=== PATIENT | female | born 1930 | race Caucasian/White ===

== ENCOUNTER 2017-01-15 16:55 | Inpatient (IN) | payer OTHER ==
[~2017-01-15] VITALS: Ht 165.1 cm; Wt 85.0 kg
[2017-01-15] MEDS ORDERED: ALBUT/IPRATROP 3MG/0.5MG NEB 3 ML VIAL INH STA (17:04)
--- NOTE | 2017-01-15 17:11 | EMERGENCY ROOM VISIT NOTE ---
History Report prepared by Amparo: Noah Jean Under the Supervision of: Dr. Vasiliy Quinones M.D. First contact with patient: 17:00 Stated Complaint: DIFFICULTY BREATHING/ [place] History of Present Illness The patient is an 86 year old female who presents to the Emergency Room with complaints of constant shortness of breath beginning four days ago. The patient states that she also has a productive cough. She reports that she has been on antibiotics for a couple days, but she is not getting better. She denies abdominal pain. She notes that she has been on Levaquin for the past three days.The patient states that she was not in the hospital recently. Nursing staff notes she has a history of pneumonia and a blood pressure above 120. EMS reports that patient was tachycardic and was having trouble breathing en route. They note the patient was given 500mL of fluid and a DuoNeb treatment. Source of History: patient, EMS, nursing staff Onset: four days ago Position: chest Quality: other (SOB) Timing: constant Associated Symptoms: + cough, No abdominal pain Review of Systems See HPI for pertinent positives & negatives. A total of 10 systems reviewed and were otherwise negative. Past Medical & Surgical Medical Problems: (1) Cough (2) Dyspnea on exertion (3) No Known Active Medical Problems Family History Patient reports no known family medical history. Social History Occupation Status: retired Current/Historical Medications Scheduled Allopurinol (Zyloprim), 100 MG PO DAILY Amlodipine (Norvasc), 5 MG PO DAILY Aspirin (Aspirin Ec), 81 MG PO DAILY Ciprofloxacin Ophth Soln (Ciprofloxacin Ophth Soln), 1 DROP OPR DIRECTED Insulin Aspart (Novolog), 8 UNITS SQ QAM Insulin Aspart (Novolog), 12 UNITS SQ NOON Insulin Aspart (Novolog), 4 UNITS SQ QPM Insulin Glargine (Lantus), 44 UNITS SC BID Ipratropium-Albuterol (Duoneb), 1 TREATMENT INH Q4H Levofloxacin (Levaquin), 500 MG PO DAILY Levothyroxine Sodium (Synthroid), 75 MCG PO DAILY Memantine Hcl (Namenda Xr), 14 MG PO DAILY Memantine Hcl (Namenda Xr), 7 MG PO DAILY Mirtazapine (Mirtazapine), 30 MG PO HS Multivitamin (Multivitamin), 1 TAB PO DAILY Nystatin (Topical) (Nystatin), 1 APPLN TOP BID Pantoprazole (Protonix), 40 MG PO DAILY Polyethylene Glycol 3350 (Miralax), 17 GM PO 2XWK Potassium Chloride (Micro-K Ext Rel), 10 MEQ PO Q2D Prednisone (Prednisone), 2 TAB PO DAILY Pregabalin (Lyrica), 75 MG PO BID Sennosides-Docusate Sodium (Senexon-S), 2 TAB PO HS Allergies Coded Allergies: Amoxicillin (Unverified Allergy, Unknown, UNKNOWN, 01/15/17) Cefazolin (Unverified Allergy, Unknown, UNKNOWN, 01/15/17) Cephalosporins (Unverified Allergy, Unknown, UNKNOWN, 01/15/17) Clavulanic Acid (Unverified Allergy, Unknown, UNKNOWN, 01/15/17) Fentanyl (Unverified Allergy, Unknown, UNKNOWN, 01/15/17) Sulfa Antibiotics (Unverified Allergy, Unknown, UNKNOWN, 01/15/17) Physical Exam Vital Signs Date Time Temp Pulse Resp B/P (MAP) Pulse Ox O2 Delivery O2 Flow Rate FiO2 01/15/17 19:32 186/79 01/15/17 19:16 85 15 01/15/17 19:11 88 22 01/15/17 19:01 196/80 01/15/17 18:41 91 16 01/15/17 18:36 92 23 01/15/17 18:32 180/81 01/15/17 18:06 87 15 01/15/17 18:01 170/84 01/15/17 18:00 187/81 01/15/17 17:55 83 16 97 01/15/17 17:25 86 17 93 01/15/17 17:15 37.3 79 18 179/81 94 Room Air 01/15/17 17:15 94 Room Air 01/15/17 17:11 82 01/15/17 17:07 179/81 Physical Exam GENERAL: Patient is chronic and unwell appearing. HEENT: No acute trauma, normocephalic atraumatic, mucous membranes moist, no nasal congestion, no scleral icterus. NECK: No stridor, no adenopathy, no meningismus, trachea is midline. LUNGS: Mildly dyspneic and tachypneic, productive cough, junky lung sounds throughout. HEART: Regular rate and rhythm. No murmurs, rubs, gallops appreciated. ABDOMEN: Soft, nontender, bowel sounds positive, no masses appreciated, no peritonitis. BACK: No midline tenderness, no CVA tenderness EXTREMITIES: Normal motion all extremities, no cyanosis, no edema. NEUROLOGIC: Alert and oriented, no acute motor or sensory deficits, no focal weakness, cranial nerves grossly intact. SKIN: No jaundice, no diaphoresis. Ulcers present. Medical Decision & Procedures ER Provider Diagnostic Interpretation: X ray results are stated below per my interpretation and the radiologist's interpretation. CHEST ONE VIEW PORTABLE CLINICAL HISTORY: ALVAREZ dyspnea COMPARISON STUDY: No previous studies for comparison. FINDINGS: Bipolar cardiac pacemaker in good position. Mild atelectasis left base and right suprahilar region. Lungs otherwise appear clear. IMPRESSION: Scattered atelectasis . Otherwise negative study The above report was generated using voice recognition software. It may contain grammatical, syntax or spelling errors. Electronically signed by: Kun Berrios M.D. 01/15/2017 5:53 PM Dictated Date/Time: 01/15/2017 5:53 PM Laboratory Results 01/15/17 16:30 Red Blood Count 4.98, Mean Corpuscular Volume 83.7, Mean Corpuscular Hemoglobin 27.7, Mean Corpuscular Hemoglobin Concent 33.1, Mean Platelet Volume 10.3, Neutrophils (%) (Auto) 53.2, Lymphocytes (%) (Auto) 35.8, Monocytes (%) (Auto) 7.6, Eosinophils (%) (Auto) 1.7, Basophils (%) (Auto) 0.1, Neutrophils # (Auto) 7.55, Lymphocytes # (Auto) 5.09, Monocytes # (Auto) 1.08, Eosinophils # (Auto) 0.24, Basophils # (Auto) 0.02 01/15/17 16:30 Test 01/15/17 16:30 01/15/17 18:11 White Blood Count 14.21 K/uL (4.8-10.8) Red Blood Count 4.98 M/uL (4.2-5.4) Hemoglobin 13.8 g/dL (12.0-16.0) Hematocrit 41.7 % (37-47) Mean Corpuscular Volume 83.7 fL (80-100) Mean Corpuscular Hemoglobin 27.7 pg (25-34) Mean Corpuscular Hemoglobin Concent 33.1 g/dl (32-36) Platelet Count 338 K/uL (130-400) Mean Platelet Volume 10.3 fL (7.4-10.4) Neutrophils (%) (Auto) 53.2 % Lymphocytes (%) (Auto) 35.8 % Monocytes (%) (Auto) 7.6 % Eosinophils (%) (Auto) 1.7 % Basophils (%) (Auto) 0.1 % Neutrophils # (Auto) 7.55 K/uL (1.4-6.5) Lymphocytes # (Auto) 5.09 K/uL (1.2-3.4) Monocytes # (Auto) 1.08 K/uL (0.11-0.59) Eosinophils # (Auto) 0.24 K/uL (0-0.5) Basophils # (Auto) 0.02 K/uL (0-0.2) RDW Standard Deviation 49.2 fL (36.4-46.3) RDW Coefficient of Variation 16.2 % (11.5-14.5) Immature Granulocyte % (Auto) 1.6 % Immature Granulocyte # (Auto) 0.23 K/uL (0.00-0.02) Red Blood Cell Morphology Unremarkable Anion Gap 6.0 mmol/L (3-11) Est Creatinine Clear Calc Drug Dose 20.3 ml/min Estimated GFR () 23.9 Estimated GFR (Non- 20.6 BUN/Creatinine Ratio 15.3 (10-20) Calcium Level 8.8 mg/dl (8.5-10.1) Total Bilirubin 0.3 mg/dl (0.2-1) Direct Bilirubin < 0.1 mg/dl (0-0.2) Aspartate Amino Transf (AST/SGOT) 82 U/L (15-37) Alanine Aminotransferase (ALT/SGPT) 80 U/L (12-78) Alkaline Phosphatase 73 U/L (45-117) Pro-B-Type Natriuretic Peptide 502 pg/ml (0-1800) Total Protein 7.5 gm/dl (6.4-8.2) Albumin 2.9 gm/dl (3.4-5.0) Bedside Lactic Acid Venous 1.11 mmol/L (0.90-1.70) Laboratory results as reviewed by me. Medications Administered Medications (Trade) Dose Ordered Sig/Bryon Route Start Time Stop Time Status Last Admin Dose Admin Albuterol/ Ipratropium (Duoneb) 3 ml NOW STAT INH 01/15/17 17:04 01/15/17 17:08 DC 01/15/17 17:28 3 ML Methylprednisolone Sodium Succinate (Solu-Medrol IV) 125 mg NOW STAT IV 01/15/17 18:31 01/15/17 18:32 DC 01/15/17 18:47 125 MG Doxycycline Hyclate 100 mg/ Dextrose 110 ml @ 50 mls/hr NOW IV 01/15/17 18:45 01/15/17 19:58 DC 01/15/17 19:18 50 MLS/HR Dextrose (Dextrose 50% 50ML Syringe) 50 ml NOW STAT IV 01/15/17 18:53 01/15/17 18:54 DC 01/15/17 19:15 50 ML ECG Indication: SOB/dyspnea Rate (beats per minute): 89 Rhythm: other (Atrial sensed ventricular pace) Findings: no acute ischemic change, no ectopy, other (Prolonged QT/c of 518) ED Course 1701: The patient was evaluated in room A10. A complete history and physical exam was performed. 1704: Ordered Duoneb 3ml INH 1822: I reevaluated the patient. Her breathing has improved, but there are still crackles in her lungs. 1831: Ordered Solu-Medrol IV 125mg IV 1845: Ordered Doxycycline Hyclate 100 mg/Dextrose 110ml @ 50mls/hr IV 1853: Ordered Dextrose 50ml IV 1902: I discussed the patient's case with Dr. Gay, [facility] Hospitalist. The patient will be evaluated for further treatment. 1906: Upon reevaluation, the patient is felling better. Discussed results and treatment plan with the patient. She verbalized understanding and agreement with the treatment plan. The patient will be evaluated for further management. She denies a history of renal failure. Medical Decision Differential: Infectious, Reactive Airway Disease, Pneumonia, Pneumothorax, COPD , CHF, ACS, Pulmonary Embolism, MSK, GI, Dissection, amongst other etiologies entertained. 86 yr old female with unclear PMH arrives with productive cough despite 3 days levaquin/steroids usage. Improved with nebs but continued wheezing. She is ill appearing initially though much better with nebs. CXR unremarkable. CR elevated and she states this is new. With continued poor lung exam I feel bringing in to better figure out what's going on is necessary. Seems unlikely PE and with Cr can not due CT PE study. Glucose 40 though really she seems quite with it. Given IV dextrose and eating food. Medication Reconcilliation Current Medication List: was personally reviewed by me Blood Pressure Screening Patient's blood pressure: Elevated blood pressure Monitored by hospitalist Consults Time Called: 1657 Consulting Physician: Yair Ivan Hospitalist Returned Call: [phone] I discussed the patient's case with Yair Ivan Hospitalist. The patient will be evaluated for further treatment. Impression Primary Impression: COPD exacerbation Additional Impressions: Renal failure Hypoglycemia Scribe Attestation The scribe's documentation has been prepared under my direction and personally reviewed by me in its entirety. I confirm that the note above accurately reflects all work, treatment, procedures, and medical decision making performed by me. Departure Information Dispostion Being Evaluated By Hospitalist Problem Qualifiers
[2017-01-15] MEDS ORDERED: PRED20TA PO (17:24)
[2017-01-15] MEDS ORDERED: POLY335019 PO (17:24)
[2017-01-15] MEDS ORDERED: SENN-83 PO (17:24)
[2017-01-15] MEDS ORDERED: PANT40TA PO (17:24)
[2017-01-15] MEDS ORDERED: IPRASOL4 INH (17:24)
[2017-01-15] MEDS ORDERED: PREG1CAP28 PO (17:24)
[2017-01-15] MEDS ORDERED: NYST80OI TOP (17:24)
[2017-01-15] MEDS ORDERED: ALLO100T PO (17:24)
[2017-01-15] MEDS ORDERED: ASPI81TA28 PO (17:24)
[2017-01-15] MEDS ORDERED: MULT-506 PO (17:24)
[2017-01-15] MEDS ORDERED: POTA10CA28 PO (17:24)
[2017-01-15] MEDS ORDERED: NVLG SQ ×3 (17:24)
[2017-01-15] MEDS ORDERED: RMR15 PO (17:24)
[2017-01-15] MEDS ORDERED: SYN75 PO (17:24)
[2017-01-15] MEDS ORDERED: CIPR0.3S4 OPR (17:24)
[2017-01-15] MEDS ORDERED: MEMA1CAP2 PO (17:24)
[2017-01-15] MEDS ORDERED: MEMA1CAP3 PO (17:24)
[2017-01-15] MEDS ORDERED: AMLO-110 PO (17:24)
[2017-01-15] MEDS ORDERED: INSDGI SC (17:24)
[2017-01-15] MEDS ORDERED: LEVO-366 PO (17:24)
[2017-01-15 17:32] LABS: HEMATOCRIT 41.7 % (37-47); MEAN CELL VOLUME 83.7 fL (80-100); MEAN CORPUSCULAR HEMOGLOBIN 27.7 pg (25-34); MEAN CORPUSCULAR HGB CONC 33.1 g/dl (32-36); MEAN PLATELET VOLUME 10.3 fL (7.4-10.4); PLATELET COUNT 338 K/uL (130-400); RED BLOOD COUNT 4.98 M/uL (4.2-5.4); WHITE BLOOD COUNT 14.21 K/uL (4.8-10.8)
--- NOTE | 2017-01-15 17:55 | DIAGNOSTIC IMAGING REPORT ---
CHEST ONE VIEW PORTABLE CLINICAL HISTORY: ALVAREZ dyspnea COMPARISON STUDY: No previous studies for comparison. FINDINGS: Bipolar cardiac pacemaker in good position. Mild atelectasis left base and right suprahilar region. Lungs otherwise appear clear. IMPRESSION: Scattered atelectasis . Otherwise negative study The above report was generated using voice recognition software. It may contain grammatical, syntax or spelling errors. Electronically signed by: Kun Berrios M.D. 01/15/2017 5:53 PM Dictated Date/Time: 01/15/2017 5:53 PM
[2017-01-15 18:26] LABS: BASO % 0.1 %; BASO ABS # 0.02 K/uL (0-0.2); COMPLETE YES; EOS % 1.7 %; IG% 1.6 %; LYMPH % 35.8 %; LYMPH ABS # 5.09 K/uL (1.2-3.4); MONO % 7.6 %; NEUT % 53.2 %
[2017-01-15] MEDS ORDERED: METHYLPREDNISOLONE 125 MG VIAL IV STA (18:31)
[2017-01-15] MEDS ORDERED: DOXYCYCLINE IV 100 MG in DEXTROSE 5% 100ML 100 ML IV SCH (18:45)
[2017-01-15] MEDS ORDERED: DEXTROSE 50% 50 ML SYR IV STA (18:53)
[2017-01-15 18:54] LABS: ALKALINE PHOSPHATASE 73 U/L (45-117); ALT/SGPT 80 U/L (12-78); AST/SGOT 82 U/L (15-37); BLOOD UREA NITROGEN 32 mg/dl (7-18); BUN/CREATININE RATIO 15.3 (10-20); CALCIUM 8.8 mg/dl (8.5-10.1); CARBON DIOXIDE 28 mmol/L (21-32); CHLORIDE 106 mmol/L (98-107); GLUCOSE 40 mg/dl (70-99); POTASSIUM 3.8 mmol/L (3.5-5.1); SODIUM 140 mmol/L (136-145)
[2017-01-15] MEDS ORDERED: GLUCOSE 10 TABS/TUBE PO PRN (19:45)
[2017-01-15] MEDS ORDERED: GLUCOSE 40% GEL 15 GM TUBE PO PRN (19:45)
[2017-01-15] MEDS ORDERED: GLUCAGON FOR INJ 1 MG VIAL SQ PRN (19:45)
[2017-01-15] MEDS ORDERED: ONDANSETRON INJ 2 MG/ML 2 ML VIAL IV PRN (19:45)
[2017-01-15] MEDS ORDERED: DEXTROSE 50% 50 ML SYR IV PRN (19:45)
[2017-01-15] MEDS ORDERED: PHARMACY GLYCEMIC MGMT CONSULT PRN (19:52)
[2017-01-15] MEDS ORDERED: LEVOFLOXACIN CONSULT ACTIVE PRN (20:00)
[2017-01-15 20:03] VITALS: O2SAT 97; Ht 165.1 cm; Wt 85.0 kg
[2017-01-15 20:35] VITALS: BP 146/76; PULSE 82; TEMP 37; O2SAT 96
--- NOTE | 2017-01-15 20:56 | History and Physical ---
History & Physical Date & Time of Service: Jan 15, 2017 at 19:58 Chief Complaint: Difficulty Breathing/ [place] Primary Care Physician: Lisy Toure M.D. History of Present Illness Source: [facility] Patient is an 86yo female with a PMH of DM II (on insulin), HTN, chronic diastolic HF, hypothyroidism and severe dementia who presents with a cough and dyspnea over the past few days. Patient is a resident at [facility], where she was diagnosed with bacterial PNA on 01/10/17 and started on Levaquin, steroids and neb treatments. CXR also showed pulmonary vascular congestion, so patient was on Lasix 40mg x 2 days and Lasix 20mg x 3 days. Per note from [facility], patient was re-examined today after daughter noticed increased fatigue, cough and dyspnea. Was sent by EMS to the ED for further evaluation. Due to severe dementia, patient is not a reliable historian. Did not know she had been previously diagnosed with PNA. Patient is still dyspneic after breathing treatments but says that wheezing has stopped. Endorses itchy eyes and cough with productive yellow sputum. Denies fever, chills, rhinorrhea, nasal congestion, CP, abd pain or LE swelling. In the ER, patient was found to be hypoglycemic to 40. Course included D50 as well as neb treatments, IV steroids and doxycycline. Family History Patient reports no known family medical history. Social History Smoking Status: Former Smoker Occupational Status: retired Allergies Coded Allergies: Amoxicillin (Unverified Allergy, Unknown, UNKNOWN, 01/15/17) Cefazolin (Unverified Allergy, Unknown, UNKNOWN, 01/15/17) Cephalosporins (Unverified Allergy, Unknown, UNKNOWN, 01/15/17) Clavulanic Acid (Unverified Allergy, Unknown, UNKNOWN, 01/15/17) Fentanyl (Unverified Allergy, Unknown, UNKNOWN, 01/15/17) Sulfa Antibiotics (Unverified Allergy, Unknown, UNKNOWN, 01/15/17) Home Medications Scheduled Allopurinol (Zyloprim), 100 MG PO DAILY Amlodipine (Norvasc), 5 MG PO DAILY Aspirin (Aspirin Ec), 81 MG PO DAILY Ciprofloxacin Ophth Soln (Ciprofloxacin Ophth Soln), 1 DROP OPR DIRECTED Insulin Aspart (Novolog), 8 UNITS SQ QAM Insulin Aspart (Novolog), 12 UNITS SQ NOON Insulin Aspart (Novolog), 4 UNITS SQ QPM Insulin Glargine (Lantus), 44 UNITS SC BID Ipratropium-Albuterol (Duoneb), 1 TREATMENT INH Q4H Levofloxacin (Levaquin), 500 MG PO DAILY Levothyroxine Sodium (Synthroid), 75 MCG PO DAILY Memantine Hcl (Namenda Xr), 14 MG PO DAILY Memantine Hcl (Namenda Xr), 7 MG PO DAILY Mirtazapine (Mirtazapine), 30 MG PO HS Multivitamin (Multivitamin), 1 TAB PO DAILY Nystatin (Topical) (Nystatin), 1 APPLN TOP BID Pantoprazole (Protonix), 40 MG PO DAILY Polyethylene Glycol 3350 (Miralax), 17 GM PO 2XWK Potassium Chloride (Micro-K Ext Rel), 10 MEQ PO Q2D Prednisone (Prednisone), 2 TAB PO DAILY Pregabalin (Lyrica), 75 MG PO BID Sennosides-Docusate Sodium (Senexon-S), 2 TAB PO HS Review of Systems Ten systems reviewed and negative except as noted in the HPI. Physical Exam Vital Signs Date Time Temp Pulse Resp B/P (MAP) Pulse Ox O2 Delivery O2 Flow Rate FiO2 01/15/17 19:32 186/79 01/15/17 19:16 85 15 01/15/17 19:11 88 22 01/15/17 19:01 196/80 01/15/17 18:41 91 16 01/15/17 18:36 92 23 01/15/17 18:32 180/81 01/15/17 18:06 87 15 01/15/17 18:01 170/84 01/15/17 18:00 187/81 01/15/17 17:55 83 16 97 01/15/17 17:25 86 17 93 01/15/17 17:15 37.3 79 18 179/81 94 Room Air 01/15/17 17:15 94 Room Air 01/15/17 17:11 82 01/15/17 17:07 179/81 General Appearance: WD/WN, + mild distress (Patient ill appearing and confused but cooperative on exam. ) Head: normocephalic, atraumatic Eyes: + pertinent finding (Esotropia of L eye. Eyelids with erythema bilaterally.) ENT: hearing grossly normal Neck: supple, no adenopathy, trachea midline Respiratory/Chest: chest non-tender, no respiratory distress, no accessory muscle use, + rhonchi, + wheezing Cardiovascular: regular rate, rhythm Abdomen/GI: normal bowel sounds, non tender, soft, no organomegaly Extremities/Musculoskelatal: normal inspection, no calf tenderness, normal capillary refill, no pedal edema Neurologic/Psych: alert (Oriented to self. Confused about place, time, situation 2/2 dementia) Skin: normal color, warm/dry, no rash (Some scabbed lesions present on chest. No surrounding erythema, drainage. ) Diagnostics Laboratory Results Results Past 24 Hours Test 01/15/17 16:30 01/15/17 18:11 Range/Units White Blood Count 14.21 4.8-10.8 K/uL Red Blood Count 4.98 4.2-5.4 M/uL Hemoglobin 13.8 12.0-16.0 g/dL Hematocrit 41.7 37-47 % Mean Corpuscular Volume 83.7 80-100 fL Mean Corpuscular Hemoglobin 27.7 25-34 pg Mean Corpuscular Hemoglobin Concent 33.1 32-36 g/dl Platelet Count 338 130-400 K/uL Mean Platelet Volume 10.3 7.4-10.4 fL Neutrophils (%) (Auto) 53.2 % Lymphocytes (%) (Auto) 35.8 % Monocytes (%) (Auto) 7.6 % Eosinophils (%) (Auto) 1.7 % Basophils (%) (Auto) 0.1 % Neutrophils # (Auto) 7.55 1.4-6.5 K/uL Lymphocytes # (Auto) 5.09 1.2-3.4 K/uL Monocytes # (Auto) 1.08 0.11-0.59 K/uL Eosinophils # (Auto) 0.24 0-0.5 K/uL Basophils # (Auto) 0.02 0-0.2 K/uL RDW Standard Deviation 49.2 36.4-46.3 fL RDW Coefficient of Variation 16.2 11.5-14.5 % Immature Granulocyte % (Auto) 1.6 % Immature Granulocyte # (Auto) 0.23 0.00-0.02 K/uL Red Blood Cell Morphology Unremarkable Sodium Level 140 136-145 mmol/L Potassium Level 3.8 3.5-5.1 mmol/L Chloride Level 106 98-107 mmol/L Carbon Dioxide Level 28 21-32 mmol/L Anion Gap 6.0 3-11 mmol/L Blood Urea Nitrogen 32 7-18 mg/dl Creatinine 2.10 0.60-1.20 mg/dl Est Creatinine Clear Calc Drug Dose 20.3 ml/min Estimated GFR () 23.9 Estimated GFR (Non- 20.6 BUN/Creatinine Ratio 15.3 10-20 Random Glucose 40 70-99 mg/dl Calcium Level 8.8 8.5-10.1 mg/dl Total Bilirubin 0.3 0.2-1 mg/dl Direct Bilirubin < 0.1 0-0.2 mg/dl Aspartate Amino Transf (AST/SGOT) 82 15-37 U/L Alanine Aminotransferase (ALT/SGPT) 80 12-78 U/L Alkaline Phosphatase 73 45-117 U/L Troponin I < 0.015 0-0.045 ng/ml Pro-B-Type Natriuretic Peptide 502 0-1800 pg/ml Total Protein 7.5 6.4-8.2 gm/dl Albumin 2.9 3.4-5.0 gm/dl Bedside Lactic Acid Venous 1.11 0.90-1.70 mmol/L Microbiology Results 01/15/17 Blood Culture, Received Pending 01/15/17 Blood Culture, Received Pending Diagnostic Radiology CXR: IMPRESSION: Scattered atelectasis . Otherwise negative study EKG Atrial-sensed ventricular-paced rhythm Impression Assessment and Plan Patient is an 86yo female with a PMH of DM II (on insulin), HTN, chronic diastolic HF, hypothyroidism and severe dementia who presents with a cough and dyspnea over the past few days. Bronchitis: -Diagnosed with bacterial PNA on 01/10 -Has been on Levaquin, duonebs, prednisone -Leukocytosis of 14, afebrile, lactate of 1.1 -Repeat CXR today shows resolution of L basilar opacities -Still having residual URI symptoms: productive cough, dyspnea -Continue Levaquin (renally dosed), duonebs -Added IV solu-medrol, Robitussin Compensated diastolic HF: -CXR on 01/10 showed pulm vascular congestion -Completed Lasix 40mg PO x 2 days, 20mg PO x 3 days -Repeat CXR without pulm edema, no crackles on exam, no LE swelling -Echo ordered -No indication for continuing Lasix due to VICTORINO, euvolemic state DM II (on insulin): -Hypoglycemic to 40 on initial BMP -Given D50 in ED -Not symptomatic on exam -Pharm consulted for glycemic mgmt -BG checks Q4H VICTORINO on CKD III: -Cr of 2.1 on initial lab work -Baseline GFR >30, currently 20 -Likely 2/2 Lasix treatment over the past 5 days, daily Levaquin -Renally dose abx, avoid nephrotoxic agents -Repeat lab work in AM Transaminitis: -AST, ALT slightly elevated at 82 and 80 respectively -No history of liver disease, per chart review -Repeat CMP ordered for AM HTN: -BP slightly elevated -Likely 2/2 steroid use, anxiety -Continue home meds -Monitor vitals Severe dementia: -Stable -Patient oriented to self but not to location, time, situation -Continue home meds Anxiety: -Stable -Continue home meds -Reassured/reoriented regarding treatment plan Hypothyroidism: -Stable -Check TSH in AM -Continue home meds Blepharitis: -Continue home eye drops -On IV abx for URI DVT Ppx: heparin Code status: DNR, per paperwork sent by [facility] PCP: Tejal Dispo: Plan to return to [facility] once medically stable for discharge. SW consult placed. Attending addendum: Agree with the above H&P; please refer to above for more details. Patient is an 86 yo female who presented to the ER for complaints that she was hypoglycemic and SOB/hypoxic. The patient was also found to have hypoglycemia per EMS. The patient had a CXR at [facility] on 01/10 which showed congestion and was treated with lasix and also treated with levaquin + prednisone however the patient worsened today and was thus sent to the ER. Cardiac: RR, S1 and S2 auscultated Resp: decreased breath sound B/L; + rhonchi, mild end expiratory wheeze GI: soft, NT, ND, +BS, no hepatosplenomegaly HYPOXIA/SOB: most likely related to bronchitis -no prior hx of COPD or asthma -symptoms seem to worsen when the patient was weaning from steroids at [facility], will start IV solu medrol followed by slow taper -continue levaquin -appears euvolemic, CXR negative, will hold off on diuretics -continue nebs scheduled and PRN -oxygen therapy HYPOGLYCEMIA: -hold insulin for now -consult Glycemic Pharmacy Level of Care Med/Surg Resuscitation Status DO NOT RESUSCITATE VTE Prophylaxis VTE Risk Assessment Done? Y/N: Yes Risk Level: Moderate Given or contraindicated: Unfractionated heparin SQ Social Service Consult Lives in [facility]
--- NOTE | 2017-01-15 21:11 | Pharmacy Progress Note ---
Glycemic Control Intl Consult Date of Service Jan 15, 2017. Scope Glycemic Pharmacist consulted by HAM Danielle on 01/15/17 for glycemic control and to write orders per [facility] inpatient glycemic control protocol Objective Weight (Kilograms): 85.000 Accuchecks BSG (last 24hrs): Test 01/15/17 16:30 01/15/17 20:53 Random Glucose 40 mg/dl (70-99) Bedside Glucose 187 mg/dl (70-90) Laboratory Data (last 24hrs) Test 01/15/17 16:30 Anion Gap 6.0 mmol/L BUN/Creatinine Ratio 15.3 Blood Urea Nitrogen 32 mg/dl Creatinine 2.10 mg/dl Potassium Level 3.8 mmol/L Sodium Level 140 mmol/L White Blood Count 14.21 K/uL Red Blood Count 4.98 M/uL Hemoglobin 13.8 g/dL Hematocrit 41.7 % Mean Corpuscular Volume 83.7 fL Mean Corpuscular Hemoglobin 27.7 pg Mean Corpuscular Hemoglobin Concent 33.1 g/dl Platelet Count 338 K/uL Mean Platelet Volume 10.3 fL Neutrophils (%) (Auto) 53.2 % Lymphocytes (%) (Auto) 35.8 % Monocytes (%) (Auto) 7.6 % Eosinophils (%) (Auto) 1.7 % Basophils (%) (Auto) 0.1 % Neutrophils # (Auto) 7.55 K/uL Lymphocytes # (Auto) 5.09 K/uL Monocytes # (Auto) 1.08 K/uL Eosinophils # (Auto) 0.24 K/uL Basophils # (Auto) 0.02 K/uL Recent Pertinent Medications Outpatient Anti-diabetic Regimen: * Lantus 44 units BID * Novolog 12/22/4 units with B/L/D * A1c unknown Risk Factors for Insulin Resistance: * Steroids * Infection * Diet Assessment & Plan ASSESSMENT: * 86 yo diabetic F admitted to ED with SOB/pneumonia from [facility] * BSG on admission 40 mg/dL * I can't confirm if patient was symptomatic or not (patient with severe dementia per MD) * D50 bolus X 1 given in addition to Solumedrol 125 mg IV X 1 * Patient was also given dinner tray (unknown amount of carbs) PLUS 2 cups of orange juice * No recheck done and patient transferred to medical floor * Spoke with MD, unsure best course to manage patient * At this point, recheck patient KATHY on admission to floor * BSG 187 which further complicates the situation * I would have assumed her to be far above goal range given D50/dinner/OJ/ steroids * Since she is within goal range and I can confirm Lantus given at [facility] I want to hold all insulin and monitor patient frequently * Spoke with PA regarding plan through the night- insulin drip is not out of the question and may be the safest route as we do not want to overestimate needs * ADA & AACE recommend a goal blood sugar range 140-180 mg/dl for the majority of critically ill & non-critically ill patients. However, more stringent targets may be selected in individual cases. PLAN FOR INPATIENT GLYCEMIC CONTROL: * Continue checking BSG frequently Q2-4 hr checks * Start insulin drip for BSG >250 mg/dL * Goal range 120-200 mg/dL * Please note that the plan above was derived based on current level of insulin resistance and hospital stress. These recommendations are appropriate for inpatient admission only. Plan of care upon discharge will need to be reassessed to avoid potential outpatient hypo/hyperglycemia. Thank you.
[2017-01-15] MEDS: DOCUSATE SODIUM/SENNA 50/8.6MG TAB PO SCH (22:00)
[2017-01-15] MEDS: NYSTATIN OINT 15 GM TUBE EXT SCH (22:01)
[2017-01-15] MEDS: CIPROFLOXACIN HCL 0.3% OP SOLN 2.5 ML BTL OPB SCH (22:01)
[2017-01-15] MEDS: MIRTAZAPINE TAB 15 MG TAB PO SCH (22:01)
[2017-01-15] MEDS: PREGABALIN 75 MG CAP PO SCH (22:03)
[2017-01-15] MEDS: HEPARIN SOD 5000 UNIT/0.5 ML CARP SQ SCH (22:04)
[2017-01-15] MEDS ORDERED: INSULIN IV INFUSION PROTOCOL SCH (22:45)
[2017-01-15 22:46] LABS: PROTHROMBIN TIME (PATIENT) 10.9 SECONDS (9.0-12.0)
[2017-01-15] MEDS ORDERED: INSULIN REGULAR 250 UNITS in SODIUM CHLORIDE 0.9% 250ML 250 ML IV ONE (23:45)
[2017-01-15] MEDS ORDERED: INSULIN HUMAN REGULAR IV BOLUS 2 UNIT in SYRINGE 0 ML IV SCH (23:45)
[2017-01-16] VITALS (13 sets, daily range): BP systolic 129–159; BP diastolic 54–75; PULSE 75–90; TEMP 36.4–36.8; O2SAT 93–96
[2017-01-16] MEDS: ALBUT/IPRATROP 3MG/0.5MG NEB 3 ML VIAL INH SCH ×7 (00:20→23:04)
[2017-01-16] MEDS: INSULIN REGULAR 250 UNITS in SODIUM CHLORIDE 0.9% 250ML 250 ML IV SCH ×14 (01:14→17:11)
[2017-01-16] MEDS: METHYLPREDNISOLONE IV 60 MG in SYRINGE 0 ML IV SCH ×2 (01:58→09:47)
[2017-01-16 04:14] LABS: HEMATOCRIT 39.5 % (37-47); MEAN CELL VOLUME 84.6 fL (80-100); MEAN CORPUSCULAR HEMOGLOBIN 26.8 pg (25-34); MEAN CORPUSCULAR HGB CONC 31.6 g/dl (32-36); MEAN PLATELET VOLUME 9.6 fL (7.4-10.4); PLATELET COUNT 300 K/uL (130-400); RED BLOOD COUNT 4.67 M/uL (4.2-5.4); WHITE BLOOD COUNT 8.47 K/uL (4.8-10.8)
[2017-01-16] MEDS: LEVOTHYROXINE 75 MCG TAB PO SCH (06:02)
[2017-01-16 06:05] LABS: ESTIMATED AVERAGE GLUCOSE 183 mg/dl; HA1C FLAG Normal (Normal)
[2017-01-16] MEDS: ASPIRIN 81 MG ECTAB PO SCH (08:05)
[2017-01-16] MEDS: AMLODIPINE BESYLATE 5 MG TAB PO SCH (08:05)
[2017-01-16] MEDS: PANTOprazole SOD 40 MG TAB PO SCH (08:05)
[2017-01-16] MEDS: ALLOPURINOL 100 MG TAB PO SCH (08:05)
[2017-01-16] MEDS: MULTIVITAMIN TAB PO SCH (08:05)
[2017-01-16] MEDS: CIPROFLOXACIN HCL 0.3% OP SOLN 2.5 ML BTL OPB SCH ×2 (08:06→20:15)
[2017-01-16] MEDS: NYSTATIN OINT 15 GM TUBE EXT SCH ×2 (08:06→20:15)
[2017-01-16] MEDS: PREGABALIN 75 MG CAP PO SCH ×2 (08:07→20:16)
[2017-01-16] MEDS: INSULIN ASPART 100 UNITS/ML 3 ML PEN SC SCH ×4 (08:30→20:30)
[2017-01-16] MEDS: HEPARIN SOD 5000 UNIT/0.5 ML CARP SQ SCH ×2 (08:30→20:30)
[2017-01-16] MEDS ORDERED: MEMANTINE HCL 7 MG PO SCH (09:00)
[2017-01-16] MEDS ORDERED: NURSING DECISION MEDICATION ORDER SCH (09:45)
[2017-01-16] MEDS ORDERED: MICONAZOLE NITRATE POWDER 43 GM EXT PRN (10:00)
[2017-01-16 10:32] LABS: BETA-HYDROXYBUTYRATE 1.6 mg/dL (0.2-2.81)
[2017-01-16] MEDS ORDERED: INSULIN GLARGINE SOLOSTAR 100 UNITS/ML 3 ML PEN SC ONE (11:30)
[2017-01-16 14:15] LABS: URINE APPEARANCE CLEAR (CLEAR); URINE BILIRUBIN NEG (NEG); URINE COLOR YELLOW; URINE EPITHELIAL CELL AUTO 0-5 /lpf (0-5); URINE NITRITE POS (NEG); URINE PH 5.5 (4.5-7.5); URINE SPECIFIC GRAVITY 1.022 (1.000-1.030); UROBILINOGEN NEG (NEG)
[2017-01-16 14:16] LABS: MANUAL MICROSCOPIC REQUIRED? NO; REVIEW REQ? NO
--- NOTE | 2017-01-16 14:18 | Pharmacy Progress Note ---
Glycemic Control Progress Note Date of Service Jan 16, 2017. Scope Glycemic Pharmacist consulted for glycemic control to write orders per [facility] inpatient glycemic control protocol. Objective Accuchecks BSG (last 24hrs): Test 01/15/17 16:30 01/15/17 20:53 01/15/17 22:30 01/16/17 00:50 Random Glucose 40 mg/dl (70-99) Bedside Glucose 187 mg/dl (70-90) 230 mg/dl (70-90) 267 mg/dl (70-90) Test 01/16/17 01:52 01/16/17 02:55 01/16/17 03:55 01/16/17 04:57 Bedside Glucose 246 mg/dl (70-90) 230 mg/dl (70-90) 239 mg/dl (70-90) 232 mg/dl (70-90) Test 01/16/17 05:58 01/16/17 06:44 01/16/17 07:35 01/16/17 08:06 Bedside Glucose 234 mg/dl (70-90) 200 mg/dl (70-90) 202 mg/dl (70-90) 191 mg/dl (70-90) Test 01/16/17 09:08 01/16/17 09:46 01/16/17 10:06 01/16/17 11:11 Bedside Glucose 315 mg/dl (70-90) 296 mg/dl (70-90) 233 mg/dl (70-90) Random Glucose 328 mg/dl (70-99) Test 01/16/17 12:02 01/16/17 13:03 Bedside Glucose 229 mg/dl (70-90) 192 mg/dl (70-90) HbA1c: Test 01/16/17 03:55 Hemoglobin A1c 8.0 % (4.5-5.6) H Recent Pertinent Medications The patient is currently receiving: * Insulin infusion with average rate ~2.9 units/hr Outpatient Anti-Diabetic Meds Lantus 44 units SQ BID Novolog 8 units with breakfast, 12 units with lunch, and 4 units with dinner Assessment & Plan ASSESSMENT: * See progress note from 01/16/17 for more background info, in short: * Pt receiving SQ basal bolus insulin regimen for hyperglycemia secondary to baseline DM (outpatient regimen on hold),infection (PNA), and steroids ( currently receiving Solu-Medrol 60 mg IV [id number]) * Patient is currently receiving an average of ? units of insulin per day (on insulin infusion requiring around 70 units per day if projected) * ? units of basal insulin * ? units of prandial/correctional insulin * BSGs ranging 187 - 328 mg/dl over the past 24hrs * Changes needed to insulin regimen: * AM Fasting BSG = 202 mg/dl. Insulin infusion running at 2.9 units/hr. Received MAR from [facility] which indicates that patient has had some lower blood sugars recently. Therefore, a dose of 88 units of basal is too much. estimate that with low blood sugars it is reasonable to give at least 70 units of basal insulin daily (drip estimates 24 hour dose to be 70 units) HOWEVER, patient received Lantus 44 units yesterday so reasonable to give slightly small dose to ease patient off of insulin infusion. Will also schedule small dose of Lantus this evening if patient's blood sugar elevated. * Post-prandial BSGs are not able to be determined at this time. Evaluated TDD of 112 units (home dose which may cover steroid usage) - will start these parameters. Slightly tighter than weight based dosing but reasonable with high steroid use. * Total daily dose = unknown amount units. PLAN FOR INPATIENT GLYCEMIC CONTROL: * Lantus 60 units SQ x 1 then Lantus scale this evening (hold if blood sugar less than 140 mg/dL; Lantus 15 units if blood sugar 140-180 mg/dL; Lantus 20 units if blood sugar greater than 180 mg/dL) * Start correction factor of 15 mg/dl/unit at bedtime * Start carb ratio of 1 unit per 5 grams CHO consumed (include fixed carbohydrate ratio while patient is on infusion) * Start goal range of Low 110 mg/dL - High 140 mg/dL once infusion is discontinued * Please note that the plan above was derived based on current level of insulin resistance and hospital stress. These recommendations are appropriate for inpatient admission only. Plan of care upon discharge will need to be reassessed to avoid potential outpatient hypo/hyperglycemia. Thank you.
[2017-01-16 17:33] LABS: BUN/CREATININE RATIO 23.3 (10-20); CALCIUM 9.1 mg/dl (8.5-10.1); CREATININE 1.5 mg/dl (0.60-1.20); POTASSIUM 4.5 mmol/L (3.5-5.1)
--- NOTE | 2017-01-16 18:08 | Progress Note ---
Internal Med Progress Note Date of Service: Jan 16, 2017. Provider Documentation: SUBJECTIVE: patient reports history of cough with sputum from custodial. denies chest pain. denies abdominal pain. she has been reporting generalized pain to nurses but nonfocal exam OBJECTIVE: Exam: General- awake and alert, able to speak in full sentences Eyes- some erythema of eyelids, no discharges from eyes, ENT- no nasal or oral discharges Neck- nontender Lungs- patient coughing when asked to take deep breaths on lung auscultation Heart- regular heart rate, chest nontender Abdomen- soft, nontender, + bowel sounds Extremities- no acute findings Neuro-no focal neurological deficits Lab data as noted below. ASSESSMENT & PLAN: Patient is an 86yo female with a PMH of DM II (on insulin), HTN, chronic diastolic HF, hypothyroidism and severe dementia, with pre-admission history of bacterial PNA on 01/10 on Levaquin who presents to the ED from custodial for cough and dyspnea and was found to be hypoglycemic. Patient subsequently received D50 and IV solumedrol. Patient then had glucose levels above 200s and then over 300s and was then started on insulin drip for careful glycemic control. Patient from admission 01/15/17 was started on IV Levaquin renally dosed for pneumonia vs bronchitis. However, blood culture from admission resulting in gram positive cocci in clusters. Respiratory: -CXR on 01/15/17: Bipolar cardiac pacemaker in good position. Mild atelectasis left base and right suprahilar region. Lungs otherwise appear clear. -continue Levaquin renally dosed IV and add Vancomycin for coverage of gram positive cocci in clusters in case this is MRSA -discontinue IV solumedrol and will switch to PO prednisone due to hyperglycemia Compensated diastolic HF: DM II (on insulin): -pharmacy recommending the following: Lantus 60 units SQ x 1 then Lantus scale this evening (hold if blood sugar less than 140 mg/dL; Lantus 15 units if blood sugar 140-180 mg/dL; Lantus 20 units if blood sugar greater than 180 mg/dL ) Start correction factor of 15 mg/dl/unit at bedtime Start carb ratio of 1 unit per 5 grams CHO consumed (include fixed carbohydrate ratio while patient is on infusion) Start goal range of Low 110 mg/dL - High 140 mg/dL once infusion is discontinued VICTORINO on CKD III: -Cr of 2.1 on initial lab work -Baseline GFR >30, currently 20 -renally dose medications Transaminitis: -AST, ALT slightly elevated at 82 and 80 on admission, will trend LFTs HTN: -continue home dose amlodipine 5 mg Severe dementia and anxiety history -reorient patient as needed Hypothyroidism: -continue home dose Levothyroxine 75 mcg daily, check TFTs Blepharitis: -Continue home Ciprofloxacin eye drops DVT Ppx: heparin Code status: DNR, per paperwork sent by [facility] PCP: Tejal Dispo: Plan to return to [facility] once medically stable for discharge Vital Signs: Date Time Temp Pulse Resp B/P (MAP) Pulse Ox O2 Delivery O2 Flow Rate FiO2 01/16/17 16:49 36.8 82 18 129/66 (87) 94 Room Air 01/16/17 15:21 75 16 96 Room Air 01/16/17 09:31 Room Air 01/16/17 08:07 36.4 90 18 159/75 (103) 94 Room Air 01/16/17 08:00 94 Room Air 01/16/17 07:06 75 16 93 Room Air 01/16/17 03:25 75 16 93 Room Air 01/16/17 01:38 Room Air 01/16/17 00:20 83 14 93 Room Air 01/16/17 00:00 36.5 83 20 132/54 (80) 93 Room Air 01/15/17 20:35 37.0 82 20 146/76 (99) 96 Room Air 01/15/17 20:10 37.3 85 15 186/79 97 01/15/17 20:03 97 Room Air 01/15/17 19:32 186/79 01/15/17 19:16 85 15 01/15/17 19:11 88 22 01/15/17 19:01 196/80 01/15/17 18:41 91 16 01/15/17 18:36 92 23 01/15/17 18:32 180/81 01/15/17 18:06 87 15 01/15/17 18:01 170/84 01/15/17 18:00 187/81 01/15/17 17:55 83 16 97 Lab Results: Results Past 24 Hours Test 01/15/17 18:11 01/15/17 20:53 01/15/17 21:51 01/15/17 22:30 Range/Units Bedside Lactic Acid Venous 1.11 0.90-1.70 mmol/L Bedside Glucose 187 230 70-90 mg/dl Prothrombin Time 10.9 9.0-12.0 SECONDS Prothromb Time International Ratio 1.0 0.9-1.1 Troponin I 0.017 0-0.045 ng/ml Test 01/16/17 00:50 01/16/17 01:52 01/16/17 02:55 01/16/17 03:55 Range/Units Bedside Glucose 267 246 230 239 70-90 mg/dl White Blood Count 8.47 4.8-10.8 K/uL Red Blood Count 4.67 4.2-5.4 M/uL Hemoglobin 12.5 12.0-16.0 g/dL Hematocrit 39.5 37-47 % Mean Corpuscular Volume 84.6 80-100 fL Mean Corpuscular Hemoglobin 26.8 25-34 pg Mean Corpuscular Hemoglobin Concent 31.6 32-36 g/dl RDW Standard Deviation 49.7 36.4-46.3 fL RDW Coefficient of Variation 16.2 11.5-14.5 % Platelet Count 300 130-400 K/uL Mean Platelet Volume 9.6 7.4-10.4 fL Estimated Average Glucose 183 mg/dl Hemoglobin A1c 8.0 4.5-5.6 % Troponin I 0.022 0-0.045 ng/ml Test 01/16/17 04:57 01/16/17 05:58 01/16/17 06:44 01/16/17 07:35 Range/Units Bedside Glucose 232 234 200 202 70-90 mg/dl Test 01/16/17 08:06 01/16/17 09:08 01/16/17 09:46 01/16/17 10:06 Range/Units Bedside Glucose 191 315 296 70-90 mg/dl Random Glucose 328 70-99 mg/dl Beta-Hydroxybutyric Acid 1.60 0.2-2.81 mg/dL Test 01/16/17 11:11 01/16/17 12:02 01/16/17 13:03 01/16/17 13:40 Range/Units Bedside Glucose 233 229 192 70-90 mg/dl Urine Color YELLOW Urine Appearance CLEAR CLEAR Urine pH 5.5 4.5-7.5 Urine Specific [place] 1.022 1.000-1.030 Urine Protein 1+ NEG Urine Glucose (UA) TRACE NEG Urine Ketones NEG NEG Urine Occult Blood NEG NEG Urine Nitrite POS NEG Urine Bilirubin NEG NEG Urine Urobilinogen NEG NEG Urine Leukocyte Esterase SMALL NEG Urine WBC (Auto) 10-30 0-5 /hpf Urine RBC (Auto) 0-4 0-4 /hpf Urine Hyaline Casts (Auto) 1-5 0-5 /lpf Urine Epithelial Cells (Auto) 0-5 0-5 /lpf Urine Bacteria (Auto) 4+ NEG Test 01/16/17 14:05 01/16/17 15:00 01/16/17 16:06 01/16/17 17:02 Range/Units Bedside Glucose 170 141 153 70-90 mg/dl Sodium Level 141 136-145 mmol/L Potassium Level 4.5 3.5-5.1 mmol/L Chloride Level 109 98-107 mmol/L Carbon Dioxide Level 26 21-32 mmol/L Anion Gap 6.0 3-11 mmol/L Blood Urea Nitrogen 35 7-18 mg/dl Creatinine 1.50 0.60-1.20 mg/dl Est Creatinine Clear Calc Drug Dose 27.9 ml/min Estimated GFR () 35.7 Estimated GFR (Non- 30.8 BUN/Creatinine Ratio 23.3 10-20 Random Glucose 126 70-99 mg/dl Calcium Level 9.1 8.5-10.1 mg/dl Test 01/16/17 17:07 Range/Units Bedside Glucose 121 70-90 mg/dl Microbiology Results 01/15/17 Blood Culture - Preliminary, Resulted Gram Positive Cocci 01/15/17 Blood Culture - Preliminary, Resulted Gram Positive Cocci
[2017-01-16] MEDS: GUAIFENESIN SUGAR FREE 100 MG/5 ML UDC PO PRN (18:13)
[2017-01-16] MEDS ORDERED: VANCOMYCIN CONSULT ACTIVE PRN (18:45)
[2017-01-16] MEDS ORDERED: VANCOMYCIN INJ 1,750 MG in SODIUM CHLORIDE 0.9% 500ML 500 ML IV ONE (19:00)
[2017-01-16] MEDS: DOCUSATE SODIUM/SENNA 50/8.6MG TAB PO SCH (20:16)
[2017-01-16] MEDS: MIRTAZAPINE TAB 15 MG TAB PO SCH (20:16)
[2017-01-16] MEDS: ACETAMINOPHEN 325 MG TAB PO PRN (20:21)
[2017-01-16] MEDS ORDERED: INSULIN GLARGINE SOLOSTAR 100 UNITS/ML 3 ML PEN SC SCH (21:00)
--- NOTE | 2017-01-16 21:04 | Pharmacy Progress Note ---
Pharmacy Abx Initial Consult Date of Service Jan 16, 2017. Pharmacy Dosing Scope Date of Consult: 01/16/17 Consultation requested by: Dr. Padron Pharmacy is consulted to initiate Vancomycin IV/PO dosing therapy, order appropriate labs and adjust drug dose/frequency. Subjective The patient is a 87 year old female admitted on Jan 15, 2017 at 19:46. Objective Height (Feet): 5 Height (Inches): 5.00 Weight (Kilograms): 85.000 Vital Signs (Past 12Hrs) Vital Signs Past 12 Hours Date Time Temp Pulse Resp B/P (MAP) Pulse Ox O2 Delivery O2 Flow Rate FiO2 01/16/17 19:19 80 16 94 Room Air 01/16/17 16:49 36.8 82 18 129/66 (87) 94 Room Air 01/16/17 16:00 96 Room Air 01/16/17 15:21 75 16 96 Room Air 01/16/17 09:31 Room Air Lab Results (24Hrs) Laboratory Tests (24 Hours) Test 01/16/17 03:55 White Blood Count 8.47 K/uL (4.8-10.8) Micro Results Date/Time Source Procedure Growth Status 01/15/17 18:05 Blood Blood Culture - Preliminary Gram Positive Cocci Resulted 01/15/17 18:00 Blood Blood Culture - Preliminary Gram Positive Cocci Resulted Assessment & Plan Assessment 87 year old female being treated with Levaquin for pneumonia. Pharmacy consulted to initiate Vancomycin IV on 96 pm due to 2/2 BC growing GPC. Plan Vancomycin IV for treatment of gram positive bacteremia. Vancomycin IV * Loading dose: 1750 mg (20 mg/kg) * Maintenance dose: 1250 mg IV (14.7 mg/kg) every 24 hours * dosing interval will require adjustment if renal function continues to improve * Goal trough level for bacteremia : 15 to 20 mcg/mL * Will hold off on ordering trough level until Scr available on 9/7 am. Scr improving (2.1 -> 1.5 mg/dL). Baseline unknown - no previous admissions to [facility]. Levaquin - continue 500 mg IV every 48 hours for CrCl 20-49 ml/min Pharmacy will continue to follow and will adjust dose/frequency as necessary. Thank you.
[2017-01-17] VITALS (9 sets, daily range): BP systolic 130–168; BP diastolic 66–70; PULSE 64–82; TEMP 36.4–37; O2SAT 91–97
[2017-01-17] MEDS: ALBUT/IPRATROP 3MG/0.5MG NEB 3 ML VIAL INH SCH ×3 (03:17→11:08)
[2017-01-17] MEDS: INSULIN ASPART 100 UNITS/ML 3 ML PEN SC SCH ×6 (03:59→20:22)
[2017-01-17] MEDS: LEVOTHYROXINE 75 MCG TAB PO SCH (06:19)
[2017-01-17 06:38] LABS: BASO % 0.1 %; BASO ABS # 0.01 K/uL (0-0.2); COMPLETE YES; EOS % 0.2 %; HEMATOCRIT 39.2 % (37-47); LYMPH % 17.8 %; LYMPH ABS # 2.65 K/uL (1.2-3.4); MEAN CELL VOLUME 84.5 fL (80-100); MEAN CORPUSCULAR HEMOGLOBIN 27.2 pg (25-34); MEAN CORPUSCULAR HGB CONC 32.1 g/dl (32-36); MEAN PLATELET VOLUME 9.8 fL (7.4-10.4); MONO % 4.4 %; NEUT % 76.5 %; PLATELET COUNT 325 K/uL (130-400); RED BLOOD COUNT 4.64 M/uL (4.2-5.4); WHITE BLOOD COUNT 14.92 K/uL (4.8-10.8)
[2017-01-17 07:10] LABS: BUN/CREATININE RATIO 25.1 (10-20); CALCIUM 9.2 mg/dl (8.5-10.1); CREATININE 1.5 mg/dl (0.60-1.20); POTASSIUM 4.4 mmol/L (3.5-5.1)
[2017-01-17 07:20] LABS: ALB/GLOB RATIO 0.7 (0.9-2); THYROID STIMULATING HORMONE 0.157 uIu/ml (0.300-4.500)
[2017-01-17] MEDS: PANTOprazole SOD 40 MG TAB PO SCH (08:21)
[2017-01-17] MEDS: ALLOPURINOL 100 MG TAB PO SCH (08:21)
[2017-01-17] MEDS: ASPIRIN 81 MG ECTAB PO SCH (08:21)
[2017-01-17] MEDS: POTASSIUM CHLORIDE 10 MEQ TABCR PO SCH (08:21)
[2017-01-17] MEDS: AMLODIPINE BESYLATE 5 MG TAB PO SCH (08:21)
[2017-01-17] MEDS: NYSTATIN OINT 15 GM TUBE EXT SCH ×2 (08:22→20:27)
[2017-01-17] MEDS: CIPROFLOXACIN HCL 0.3% OP SOLN 2.5 ML BTL OPB SCH ×2 (08:22→20:28)
[2017-01-17] MEDS: MULTIVITAMIN TAB PO SCH (08:22)
[2017-01-17] MEDS: PREGABALIN 75 MG CAP PO SCH ×2 (08:24→20:52)
[2017-01-17] MEDS: INSULIN GLARGINE SOLOSTAR 100 UNITS/ML 3 ML PEN SC SCH ×2 (08:26→20:37)
[2017-01-17] MEDS: HEPARIN SOD 5000 UNIT/0.5 ML CARP SQ SCH ×2 (08:27→20:38)
[2017-01-17] MEDS: LEVOFLOXACIN 500MG / D5W IV SCH (09:33)
--- NOTE | 2017-01-17 10:36 | ECHOCARDIOGRAM REPORT ---
*NOTICE TO RECEIVING LIBERTARIAN AGENCY This information is strictly Confidential and protected under [place] law. [place] law prohibits you from making any further disclosure of this information unless further disclosure is expressly permitted by the written consent of the person to whom it pertains or is authorized by law. A general authorization for the release of medical or other information is not sufficient for this purpose. Hospital accepts no responsibility if the information is made available to any other person, INCLUDING THE PATIENT. Interpretation Summary * Name: JEANETTE RAMOS Study Date: 01/16/2017 03:03 PM BP: 159/75 mmHg * Patient Location: .[id number]\1 HR: 75 * : 1930 (M/d/yyyy) Gender: Female Height: 66 in * Age: 87 yrs Ethnicity: [place] Weight: 187 lb * Ordering Physician: Nicole Danielle * Referring Physician: Lisy Toure * Performed By: Ani Rai RCS * * Reason For Study: CHF * BSA: 1.9 m2 * -- Conclusions -- * Normal LV chamber size with mild concentric LVH. * Normal LV systolic function, EF 60-65%. * No segmental left ventricular wall motion abnormalities are noted. * Grade II diastolic dysfunction. * There is severe mitral annular calcification. There is no mitral regurgitation noted. There is no mitral valve stenosis. * Mild left atrial enlargement. Procedure Details * A complete two-dimensional transthoracic echocardiogram was performed (2D, M-mode, Doppler and color flow Doppler). Left Ventricle * The left ventricle is normal in size. * There is mild concentric left ventricular hypertrophy. * Ejection Fraction = 60-65%. * Left ventricular systolic function is normal. * No segmental left ventricular wall motion abnormalities are noted. * The left ventricular wall motion is normal. Right Ventricle * The right ventricular cavity size is normal (basal dimension <4.2 cm in right ventricular apical 4-chamber view). * The right ventricular systolic function is normal as assessed by tricuspid annular plane systolic excursion (TAPSE) (normal >1.5 cm). Atria * The left atrium is mildly dilated. * Right atrial size is normal. * No ASD detected; PFO is not assessed. Mitral Valve * There is severe mitral annular calcification. * There is no mitral valve stenosis. * There is no mitral regurgitation noted. Tricuspid Valve * The tricuspid valve is normal in structure and function. Aortic Valve * The aortic valve is not well visualized. * No hemodynamically significant valvular aortic stenosis. * Mild aortic regurgitation. Pulmonic Valve * The pulmonary valve is not well seen, but the Doppler examination is normal without significant regurgitation or stenosis. Great Vessels * The aortic root and proximal ascending aorta are normal sized. Pericardium/Pleural * There is no pericardial effusion. Left Ventricular Diastolic Function * Diastolic dysfunction, Grade II (pseudonormalization pattern). MMode 2D Measurements and Calculations IVSd 1.2 cm IVSs 1.5 cm LVIDd 2.5 cm LVIDs 1.8 cm LVPWd 1.1 cm LVPWs 1.5 cm IVS/LVPW 1.1 FS 26.6 % EDV(Teich) 22.0 ml ESV(Teich) 10.1 ml EF(Teich) 54.3 % EDV(cubed) 15.4 ml ESV(cubed) 6.1 ml EF(cubed) 60.5 % % IVS thick 25.8 % % LVPW thick 41.4 % LV mass(C)d 78.0 grams LV mass(C)dI 40.1 grams/m\S\2 LV mass(C)s 91.3 grams LV mass(C)sI 47.0 grams/m\S\2 SV(Teich) 12.0 ml SI(Teich) 6.2 ml/m\S\2 SV(cubed) 9.3 ml SI(cubed) 4.8 ml/m\S\2 Ao root diam 3.5 cm Ao root area 9.6 cm\S\2 ACS 2.0 cm LA dimension 4.1 cm asc Aorta Diam 3.2 cm LA/Ao 1.2 LVAd ap4 26.5 cm\S\2 LVLd ap4 7.9 cm EDV(MOD-sp4) 69.9 ml EDV(sp4-el) 75.9 ml LVAs ap4 13.7 cm\S\2 LVLs ap4 5.8 cm ESV(MOD-sp4) 28.9 ml ESV(sp4-el) 27.7 ml EF(MOD-sp4) 58.6 % EF(sp4-el) 63.4 % LVAd ap2 30.5 cm\S\2 LVLd ap2 8.0 cm EDV(MOD-sp2) 95.8 ml EDV(sp2-el) 99.2 ml LVAs ap2 17.7 cm\S\2 LVLs ap2 6.6 cm ESV(MOD-sp2) 41.0 ml ESV(sp2-el) 40.5 ml EF(MOD-sp2) 57.2 % EF(sp2-el) 59.2 % LVLd %diff 0.81 % EDV(MOD-bp) 83.0 ml LVLs %diff 12.2 % ESV(MOD-bp) 35.7 ml EF(MOD-bp) 57.0 % SV(MOD-sp4) 41.0 ml SI(MOD-sp4) 21.1 ml/m\S\2 SV(MOD-sp2) 54.8 ml SI(MOD-sp2) 28.2 ml/m\S\2 SV(MOD-bp) 47.4 ml SI(MOD-bp) 24.4 ml/m\S\2 SV(sp4-el) 48.1 ml SI(sp4-el) 24.8 ml/m\S\2 SV(sp2-el) 58.8 ml SI(sp2-el) 30.2 ml/m\S\2 Doppler Measurements and Calculations MV A max ilda 186.2 cm/sec Ao V2 max 183.8 cm/sec Ao max PG 13.5 mmHg Ao max PG (full) 7.9 mmHg AI max ilda 343.9 cm/sec AI max PG 47.3 mmHg AI dec slope 217.0 cm/sec\S\2 AI P1/2t 464.2 msec LV V1 max PG 5.6 mmHg LV V1 max 118.1 cm/sec PA V2 max 143.3 cm/sec PA max PG 8.3 mmHg TR max ilda 309.5 cm/sec
--- NOTE | 2017-01-17 10:47 | Pharmacy Progress Note ---
Glycemic Control Progress Note Date of Service Jan 17, 2017. Scope Glycemic Pharmacist consulted for glycemic control to write orders per [facility] inpatient glycemic control protocol. Objective Accuchecks BSG (last 24hrs): Test 01/16/17 11:11 01/16/17 12:02 01/16/17 13:03 01/16/17 14:05 Bedside Glucose 233 mg/dl (70-90) 229 mg/dl (70-90) 192 mg/dl (70-90) 170 mg/dl (70-90) Test 01/16/17 15:00 01/16/17 16:06 01/16/17 17:02 01/16/17 17:07 Bedside Glucose 141 mg/dl (70-90) 153 mg/dl (70-90) 121 mg/dl (70-90) Random Glucose 126 mg/dl (70-99) Test 01/16/17 19:45 01/17/17 00:15 01/17/17 03:52 01/17/17 06:13 Bedside Glucose 167 mg/dl (70-90) 128 mg/dl (70-90) 117 mg/dl (70-90) Random Glucose 111 mg/dl (70-99) Test 01/17/17 07:31 Bedside Glucose 108 mg/dl (70-90) HbA1c: Test 01/16/17 03:55 Hemoglobin A1c 8.0 % (4.5-5.6) H Recent Pertinent Medications The patient is currently receiving: * Lantus 60 units SQ x 1 then Lantus 15 units last night * Correctional insulin * correction factor: 15 mg/dL/unit * carbohydrate ratio: 1 unit for every 5 grams of carbohydrates consumed Outpatient Anti-Diabetic Meds Lantus 44 units SQ BID Novolog 8 units with breakfast, 12 units with lunch, and 4 units with dinner Assessment & Plan ASSESSMENT: * See progress note from 01/16/17 for more background info, in short: * Pt receiving SQ basal bolus insulin regimen for hyperglycemia secondary to baseline DM (outpatient regimen on hold),infection (PNA), and steroids ( currently receiving Solu-Medrol 60 mg IV [id number] discontinued yesterday received 3 doses) * Patient is currently receiving an average of 112 units of insulin per day (on insulin infusion requiring around 70 units per day if projected) * 75 units of basal insulin * 39 units of prandial/correctional insulin * BSGs ranging 108 - 296 mg/dl over the past 24hrs * Changes needed to insulin regimen: * AM Fasting BSG = 108 mg/dl. Patient received 60 units of Lantus prior to drip discontinuation. Received an additional 15 units of Lantus in the evening. Overnight accuchecks showed blood sugars trending downwards to the fasting this morning. It appears that 60 units daily of Lantus may be too agressive, especially with steroids discontinued. Start Lantus 20 units BID (half of what patient received as an outpatient). * Post-prandial BSGs trended downwards at this time. Loosened parameters to slightly looser than weight-based stress of 3. Reasonable with steroids discontinued * Total daily dose = Perhaps around 70-80 units PLAN FOR INPATIENT GLYCEMIC CONTROL: * Lantus 20 units SQ BID * LOOSEN correction factor to 20 mg/dl/unit * LOOSEN carb ratio to 1 unit per 7 grams CHO consumed * Continue goal range of Low 110 mg/dL - High 140 mg/dL * Please note that the plan above was derived based on current level of insulin resistance and hospital stress. These recommendations are appropriate for inpatient admission only. Plan of care upon discharge will need to be reassessed to avoid potential outpatient hypo/hyperglycemia. Thank you.
[2017-01-17] MEDS: GUAIFENESIN SUGAR FREE 100 MG/5 ML UDC PO PRN ×2 (10:52→17:29)
[2017-01-17] MEDS: IPRATROPIUM BROMIDE/ALBUTEROL respimat INH INH SCH ×3 (13:00→20:41)
--- NOTE | 2017-01-17 18:09 | Progress Note ---
Internal Med Progress Note Date of Service: Jan 17, 2017. Provider Documentation: SUBJECTIVE: patient reporting generalized malaise of feeling tired and continues to have cough. denies chest pain or abdominal pain. no complaints of problems with urination or bowel movements OBJECTIVE: Exam: General- awake and alert, able to speak in full sentences Eyes- some erythema of eyelids, no discharges from eyes, ENT- no nasal or oral discharges Neck- nontender Lungs- patient coughing when asked to take deep breaths on lung auscultation Heart- regular heart rate, chest nontender Abdomen- soft, nontender, + bowel sounds Extremities- no acute findings Neuro-no focal neurological deficits Lab data as noted below. ASSESSMENT & PLAN: Patient is an 86yo female with a PMH of DM II (on insulin), HTN, chronic diastolic HF, hypothyroidism and severe dementia, with pre-admission history of bacterial PNA on 01/10 on Levaquin who [facility] and was found to be hypoglycemic. Patient subsequently received D50 and IV solumedrol. Patient then had glucose levels above 200s and then over 300s and was then started on insulin drip for careful glycemic control. Patient from admission 01/15/17 was started on IV Levaquin renally dosed for pneumonia vs bronchitis. However, blood culture from admission resulting in gram positive cocci in clusters as staph species awaiting antibiotic sensitivities Respiratory: -CXR on 01/15/17: Bipolar cardiac pacemaker in good position. Mild atelectasis left base and right suprahilar region. Lungs otherwise appear clear. -continue Levaquin renally dosed IV and add Vancomycin renally dosed for coverage staph species in case this is MRSA -first dose Vanc on 01/16/17, second dose Vanc on 01/17/17, will get 3rd dose Vanc on 01/18/17, will need vanc trough before 4th dose -on PO prednisone Compensated diastolic HF: DM II (on insulin): -pharmacy diabetic consult following patient on glucose control VICTORINO on CKD III: -Cr of 2.1 on admission lab work now downtrending Transaminitis: -AST, ALT slightly elevated at 82 and 80 on admission, now downtrending HTN: -continue home dose amlodipine 5 mg Severe dementia and anxiety history -reorient patient as needed Hypothyroidism: -had been on home dose Levothyroxine 75 mcg daily but TSH 0.157 low and T4 8.4 is suggestive of hyperthyroidism vs overuse of levothyroxine -hold levothyroxine for now Blepharitis: -Continue home Ciprofloxacin eye drops DVT Ppx: heparin Code status: DNR, per paperwork sent by [facility] PCP: Tejal Dispo: Plan to return to [facility] once medically stable for discharge Vital Signs: Date Time Temp Pulse Resp B/P (MAP) Pulse Ox O2 Delivery O2 Flow Rate FiO2 01/17/17 16:00 94 Room Air 01/17/17 14:51 36.6 77 18 130/67 (88) 94 Room Air 01/17/17 11:08 82 16 95 Room Air 01/17/17 11:02 36.8 71 18 133/70 (91) 97 Room Air 01/17/17 08:00 94 Room Air 01/17/17 07:11 36.4 75 18 168/66 (100) 96 Room Air 01/17/17 07:11 64 14 94 Room Air 01/17/17 03:17 64 14 91 Room Air 01/17/17 00:00 Room Air 01/16/17 23:40 36.7 81 16 149/69 (95) 96 Room Air 01/16/17 23:04 83 16 95 Room Air 01/16/17 22:12 96 Room Air 01/16/17 19:19 80 16 94 Room Air Lab Results: Results Past 24 Hours Test 01/16/17 19:45 01/17/17 00:15 01/17/17 03:52 01/17/17 06:13 Range/Units Bedside Glucose 167 128 117 70-90 mg/dl White Blood Count 14.92 4.8-10.8 K/uL Red Blood Count 4.64 4.2-5.4 M/uL Hemoglobin 12.6 12.0-16.0 g/dL Hematocrit 39.2 37-47 % Mean Corpuscular Volume 84.5 80-100 fL Mean Corpuscular Hemoglobin 27.2 25-34 pg Mean Corpuscular Hemoglobin Concent 32.1 32-36 g/dl Platelet Count 325 130-400 K/uL Mean Platelet Volume 9.8 7.4-10.4 fL Neutrophils (%) (Auto) 76.5 % Lymphocytes (%) (Auto) 17.8 % Monocytes (%) (Auto) 4.4 % Eosinophils (%) (Auto) 0.2 % Basophils (%) (Auto) 0.1 % Neutrophils # (Auto) 11.42 1.4-6.5 K/uL Lymphocytes # (Auto) 2.65 1.2-3.4 K/uL Monocytes # (Auto) 0.66 0.11-0.59 K/uL Eosinophils # (Auto) 0.03 0-0.5 K/uL Basophils # (Auto) 0.01 0-0.2 K/uL RDW Standard Deviation 51.0 36.4-46.3 fL RDW Coefficient of Variation 16.6 11.5-14.5 % Immature Granulocyte % (Auto) 1.0 % Immature Granulocyte # (Auto) 0.15 0.00-0.02 K/uL Sodium Level 143 136-145 mmol/L Potassium Level 4.4 3.5-5.1 mmol/L Chloride Level 109 98-107 mmol/L Carbon Dioxide Level 29 21-32 mmol/L Anion Gap 5.0 3-11 mmol/L Blood Urea Nitrogen 38 7-18 mg/dl Creatinine 1.50 0.60-1.20 mg/dl Est Creatinine Clear Calc Drug Dose 27.9 ml/min Estimated GFR () 35.7 Estimated GFR (Non- 30.8 BUN/Creatinine Ratio 25.1 10-20 Random Glucose 111 70-99 mg/dl Calcium Level 9.2 8.5-10.1 mg/dl Total Bilirubin 0.3 0.2-1 mg/dl Aspartate Amino Transf (AST/SGOT) 43 15-37 U/L Alanine Aminotransferase (ALT/SGPT) 59 12-78 U/L Alkaline Phosphatase 63 45-117 U/L Pro-B-Type Natriuretic Peptide 627 0-1800 pg/ml Total Protein 6.3 6.4-8.2 gm/dl Albumin 2.6 3.4-5.0 gm/dl Globulin 3.7 2.5-4.0 gm/dl Albumin/Globulin Ratio 0.7 0.9-2 Thyroid Stimulating Hormone (TSH) 0.157 0.300-4.500 uIu/ml Test 01/17/17 07:31 01/17/17 11:19 01/17/17 14:28 01/17/17 16:22 Range/Units Bedside Glucose 108 149 135 70-90 mg/dl Thyroxine (T4) 8.4 4.5-10.9 mcg/dl Random Vancomycin Level 12.8 mcg/ml
[2017-01-17] MEDS: VANCOMYCIN INJ 1,250 MG in SODIUM CHLORIDE 0.9% 250ML 250 ML IV SCH (18:18)
[2017-01-17] MEDS: MIRTAZAPINE TAB 15 MG TAB PO SCH (20:28)
[2017-01-17] MEDS: DOCUSATE SODIUM/SENNA 50/8.6MG TAB PO SCH (20:29)
[2017-01-17] MEDS ORDERED: LEVALBUTEROL/IPRATROPIUM NEB INH SCH (21:45)
[2017-01-17] MEDS ORDERED: IPRATROPIUM BROMIDE NEB SOLN 0.02% 2.5 ML VIAL INH STA (22:00)
[2017-01-17] MEDS ORDERED: LEVALBUTEROL 1.25MG/0.5ML NEB INH STA (22:01)
[2017-01-17] MEDS ORDERED: METHYLPREDNISOLONE IV 60 MG in SYRINGE 0 ML IV STA (22:03)
[2017-01-18] VITALS (9 sets, daily range): BP systolic 106–172; BP diastolic 64–76; PULSE 72–82; TEMP 36.7–37; O2SAT 92–97
[2017-01-18] MEDS: IPRATROPIUM BROMIDE NEB SOLN 0.02% 2.5 ML VIAL INH SCH ×4 (01:40→19:11)
[2017-01-18] MEDS: LEVALBUTEROL 1.25MG/0.5ML NEB INH SCH ×4 (01:40→19:11)
[2017-01-18] MEDS ORDERED: LEVALBUTEROL/IPRATROPIUM NEB INH SCH (03:00)
[2017-01-18 07:28] LABS: BASO % 0.1 %; BASO ABS # 0.01 K/uL (0-0.2); COMPLETE YES; EOS % 0.1 %; HEMATOCRIT 40.9 % (37-47); IG% 1.3 %; LYMPH % 9.6 %; MEAN CELL VOLUME 84.3 fL (80-100); MEAN CORPUSCULAR HEMOGLOBIN 26.4 pg (25-34); MEAN CORPUSCULAR HGB CONC 31.3 g/dl (32-36); MEAN PLATELET VOLUME 9.8 fL (7.4-10.4); MONO % 1.2 %; NEUT % 87.7 %; PLATELET COUNT 346 K/uL (130-400); RED BLOOD COUNT 4.85 M/uL (4.2-5.4); WHITE BLOOD COUNT 10.38 K/uL (4.8-10.8)
[2017-01-18 08:00] LABS: BUN/CREATININE RATIO 24.2 (10-20); CREATININE 1.7 mg/dl (0.60-1.20); POTASSIUM 5.2 mmol/L (3.5-5.1)
[2017-01-18 08:04] LABS: ALB/GLOB RATIO 0.7 (0.9-2)
[2017-01-18] MEDS: INSULIN ASPART 100 UNITS/ML 3 ML PEN SC SCH ×4 (08:49→21:57)
[2017-01-18] MEDS: NYSTATIN OINT 15 GM TUBE EXT SCH ×2 (08:52→21:33)
[2017-01-18] MEDS: CIPROFLOXACIN HCL 0.3% OP SOLN 2.5 ML BTL OPB SCH ×2 (08:52→21:34)
[2017-01-18] MEDS: PANTOprazole SOD 40 MG TAB PO SCH (08:55)
[2017-01-18] MEDS: AMLODIPINE BESYLATE 5 MG TAB PO SCH (08:56)
[2017-01-18] MEDS: ASPIRIN 81 MG ECTAB PO SCH (08:56)
[2017-01-18] MEDS: MULTIVITAMIN TAB PO SCH (08:56)
[2017-01-18] MEDS: ALLOPURINOL 100 MG TAB PO SCH (08:56)
[2017-01-18] MEDS: HEPARIN SOD 5000 UNIT/0.5 ML CARP SQ SCH ×2 (08:59→21:57)
[2017-01-18] MEDS ORDERED: INSULIN GLARGINE SOLOSTAR 100 UNITS/ML 3 ML PEN SC SCH (09:00)
[2017-01-18] MEDS: PREGABALIN 75 MG CAP PO SCH ×2 (09:02→21:37)
[2017-01-18] MEDS ORDERED: SODIUM POLYST. SULF SUSP 15G/60ML PO ONE (11:30)
--- NOTE | 2017-01-18 12:08 | DIAGNOSTIC IMAGING REPORT ---
CHEST ONE VIEW PORTABLE HISTORY: 87 years-old Female pneumonia vs chf acute pneumonia with cough. COMPARISON: Chest radiograph 01/15/2017 TECHNIQUE: Portable upright AP view of the chest FINDINGS: Cardiac silhouette is again mildly enlarged. There is atherosclerosis of the aorta. Left subclavian pacer is again noted with leads intact. No pneumothorax or pleural effusion. Left greater than right subsegmental bibasilar and left perihilar atelectasis is again seen. There is no pneumothorax, large pleural effusion, or overt pulmonary edema. The bones are grossly intact. IMPRESSION: Unchanged subsegmental linear bibasilar opacities, left greater than right suggests atelectasis. Superimposed pneumonia would be difficult to exclude. The above report was generated using voice recognition software. It may contain grammatical, syntax or spelling errors. Electronically signed by: Bakari Oneil M.D. 01/18/2017 12:07 PM Dictated Date/Time: 01/18/2017 11:48 AM
--- NOTE | 2017-01-18 13:19 | Pharmacy Progress Note ---
Glycemic Control Progress Note Date of Service Jan 18, 2017. Scope Glycemic Pharmacist consulted for glycemic control to write orders per [facility] inpatient glycemic control protocol. Objective Accuchecks BSG (last 24hrs): Test 01/17/17 16:22 01/17/17 20:21 01/18/17 07:17 01/18/17 07:30 Bedside Glucose 135 mg/dl (70-90) 105 mg/dl (70-90) 234 mg/dl (70-90) Random Glucose 261 mg/dl (70-99) Test 01/18/17 11:17 Bedside Glucose 216 mg/dl (70-90) HbA1c: Test 01/16/17 03:55 Hemoglobin A1c 8.0 % (4.5-5.6) H Recent Pertinent Medications The patient is currently receiving: * Basal insulin: Lantus 20 units every 12 hours * Correctional Insulin: Novolog Correction per scale ACHS Goal Range: Low 110 mg/dL - High 140 mg/dL Correction Factor: 20 mg/dL/unit * Prandial insulin: Per carb ratio of 1 unit per 7 grams CHO consumed Assessment & Plan ASSESSMENT: * See progress note from 01/17 for more background info, in short: * Pt receiving SQ basal bolus insulin regimen for hyperglycemia secondary to baseline DM (outpatient regimen on hold),stress/infection, steroids * Patient is currently receiving an average of 60 units of insulin per day * BSGs ranging 105 - 261 mg/dl over the past 24hrs * Patient's BSGs spiked this AM due to a one time dose of IV Solu-medrol last night. No additional steroid orders at this time. * Changes needed to insulin regimen: * AM fasting elevated - will increase Lantus and then give a "sliding scale" order for the Lantus dose tonight based upon the BSG * Postprandial BSGs elevated from the steroid dose as well - will tighten the CR for today only and go back to 7 tomorrow PLAN FOR INPATIENT GLYCEMIC CONTROL: * Increase Lantus to 25 units BID (give 20 units for BSG < 180) * TIGHTEN CR to 1 unit per 6 gm CHO, loosen back to 1 unit per 7 gm starting tomorrow AM * Please note that the plan above was derived based on current level of insulin resistance and hospital stress. These recommendations are appropriate for inpatient admission only. Plan of care upon discharge will need to be reassessed to avoid potential outpatient hypo/hyperglycemia. Thank you.
[2017-01-18] MEDS ORDERED: FUROSEMIDE INJ 40 MG in SYRINGE 0 ML IV ONE (16:30)
--- NOTE | 2017-01-18 16:50 | Progress Note ---
Internal Med Progress Note Date of Service: Jan 18, 2017. Provider Documentation: SUBJECTIVE: was given a dose of solumedrol and nebulizer treatmentsby overnight hospitalist who heard wheezing on exam. patient reports of continuing to have cough. denies chest pain or abdominal pain. denies problems with urination or bowel movements. reports pain of lower extremities bilaterally OBJECTIVE: Exam: General- awake and alert, able to speak in full sentences Eyes- some erythema of eyelids, no discharges from eyes, ENT- no nasal or oral discharges Neck- nontender Lungs- patient coughing when asked to take deep breaths on lung auscultation, no wheezing appreciated Heart- regular heart rate, chest nontender Abdomen- soft, nontender, + bowel sounds Extremities- 1+ bilateral lower extremity edema Neuro-no focal neurological deficits Lab data as noted below. ASSESSMENT & PLAN: Patient is an 86yo female with a PMH of DM II (on insulin), HTN, chronic diastolic HF, hypothyroidism and severe dementia, with pre-admission history of bacterial PNA on 01/10 on Levaquin who presents to the ED from [facility] for cough and dyspnea and was found to be hypoglycemic. Patient subsequently received D50 and IV solumedrol. Patient then had glucose levels above 200s and then over 300s and was then started on insulin drip for careful glycemic control. Patient from admission 01/15/17 was started on IV Levaquin renally dosed for pneumonia vs bronchitis. However, blood culture from admission resulting in gram positive cocci in clusters as staph species awaiting antibiotic sensitivities Respiratory: -coughing -CXR on 01/15/17: Bipolar cardiac pacemaker in good position. Mild atelectasis left base and right suprahilar region. Lungs otherwise appear clear. -CXR on 01/18/2017: Unchanged subsegmental linear bibasilar opacities, left greater than right suggests atelectasis -continue Levaquin renally dosed IV -Vancomycin renally dosed for coverage staph species in case this is MRSA: first dose Vanc on 01/16/17, second dose Vanc on 01/17/17, will get 3rd dose Vanc on 01/18/17, will need vanc trough before 4th dose -was given a dose of solumedrol and nebulizer treatments by overnight hospitalist who heard wheezing on exam Cardiac -Diastolic dysfunction Grade II, EF EF 60-65% on TTE 01/18/2017 -pro-BNP 701 on 01/18/17 -bilateral lower extremity edema -Lasix 40 mg IV ordered x 1 today Renal/Electrolytes -VICTORINO on CKD: -Creatinine trended up from 1.5 to 1.7 today -Vanc trough due tomorrow on 01/19/2017 -hyperkalemia on morning labs on 01/18/17, Kayexalate given, follow up repeat serum potassium level after lasix today DM II (on insulin): -pharmacy diabetic consult following patient on glucose control -has been on steroids for respiratory issues Transaminitis: -AST, ALT slightly elevated at 82 and 80 on admission, now downtrending HTN: -continue home dose amlodipine 5 mg Severe dementia and anxiety history -re-orient patient as needed Hypothyroidism: -had been on home dose Levothyroxine 75 mcg daily but TSH 0.157 low and T4 8.4 is suggestive of hyperthyroidism vs overuse of levothyroxine -hold levothyroxine for now Blepharitis: -Continue home Ciprofloxacin eye drops DVT Ppx: heparin Code status: DNR, per paperwork sent by [facility] PCP: Tejal Dispo: Plan to return to [facility] once medically stable for discharge Vital Signs: Date Time Temp Pulse Resp B/P (MAP) Pulse Ox O2 Delivery O2 Flow Rate FiO2 01/18/17 14:41 37.0 78 20 106/64 (78) 94 Room Air 01/18/17 09:48 97 Room Air 01/18/17 09:29 36.8 72 18 172/70 (104) 97 Room Air 01/18/17 08:00 94 Room Air 01/18/17 07:19 36.7 74 20 161/76 (104) 94 Room Air 01/18/17 07:14 78 16 95 Room Air 01/18/17 01:41 80 20 92 Room Air 01/18/17 00:00 Room Air 01/17/17 23:09 37.0 80 20 155/69 (97) 95 Room Air 01/17/17 22:42 78 16 95 Room Air 01/17/17 20:00 Room Air Lab Results: Results Past 24 Hours Test 01/17/17 20:21 01/18/17 07:17 01/18/17 07:30 01/18/17 11:17 Range/Units Bedside Glucose 105 234 216 70-90 mg/dl White Blood Count 10.38 4.8-10.8 K/uL Red Blood Count 4.85 4.2-5.4 M/uL Hemoglobin 12.8 12.0-16.0 g/dL Hematocrit 40.9 37-47 % Mean Corpuscular Volume 84.3 80-100 fL Mean Corpuscular Hemoglobin 26.4 25-34 pg Mean Corpuscular Hemoglobin Concent 31.3 32-36 g/dl Platelet Count 346 130-400 K/uL Mean Platelet Volume 9.8 7.4-10.4 fL Neutrophils (%) (Auto) 87.7 % Lymphocytes (%) (Auto) 9.6 % Monocytes (%) (Auto) 1.2 % Eosinophils (%) (Auto) 0.1 % Basophils (%) (Auto) 0.1 % Neutrophils # (Auto) 9.10 1.4-6.5 K/uL Lymphocytes # (Auto) 1.00 1.2-3.4 K/uL Monocytes # (Auto) 0.12 0.11-0.59 K/uL Eosinophils # (Auto) 0.01 0-0.5 K/uL Basophils # (Auto) 0.01 0-0.2 K/uL RDW Standard Deviation 50.7 36.4-46.3 fL RDW Coefficient of Variation 16.6 11.5-14.5 % Immature Granulocyte % (Auto) 1.3 % Immature Granulocyte # (Auto) 0.14 0.00-0.02 K/uL Sodium Level 140 136-145 mmol/L Potassium Level 5.2 3.5-5.1 mmol/L Chloride Level 107 98-107 mmol/L Carbon Dioxide Level 27 21-32 mmol/L Anion Gap 6.0 3-11 mmol/L Blood Urea Nitrogen 41 7-18 mg/dl Creatinine 1.70 0.60-1.20 mg/dl Est Creatinine Clear Calc Drug Dose 24.6 ml/min Estimated GFR () 30.7 Estimated GFR (Non- 26.5 BUN/Creatinine Ratio 24.2 10-20 Random Glucose 261 70-99 mg/dl Calcium Level 9.0 8.5-10.1 mg/dl Total Bilirubin 0.3 0.2-1 mg/dl Aspartate Amino Transf (AST/SGOT) 50 15-37 U/L Alanine Aminotransferase (ALT/SGPT) 74 12-78 U/L Alkaline Phosphatase 65 45-117 U/L Total Protein 6.3 6.4-8.2 gm/dl Albumin 2.5 3.4-5.0 gm/dl Globulin 3.8 2.5-4.0 gm/dl Albumin/Globulin Ratio 0.7 0.9-2 Test 01/18/17 11:39 01/18/17 13:59 01/18/17 16:02 Range/Units Pro-B-Type Natriuretic Peptide 701 0-1800 pg/ml Random Vancomycin Level 16.3 mcg/ml Bedside Glucose 145 70-90 mg/dl
[2017-01-18] MEDS: ACETAMINOPHEN 325 MG TAB PO PRN (16:54)
[2017-01-18] MEDS: VANCOMYCIN INJ 1,250 MG in SODIUM CHLORIDE 0.9% 250ML 250 ML IV SCH (18:43)
[2017-01-18 20:26] LABS: ALB/GLOB RATIO 0.7 (0.9-2); BUN/CREATININE RATIO 23.2 (10-20); CALCIUM 8.7 mg/dl (8.5-10.1); CREATININE 1.8 mg/dl (0.60-1.20)
[2017-01-18] MEDS: DOCUSATE SODIUM/SENNA 50/8.6MG TAB PO SCH (21:00)
[2017-01-18] MEDS: MIRTAZAPINE TAB 15 MG TAB PO SCH (21:37)
[2017-01-18 21:50] LABS: POTASSIUM 4.1 mmol/L (3.5-5.1)
[2017-01-18] MEDS: INSULIN GLARGINE SOLOSTAR 100 UNITS/ML 3 ML PEN SC SCH (21:56)
[2017-01-19] VITALS (7 sets, daily range): BP systolic 108–159; BP diastolic 59–71; PULSE 60–76; TEMP 36.7–37.1; O2SAT 93–100
[2017-01-19] MEDS: IPRATROPIUM BROMIDE NEB SOLN 0.02% 2.5 ML VIAL INH SCH ×4 (02:00→20:09)
[2017-01-19] MEDS: LEVALBUTEROL 1.25MG/0.5ML NEB INH SCH ×4 (02:00→20:09)
[2017-01-19 07:07] LABS: BASO % 0.3 %; BASO ABS # 0.03 K/uL (0-0.2); COMPLETE YES; EOS % 3.2 %; HEMATOCRIT 39.6 % (37-47); IG% 1.1 %; LYMPH % 34.1 %; LYMPH ABS # 3.54 K/uL (1.2-3.4); MEAN CELL VOLUME 83.5 fL (80-100); MEAN CORPUSCULAR HEMOGLOBIN 26.6 pg (25-34); MEAN CORPUSCULAR HGB CONC 31.8 g/dl (32-36); MONO % 5.1 %; NEUT % 56.2 %; PLATELET COUNT 322 K/uL (130-400); RED BLOOD COUNT 4.74 M/uL (4.2-5.4); WHITE BLOOD COUNT 10.37 K/uL (4.8-10.8)
[2017-01-19] MEDS: NYSTATIN OINT 15 GM TUBE EXT SCH ×2 (07:31→20:50)
[2017-01-19] MEDS: POTASSIUM CHLORIDE 10 MEQ TABCR PO SCH (07:32)
[2017-01-19] MEDS: CIPROFLOXACIN HCL 0.3% OP SOLN 2.5 ML BTL OPB SCH ×2 (07:32→20:51)
[2017-01-19] MEDS: AMLODIPINE BESYLATE 5 MG TAB PO SCH (07:32)
[2017-01-19] MEDS: MULTIVITAMIN TAB PO SCH (07:33)
[2017-01-19] MEDS: PREGABALIN 75 MG CAP PO SCH ×2 (07:35→20:52)
[2017-01-19 07:43] LABS: CALCIUM 8.8 mg/dl (8.5-10.1); CREATININE 1.7 mg/dl (0.60-1.20); POTASSIUM 4.1 mmol/L (3.5-5.1)
[2017-01-19 07:46] LABS: ALB/GLOB RATIO 0.6 (0.9-2)
[2017-01-19] MEDS: LEVOFLOXACIN 500MG / D5W IV SCH (08:34)
[2017-01-19] MEDS: INSULIN ASPART 100 UNITS/ML 3 ML PEN SC SCH ×4 (08:42→21:02)
[2017-01-19] MEDS: HEPARIN SOD 5000 UNIT/0.5 ML CARP SQ SCH ×2 (08:43→21:03)
[2017-01-19] MEDS: INSULIN GLARGINE SOLOSTAR 100 UNITS/ML 3 ML PEN SC SCH ×2 (08:43→21:03)
[2017-01-19] MEDS: ALLOPURINOL 100 MG TAB PO SCH (08:47)
[2017-01-19] MEDS: ASPIRIN 81 MG ECTAB PO SCH (08:47)
[2017-01-19] MEDS: PANTOprazole SOD 40 MG TAB PO SCH (08:47)
--- NOTE | 2017-01-19 13:35 | Pharmacy Progress Note ---
Glycemic: Assessment & Plan Date of Service Jan 19, 2017. Assessment & Plan The patient is currently receiving 82 units of insulin per day. BSGs ranging 145 - 210 mg/dl over the past 24hrs. * Basal insulin: 01/17 Lantus 40 units total 01/18 Lantus 45 units total * Correctional Insulin: Novolog Correction per scale ACHS Goal Range: Low 110 mg/dL - High 140 mg/dL Correction Factor: 20 mg/dL/unit * Prandial insulin: Per carb ratio of 1 unit per 7 grams CHO consumed * Risk factors for insulin resistance are decreased over the past 24hrs * No further steroid doses * Anticipating insulin regimen will need increased for the next 24hrs d/t : * AM Fasting BSG = 201 therefore Basal insulin needs increased * Total daily dose = ~100 therefore may need to evenly re-distribute regimen 50%:50% basal:prandial to prevent hypo/hyperglycemia PLAN FOR INPATIENT GLYCEMIC CONTROL: * Increase Lantus to 25 units BID * TIGHTEN CF to 15 * TIGHTEN CR to 6 Pharmacy will continue to monitor patient daily and write orders per [facility] inpatient glycemic control protocol. Thanks. * Please note that the plan above was derived based on current level of insulin resistance and hospital stress. These recommendations are appropriate for inpatient admission only. Plan of care upon discharge will need to be reassessed to avoid potential outpatient hypo/hyperglycemia.
[2017-01-19] MEDS: NAPHAZOLIN/PHENIRAMIN OPH SOLN 75 DROPS/5 ML BTL OPL SCH (15:41)
[2017-01-19] MEDS: VANCOMYCIN INJ 1,250 MG in SODIUM CHLORIDE 0.9% 250ML 250 ML IV SCH (17:25)
[2017-01-19] MEDS: MIRTAZAPINE TAB 15 MG TAB PO SCH (20:51)
[2017-01-19] MEDS: DOCUSATE SODIUM/SENNA 50/8.6MG TAB PO SCH (20:51)
--- NOTE | 2017-01-19 21:12 | Progress Note ---
Internal Med Progress Note Date of Service: Jan 19, 2017. Provider Documentation: SUBJECTIVE: patient reports of continuing to have cough. OBJECTIVE: Exam: General- awake and alert, able to speak in full sentences Eyes- erythema of eyes increased on exam today ENT- no nasal or oral discharges Neck- nontender Lungs- good air entry, lungs generally clear, no wheezing Heart- regular heart rate, chest nontender Abdomen- soft, nontender, + bowel sounds Extremities- 1+ bilateral lower extremity edema Neuro-no focal neurological deficits Lab data as noted below. ASSESSMENT & PLAN: Patient is an 86yo female with a PMH of DM II (on insulin), HTN, chronic diastolic HF, hypothyroidism and severe dementia, with pre-admission history of bacterial PNA on 01/10 on Levaquin who presents to the ED from residential for cough and dyspnea and was found to be hypoglycemic. Patient subsequently received D50 and IV solumedrol. Patient then had glucose levels above 200s and then over 300s and was then started on insulin drip for careful glycemic control. Patient from admission 01/15/17 was started on IV Levaquin renally dosed for pneumonia vs bronchitis. However, blood culture from admission resulting in gram positive cocci in clusters as staph species BLD CULT Final 01/19/17-0749 Organism 1 COAG NEG STAPH NOT LUGDUNENSIS SENS SENSITIVITY TO FOLLOW Phoned Positive Blood Culture Gram Stain Report to ALIZE COTA on 01/16/17 At 1601 By NATHEN. Results were verbalized back to HARSEBASTIANR. 1. COAG NEG STAPH NOT LUGDUNENSIS Target Route Dose RX AB Cost M.I.C. IQ ------ ----- ------ -- ------ -------- - ------ TRIMET/SULFA S <=0.5/ 9.5 * OXACILLIN R >2 VANCOMYCIN S 1 ERYTHROMYCIN R >4 TETRACYCLINE R >8 CLINDAMYCIN R <=0.5 DAPTOMYCIN S <=0.5 This is unusual that a coagulase negative staph is resistant to oxacillin. Have discussed theses results with Dr. lAejandra, Infectious disease doctor about these findings and he recommends repeat blood culture and to continue with vancomycin. Vancomycin renally dosed for coverage staph species in case this is MRSA: first dose Vanc on 01/16/17, second dose Vanc on 01/17/17, will get 3rd dose Vanc on 01/18/17, will need vanc trough before 4th dose was 20.7, pharmacy aware and will adjust Vanc dosage will also discontinue Levaquin Cardiac -Diastolic dysfunction Grade II, EF EF 60-65% on TTE 01/18/2017 -pro-BNP 701 on 01/18/17 -bilateral lower extremity edema improving Renal/Electrolytes -VICTORINO on CKD: -Creatinine trended up from 1.5 to 1.7, pharmacy to reduce vancomycin dosing DM II (on insulin): -pharmacy diabetic consult following patient on glucose control -has been on steroids for respiratory issues Transaminitis: -AST, ALT slightly elevated on admission, now downtrending HTN: -continue home dose amlodipine 5 mg Severe dementia and anxiety history -re-orient patient as needed Hypothyroidism: -had been on home dose Levothyroxine 75 mcg daily but TSH 0.157 low and T4 8.4 is suggestive of hyperthyroidism vs overuse of levothyroxine -hold levothyroxine for now Erythema around left eye -erythema has increased around left eye, patient instructed not to touch the eye , nurse informed to put eye patch on patient after ciprofloxacin eye drops, start visine eyedrops. DVT Ppx: heparin Code status: DNR, per paperwork sent by [facility] PCP: Tejal Dispo: Plan to return to [facility] once medically stable for discharge Vital Signs: Date Time Temp Pulse Resp B/P (MAP) Pulse Ox O2 Delivery O2 Flow Rate FiO2 01/19/17 16:16 37.1 60 16 108/59 (75) 95 Room Air 01/19/17 16:00 Room Air 01/19/17 14:23 60 16 95 Room Air 01/19/17 08:00 100 Room Air 01/19/17 07:58 36.7 76 18 159/71 (100) 100 Room Air 01/19/17 07:34 70 16 93 Room Air 01/19/17 00:00 Room Air 01/18/17 23:09 36.7 79 20 153/72 (99) 95 Room Air Lab Results: Results Past 24 Hours Test 01/19/17 06:37 01/19/17 07:31 01/19/17 11:39 01/19/17 16:26 Range/Units White Blood Count 10.37 4.8-10.8 K/uL Red Blood Count 4.74 4.2-5.4 M/uL Hemoglobin 12.6 12.0-16.0 g/dL Hematocrit 39.6 37-47 % Mean Corpuscular Volume 83.5 80-100 fL Mean Corpuscular Hemoglobin 26.6 25-34 pg Mean Corpuscular Hemoglobin Concent 31.8 32-36 g/dl Platelet Count 322 130-400 K/uL Mean Platelet Volume 10.0 7.4-10.4 fL Neutrophils (%) (Auto) 56.2 % Lymphocytes (%) (Auto) 34.1 % Monocytes (%) (Auto) 5.1 % Eosinophils (%) (Auto) 3.2 % Basophils (%) (Auto) 0.3 % Neutrophils # (Auto) 5.83 1.4-6.5 K/uL Lymphocytes # (Auto) 3.54 1.2-3.4 K/uL Monocytes # (Auto) 0.53 0.11-0.59 K/uL Eosinophils # (Auto) 0.33 0-0.5 K/uL Basophils # (Auto) 0.03 0-0.2 K/uL RDW Standard Deviation 50.5 36.4-46.3 fL RDW Coefficient of Variation 16.6 11.5-14.5 % Immature Granulocyte % (Auto) 1.1 % Immature Granulocyte # (Auto) 0.11 0.00-0.02 K/uL Sodium Level 141 136-145 mmol/L Potassium Level 4.1 3.5-5.1 mmol/L Chloride Level 105 98-107 mmol/L Carbon Dioxide Level 31 21-32 mmol/L Anion Gap 5.0 3-11 mmol/L Blood Urea Nitrogen 44 7-18 mg/dl Creatinine 1.70 0.60-1.20 mg/dl Est Creatinine Clear Calc Drug Dose 24.6 ml/min Estimated GFR () 30.7 Estimated GFR (Non- 26.5 BUN/Creatinine Ratio 26.0 10-20 Random Glucose 201 70-99 mg/dl Calcium Level 8.8 8.5-10.1 mg/dl Total Bilirubin 0.3 0.2-1 mg/dl Aspartate Amino Transf (AST/SGOT) 36 15-37 U/L Alanine Aminotransferase (ALT/SGPT) 58 12-78 U/L Alkaline Phosphatase 60 45-117 U/L Total Protein 6.2 6.4-8.2 gm/dl Albumin 2.4 3.4-5.0 gm/dl Globulin 3.8 2.5-4.0 gm/dl Albumin/Globulin Ratio 0.6 0.9-2 Bedside Glucose 184 210 162 70-90 mg/dl Test 01/19/17 17:12 01/19/17 20:17 Range/Units Vancomycin Level Trough 20.7 SEE COMMENT mcg/ml Bedside Glucose 169 70-90 mg/dl Microbiology Results 01/19/17 Blood Culture, Received Pending 01/19/17 Blood Culture, Received Pending
[2017-01-20] VITALS (7 sets, daily range): BP systolic 101–121; BP diastolic 40–68; PULSE 60–74; TEMP 36.6–37.2; O2SAT 90–95
[2017-01-20] MEDS ORDERED: VANCOMYCIN INJ 1,250 MG in SODIUM CHLORIDE 0.9% 250ML 250 ML IV SCH ×2
[2017-01-20] MEDS: IPRATROPIUM BROMIDE NEB SOLN 0.02% 2.5 ML VIAL INH SCH ×4 (01:40→20:00)
[2017-01-20] MEDS: LEVALBUTEROL 1.25MG/0.5ML NEB INH SCH ×4 (01:40→20:00)
[2017-01-20 06:34] LABS: BASO % 0.4 %; BASO ABS # 0.05 K/uL (0-0.2); COMPLETE YES; EOS % 2.5 %; HEMATOCRIT 38.3 % (37-47); IG% 1.2 %; LYMPH ABS # 3.02 K/uL (1.2-3.4); MEAN CELL VOLUME 83.8 fL (80-100); MEAN CORPUSCULAR HEMOGLOBIN 27.4 pg (25-34); MEAN CORPUSCULAR HGB CONC 32.6 g/dl (32-36); MEAN PLATELET VOLUME 10.5 fL (7.4-10.4); MONO % 5.1 %; NEUT % 63.8 %; PLATELET COUNT 292 K/uL (130-400); RED BLOOD COUNT 4.57 M/uL (4.2-5.4); WHITE BLOOD COUNT 11.17 K/uL (4.8-10.8)
[2017-01-20 07:23] LABS: ALB/GLOB RATIO 0.6 (0.9-2); ALKALINE PHOSPHATASE 59 U/L (45-117); ALT/SGPT 48 U/L (12-78); BLOOD UREA NITROGEN 34 mg/dl (7-18); BUN/CREATININE RATIO 24.4 (10-20); CALCIUM 8.7 mg/dl (8.5-10.1); CARBON DIOXIDE 28 mmol/L (21-32); CHLORIDE 106 mmol/L (98-107); GLUCOSE 125 mg/dl (70-99); SODIUM 141 mmol/L (136-145)
[2017-01-20] MEDS: MULTIVITAMIN TAB PO SCH (07:35)
[2017-01-20] MEDS: PANTOprazole SOD 40 MG TAB PO SCH (07:35)
[2017-01-20] MEDS: ASPIRIN 81 MG ECTAB PO SCH (07:35)
[2017-01-20] MEDS: ALLOPURINOL 100 MG TAB PO SCH (07:35)
[2017-01-20] MEDS: AMLODIPINE BESYLATE 5 MG TAB PO SCH (07:36)
[2017-01-20] MEDS: NAPHAZOLIN/PHENIRAMIN OPH SOLN 75 DROPS/5 ML BTL OPL SCH (07:36)
[2017-01-20] MEDS: CIPROFLOXACIN HCL 0.3% OP SOLN 2.5 ML BTL OPB SCH ×2 (07:36→20:43)
[2017-01-20] MEDS: NYSTATIN OINT 15 GM TUBE EXT SCH ×2 (07:37→20:43)
[2017-01-20] MEDS: PREGABALIN 75 MG CAP PO SCH ×2 (07:42→20:43)
[2017-01-20] MEDS: INSULIN GLARGINE SOLOSTAR 100 UNITS/ML 3 ML PEN SC SCH ×2 (07:54→20:50)
[2017-01-20] MEDS: INSULIN ASPART 100 UNITS/ML 3 ML PEN SC SCH ×4 (07:54→20:49)
[2017-01-20] MEDS: HEPARIN SOD 5000 UNIT/0.5 ML CARP SQ SCH ×2 (07:55→20:50)
[2017-01-20 08:46] LABS: POTASSIUM 4.3 mmol/L (3.5-5.1)
--- NOTE | 2017-01-20 13:12 | Pharmacy Progress Note ---
Glycemic: Assessment & Plan Date of Service Jan 20, 2017. Assessment & Plan The patient is currently receiving ~90 units of insulin per day. BSGs ranging 107 - 169 mg/dl over the past 24hrs. * Basal insulin: Lantus 25 units every 12 hours * Correctional Insulin: Novolog Correction per scale ACHS Goal Range: Low 110 mg/dL - High 140 mg/dL Correction Factor: 15 mg/dL/unit * Prandial insulin: Per carb ratio of 1 unit per 6 grams CHO consumed BSGs have improved significantly from yesterday but I'm now concerned that they will fall too much PO intake is adequate but will still make a few minor adjustments to prevent hypoglycemia PLAN FOR INPATIENT GLYCEMIC CONTROL: * Decrease Lantus to 22 units BID * LOOSEN CF to 20 mg/dL/unit Pharmacy will continue to monitor patient daily and write orders per [facility] inpatient glycemic control protocol. Thanks. * Please note that the plan above was derived based on current level of insulin resistance and hospital stress. These recommendations are appropriate for inpatient admission only. Plan of care upon discharge will need to be reassessed to avoid potential outpatient hypo/hyperglycemia.
[2017-01-20] MEDS: MIRTAZAPINE TAB 15 MG TAB PO SCH (20:43)
[2017-01-20] MEDS: DOCUSATE SODIUM/SENNA 50/8.6MG TAB PO SCH (20:43)
--- NOTE | 2017-01-20 23:25 | Progress Note ---
Internal Med Progress Note Date of Service: Jan 20, 2017. Provider Documentation: SUBJECTIVE: patient reports of continuing to have cough. Left eye continues to have redness around eyelids. Patient continues to have cough. She denies focal areas of pain OBJECTIVE: Exam: General- awake and alert, able to speak in full sentences Eyes- erythema of eyes, EOMI, no occular pain ENT- no nasal or oral discharges Neck- nontender Lungs- good air entry, lungs generally clear, no wheezing Heart- regular heart rate, chest nontender Abdomen- soft, nontender, + bowel sounds Extremities- 1+ bilateral lower extremity edema Neuro-no focal neurological deficits ASSESSMENT & PLAN: Patient is an 86yo female with a PMH of DM II (on insulin), HTN, chronic diastolic HF, hypothyroidism and severe dementia, with pre-admission history of bacterial PNA on 01/10 on Levaquin who [facility] and dyspnea and was found to be hypoglycemic. Patient subsequently received D50 and IV solumedrol. Patient then had glucose levels above 200s and then over 300s and was then started on insulin drip for careful glycemic control. Patient from admission 01/15/17 was started on IV Levaquin renally dosed for pneumonia vs bronchitis. However, blood culture from admission resulting in gram positive cocci in clusters as staph species BLD CULT Final 01/19/17 Organism 1 COAG NEG STAPH NOT LUGDUNENSIS SENS SENSITIVITY TO FOLLOW 1. COAG NEG STAPH NOT LUGDUNENSIS Target Route Dose RX AB Cost M.I.C. IQ ------ ----- ------ -- ------ -------- - ------ TRIMET/SULFA S <=0.5/ 9.5 * OXACILLIN R >2 VANCOMYCIN S 1 ERYTHROMYCIN R >4 TETRACYCLINE R >8 CLINDAMYCIN R <=0.5 DAPTOMYCIN S <=0.5 This is unusual that a coagulase negative staph is resistant to oxacillin. Have discussed theses results with Dr. Alejandra, Infectious disease doctor. Vancomycin renally dosed for coverage staph species in case this is MRSA: first dose Vanc on 01/16/17, second dose Vanc on 01/17/17, will get 3rd dose Vanc on 01/18/17, will need vanc trough before 4th dose was 20.7 and vancomycin have been adjusted to 1750 mg Iv q28 hours and patient has completed dose number 6 out of 14 day course as per infectious disease doctors. Levaquin from 01/15/17 to 01/19/17 Cardiac -Diastolic dysfunction Grade II, EF EF 60-65% on TTE 01/18/2017 -pro-BNP 701 on 01/18/17 -bilateral lower extremity edema improving Renal/Electrolytes -VICTORINO on CKD, monitor vancomycin levels DM II (on insulin): -pharmacy diabetic consult following patient on glucose control -has been on steroids for respiratory issues Transaminitis: -AST, ALT slightly elevated on admission, now downtrending HTN: -continue home dose amlodipine 5 mg Severe dementia and anxiety history -re-orient patient as needed Hypothyroidism: -had been on home dose Levothyroxine 75 mcg daily but TSH 0.157 low and T4 8.4 is suggestive of hyperthyroidism vs overuse of levothyroxine -hold levothyroxine for now Erythema around left eye -erythema has increased around left eye, patient instructed not to touch the eye , nurse informed to put eye patch on patient after ciprofloxacin eye drops, start visine eyedrops. DVT Ppx: heparin Code status: DNR, [facility]: Tejal Dispo: Plan to return to [facility] for completion of vancomycin IV, with 6 out of 14 day course completed for treatment of staph in blood. Vital Signs: Date Time Temp Pulse Resp B/P (MAP) Pulse Ox O2 Delivery O2 Flow Rate FiO2 01/21/17 14:08 60 16 93 Room Air 01/21/17 09:38 94 Room Air 01/21/17 07:48 36.7 63 20 148/88 (108) 92 Room Air 01/21/17 07:45 92 Room Air 01/21/17 07:32 60 16 93 Room Air 01/21/17 00:40 36.9 60 16 123/68 (86) 93 Room Air 01/20/17 23:15 Room Air 01/20/17 20:00 60 16 91 Room Air 01/20/17 16:00 Room Air 01/20/17 15:56 37.2 73 20 101/40 (60) 93 Room Air Lab Results: Results Past 24 Hours Test 01/20/17 16:53 01/20/17 20:43 01/21/17 07:37 01/21/17 11:47 Range/Units Bedside Glucose 176 216 160 119 70-90 mg/dl
[2017-01-21] VITALS (7 sets, daily range): BP systolic 123–148; BP diastolic 68–88; PULSE 60–63; TEMP 36.7–36.9; O2SAT 92–94
[2017-01-21] MEDS ORDERED: VANCOMYCIN INJ 1,250 MG in SODIUM CHLORIDE 0.9% 250ML 250 ML IV SCH ×2
[2017-01-21] MEDS: LEVALBUTEROL 1.25MG/0.5ML NEB INH SCH ×3 (02:08→14:09)
[2017-01-21] MEDS: IPRATROPIUM BROMIDE NEB SOLN 0.02% 2.5 ML VIAL INH SCH ×3 (02:08→14:08)
[2017-01-21] MEDS: HEPARIN SOD 5000 UNIT/0.5 ML CARP SQ SCH (08:42)
[2017-01-21] MEDS: ALLOPURINOL 100 MG TAB PO SCH (08:43)
[2017-01-21] MEDS: INSULIN ASPART 100 UNITS/ML 3 ML PEN SC SCH ×3 (08:43→17:04)
[2017-01-21] MEDS: INSULIN GLARGINE SOLOSTAR 100 UNITS/ML 3 ML PEN SC SCH (08:43)
[2017-01-21] MEDS: CIPROFLOXACIN HCL 0.3% OP SOLN 2.5 ML BTL OPB SCH (08:44)
[2017-01-21] MEDS: PANTOprazole SOD 40 MG TAB PO SCH (08:44)
[2017-01-21] MEDS: NAPHAZOLIN/PHENIRAMIN OPH SOLN 75 DROPS/5 ML BTL OPL SCH (08:44)
[2017-01-21] MEDS: ASPIRIN 81 MG ECTAB PO SCH (08:44)
[2017-01-21] MEDS: POTASSIUM CHLORIDE 10 MEQ TABCR PO SCH (08:44)
[2017-01-21] MEDS: MULTIVITAMIN TAB PO SCH (08:44)
[2017-01-21] MEDS: AMLODIPINE BESYLATE 5 MG TAB PO SCH (08:44)
[2017-01-21] MEDS: NYSTATIN OINT 15 GM TUBE EXT SCH (08:47)
[2017-01-21] MEDS: PREGABALIN 75 MG CAP PO SCH (08:48)
--- NOTE | 2017-01-21 10:44 | Progress Note ---
Progress Note Date of Service Jan 21, 2017. Progress Note ID Consult Dictated #[id number] A/P: 1. [employer] BSI -Will continue vanco, echo negative, repeat culture negative -Would give 14 days vanco total -ok for picc if needed -thank you
--- NOTE | 2017-01-21 12:36 | INFECT. DISEASE CONSULTATION ---
DATE OF CONSULTATION: 01/21/2017 REQUESTING PHYSICIAN: Dr. Padron. HISTORY OF PRESENT ILLNESS: This is an 87-year-old female who was admitted from her assisted living facility. She had worsening cough. She apparently was recently diagnosed with pneumonia on January 10 and started on Levaquin and steroids and nebulizer treatment. She did have a chest x-ray which did not show pneumonia, but did show pulmonary congestion and she was also begun on diuretics. She was sent to the ER for further workup on the . At that time, blood cultures were obtained and grew coagulase negative Staph sensitive to vancomycin. She has been on vancomycin. Repeat blood cultures were obtained yesterday and are pending. She had an echo on the which was negative for vegetation. She has had a normal white blood cell count. She has been afebrile since admission. On my examination today, she states she is feeling better. Her cough is diminished. She denies any shortness of breath or wheezing. She has no chest pain. She denies any nausea, vomiting or diarrhea. She states her appetite is stable. She is tolerating antibiotics well. All remaining review of systems is reviewed and is unremarkable. PAST MEDICAL HISTORY: Significant for type 2 diabetes, hypertension, heart failure, hypothyroidism and dementia. SOCIAL HISTORY: Significant for history of tobacco use. She currently resides at [facility]. FAMILY HISTORY: Noncontributory. ALLERGIES: INCLUDE PENICILLIN AND CEPHALOSPORINS, FENTANYL AND SULFA. CURRENT MEDICATIONS: Include vancomycin, insulin, Atrovent, Xopenex, subQ heparin, potassiums, Desenex, Tylenol, allopurinol, Norvasc, Ecotrin, multivitamin, Protonix, ciprofloxacin eyedrops, eyedrops, Remeron, Mycostatin ointment, Lyrica, Senokot, Robitussin, Zofran. PHYSICAL EXAMINATION: VITAL SIGNS: She is afebrile, pulse 63, respiratory rate 20, blood pressure 148/88, and oxygen saturation is 94% on room air. GENERAL: She is awake and alert. She is in no acute distress. HEENT: Mucous membranes are moist. Extraocular muscles are intact. She does have a patch over the left eye. There is no surrounding erythema. HEART: Regular. LUNGS: Clear bilaterally. ABDOMEN: Soft, nontender, nondistended. There is no edema bilaterally. SKIN: Without rash. LABORATORY STUDIES: CBC yesterday reveals a white blood cell count of 11.1, hemoglobin 12.5, platelets are 292. Chemistry panel done yesterday reveals sodium of 141, chloride 106, bicarbonate 28, BUN 34, creatinine 1.4, glucose is 129. LFTs are within normal limits. Urinalysis is unremarkable. Vancomycin level on the 9 was 20. Blood cultures from the are growing coagulase negative Staph with sensitivities to vancomycin. Repeat blood cultures on the are no growth to date x2 sets. IMAGING DATA: Chest x-ray most recently done on the shows opacities suggesting atelectasis. ASSESSMENT AND PLAN: Positive blood cultures question contaminant; however, with her recent illness, I would recommend a 14-day course of IV vancomycin. She has been on this since admission and can complete a 14-day course. Her repeat blood cultures are negative. Her echo was negative. If she does need PICC line, there will be no contraindication from an ID standpoint. Thank you for this consultation.
--- NOTE | 2017-01-21 14:52 | Discharge Instructions ---
Discharge Instructions Date of Service Jan 21, 2017. Admission Reason for Admission: Cough, Dyspnea On Exertion Discharge Discharge Diagnosis / Problem: cough, Activity Recommendations . Current Hospital Diet Patient's current hospital diet: Diabetes Type 2 Diet Laboratory Results Hemoglobin A1c Test 01/16/17 03:55 Range/Units Estimated Average Glucose 183 mg/dl Hemoglobin A1c 8.0 H 4.5-5.6 % Medical Emergencies . Who to Call and When: Medical Emergencies: If at any time you feel your situation is an emergency, please call 911 immediately. . Non-Emergent Contact . . "Provider Documentation" section prepared by Ryan Padron. .
[2017-01-21] MEDS ORDERED: INSDGI SC (15:04)
[2017-01-21] MEDS ORDERED: vancomycin IV ×2 (15:04→15:46)
--- NOTE | 2017-01-21 15:13 | Discharge Instructions ---
Discharge Instructions Date of Service Jan 21, 2017. Admission Reason for Admission: Cough, Dyspnea On Exertion Discharge Discharge Diagnosis / Problem: staph bacteremia in blood, cough, left eye conjunctivitis Discharge Goals Goal(s): Improve disease control Activity Recommendations Activity Limitations: as noted below Lifting Limitations: gradually increase as tolerated Exercise/Sports Limitations: gradually increase as tolerated May Resume Sexual Activity: when tolerated Shower/Bathe: no limitations . Instructions / Follow-Up Instructions / Follow-Up Patient is an 86yo female with a PMH of DM II (on insulin), HTN, chronic diastolic HF, hypothyroidism and severe dementia, with pre-admission history of bacterial PNA on 01/10 on Levaquin who presents to the ED from [facility] for cough and dyspnea and was found to be hypoglycemic. Patient subsequently received D50 and IV solumedrol. Patient then had glucose levels above 200s and then over 300s and was then started on insulin drip for careful glycemic control. Patient from admission 01/15/17 was started on IV Levaquin renally dosed for pneumonia vs bronchitis. However, blood culture from admission resulting in gram positive cocci in clusters as staph species BLD CULT Final 01/19/17 Organism 1 COAG NEG STAPH NOT LUGDUNENSIS SENS SENSITIVITY TO FOLLOW 1. COAG NEG STAPH NOT LUGDUNENSIS Target Route Dose RX AB Cost M.I.C. IQ ------ ----- ------ -- ------ -------- - ------ TRIMET/SULFA S <=0.5/ 9.5 * OXACILLIN R >2 VANCOMYCIN S 1 ERYTHROMYCIN R >4 TETRACYCLINE R >8 CLINDAMYCIN R <=0.5 DAPTOMYCIN S <=0.5 This is unusual that a coagulase negative staph is resistant to oxacillin. Have discussed theses results with Dr. Alejandra, Infectious disease doctor. Vancomycin renally dosed for coverage staph species in case this is MRSA: first dose Vanc on 01/16/17, second dose Vanc on 01/17/17, will get 3rd dose Vanc on 01/18/17, will need vanc trough before 4th dose was 20.7 and vancomycin have been adjusted to 1750 mg Iv q28 hours and patient has completed dose number 6 out of 14 day course as per infectious disease doctors. Levaquin from 01/15/17 to 01/19/17 Cardiac -Diastolic dysfunction Grade II, EF EF 60-65% on TTE 01/18/2017 -pro-BNP 701 on 01/18/17 -bilateral lower extremity edema improving Renal/Electrolytes -VICTORINO on CKD, monitor vancomycin levels DM II (on insulin): -pharmacy diabetic consult following patient on glucose control -has been on steroids for respiratory issues Transaminitis: -AST, ALT slightly elevated on admission, now downtrending HTN: -continue home dose amlodipine 5 mg Severe dementia and anxiety history -re-orient patient as needed Hypothyroidism: -had been on home dose Levothyroxine 75 mcg daily but TSH 0.157 low and T4 8.4 is suggestive of hyperthyroidism vs overuse of levothyroxine -hold levothyroxine for now Erythema around left eye -erythema has increased around left eye, patient instructed not to touch the eye , nurse informed to put eye patch on patient after ciprofloxacin eye drops, start visine eyedrops. DVT Ppx: heparin Code status: DNR, per paperwork sent by [facility] PCP: Tejal Dispo: Plan to return to [facility] for completion of vancomycin IV, with 6 out of 14 day course completed for treatment of staph in blood. Current Hospital Diet Patient's current hospital diet: Diabetes Type 2 Diet Discharge Diet Recommended Diet: Diabetes Type 2 Diet Pending Studies Studies pending at discharge: no Laboratory Results Hemoglobin A1c Test 01/16/17 03:55 Range/Units Estimated Average Glucose 183 mg/dl Hemoglobin A1c 8.0 H 4.5-5.6 % Medical Emergencies . Who to Call and When: Medical Emergencies: If at any time you feel your situation is an emergency, please call 911 immediately. . Non-Emergent Contact Non-Emergency issues call your: Primary Care Provider . . "Provider Documentation" section prepared by Ryan Padron. . VTE Core Measure Inpt VTE Proph given/why not?: Unfractionated heparin SQ
--- NOTE | 2017-01-21 15:21 | Discharge Summary ---
Discharge Summary Date of Service Jan 21, 2017. Discharge Summary Admission Date: Jan 15, 2017 at 19:46 Discharge Date: Jan 21, 2017 Discharge Disposition: senior living facility Principal Diagnosis: staph bacteremia, cough, conjunctivitis, diabetes Consultations: infectious disease Medication Reconciliation New Medications: [vancomycin] () 1250 MG IV Q28H for infection for 8 Days Changed Medications: Insulin Glargine (Lantus) 100 Unit/Ml Inj 22 UNITS SC BID for 30 Days, VIAL (Changed from: 44 UNITS) Continued Medications: Allopurinol (Zyloprim) 100 Mg Tab 100 MG PO DAILY, TAB Amlodipine (Norvasc) 5 Mg Tab 5 MG PO DAILY, TAB Aspirin (Aspirin Ec) 81 Mg Tab 81 MG PO DAILY Ciprofloxacin Ophth Soln (Ciprofloxacin Ophth Soln) 0.3 % Sonali 1 DROP OPR DIRECTED, BTL Insulin Aspart (Novolog) 100 Units/Ml Inj 8 UNITS SQ QAM Insulin Aspart (Novolog) 100 Units/Ml Inj 12 UNITS SQ NOON Insulin Aspart (Novolog) 100 Units/Ml Inj 4 UNITS SQ QPM Ipratropium-Albuterol (Duoneb) 3 Ml Nebu 1 TREATMENT INH Q4H, INHA Levothyroxine Sodium (Synthroid) 75 Mcg Tab 75 MCG PO DAILY Memantine Hcl (Namenda Xr) 7 Mg Cap 7 MG PO DAILY Mirtazapine (Mirtazapine) 15 Mg Tab 30 MG PO HS Multivitamin (Multivitamin) Tab 1 TAB PO DAILY, TAB Pantoprazole (Protonix) 40 Mg Tab 40 MG PO DAILY, #30 TAB Potassium Chloride (Micro-K Ext Rel) 10 Meq Capcr 10 MEQ PO Q2D, CAP Pregabalin (Lyrica) 75 Mg Cap 75 MG PO BID, CAP Sennosides-Docusate Sodium (Senexon-S) 1 Tab Tab 2 TAB PO HS Discontinued Medications: Levofloxacin (Levaquin) 500 Mg Tab 500 MG PO DAILY for 7 Days, TAB Memantine Hcl (Namenda Xr) 14 Mg Cap 14 MG PO DAILY Nystatin (Topical) (Nystatin) 100,000 Unit/Gm Oin 1 APPLN TOP BID, GM Polyethylene Glycol 3350 (Miralax) 1 Pow Pow 17 GM PO 2XWK, #255 GM Prednisone (Prednisone) 20 Mg Tab 2 TAB PO DAILY, #5 TAB Admission Information HPI (per Admitting provider): Patient is an 86yo female with a PMH of DM II (on insulin), HTN, chronic diastolic HF, hypothyroidism and severe dementia who presents with a cough and dyspnea over the past few days. Patient is a resident at [facility], where she was diagnosed with bacterial PNA on 01/10/17 and started on Levaquin, steroids and neb treatments. CXR also showed pulmonary vascular congestion, so patient was on Lasix 40mg x 2 days and Lasix 20mg x 3 days. Per note from [facility], patient was re-examined today after daughter noticed increased fatigue, cough and dyspnea. Was sent by EMS to the ED for further evaluation. Due to severe dementia, patient is not a reliable historian. Did not know she had been previously diagnosed with PNA. Patient is still dyspneic after breathing treatments but says that wheezing has stopped. Endorses itchy eyes and cough with productive yellow sputum. Denies fever, chills, rhinorrhea, nasal congestion, CP, abd pain or LE swelling. In the ER, patient was found to be hypoglycemic to 40. Course included D50 as well as neb treatments, IV steroids and doxycycline. Physical Exam (per Admitting): General Appearance: WD/WN, + mild distress (Patient ill appearing and confused but cooperative on exam. ) Head: normocephalic, atraumatic Eyes: + pertinent finding (Esotropia of L eye. Eyelids with erythema bilaterally.) ENT: hearing grossly normal Neck: supple, no adenopathy, trachea midline Respiratory/Chest: chest non-tender, no respiratory distress, no accessory muscle use, + rhonchi, + wheezing Cardiovascular: regular rate, rhythm Abdomen/GI: normal bowel sounds, non tender, soft, no organomegaly Extremities/Musculoskelatal: normal inspection, no calf tenderness, normal capillary refill, no pedal edema Neurologic/Psych: alert (Oriented to self. Confused about place, time, situation 2/2 dementia) Skin: normal color, warm/dry, no rash (Some scabbed lesions present on chest. No surrounding erythema, drainage. ) Hospital Course Patient is an 86yo female with a PMH of DM II (on insulin), HTN, chronic diastolic HF, hypothyroidism and severe dementia, with pre-admission history of bacterial PNA on 01/10 on Levaquin who presents to the ED from residential for cough and dyspnea and was found to be hypoglycemic. Patient subsequently received D50 and IV solumedrol. Patient then had glucose levels above 200s and then over 300s and was then started on insulin drip for careful glycemic control. Patient from admission 01/15/17 was started on IV Levaquin renally dosed for pneumonia vs bronchitis. However, blood culture from admission resulting in gram positive cocci in clusters as staph species BLD CULT Final 01/19/177611 Organism 1 COAG NEG STAPH NOT LUGDUNENSIS SENS SENSITIVITY TO FOLLOW 1. COAG NEG STAPH NOT LUGDUNENSIS Target Route Dose RX AB Cost M.I.C. IQ ------ ----- ------ -- ------ -------- - ------ TRIMET/SULFA S <=0.5/ 9.5 * OXACILLIN R >2 VANCOMYCIN S 1 ERYTHROMYCIN R >4 TETRACYCLINE R >8 CLINDAMYCIN R <=0.5 DAPTOMYCIN S <=0.5 This is unusual that a coagulase negative staph is resistant to oxacillin. Have discussed theses results with Dr. Alejandra, Infectious disease doctor. Vancomycin renally dosed for coverage staph species in case this is MRSA: first dose Vanc on 01/16/17, second dose Vanc on 01/17/17, will get 3rd dose Vanc on 01/18/17, will need vanc trough before 4th dose was 20.7 and vancomycin have been adjusted to 1750 mg Iv q28 hours and patient has completed dose number 6 out of 14 day course as per infectious disease doctors. Levaquin from 01/15/17 to 01/19/17 Cardiac -Diastolic dysfunction Grade II, EF EF 60-65% on TTE 01/18/2017 -pro-BNP 701 on 01/18/17 -bilateral lower extremity edema improving Renal/Electrolytes -VICTORINO on CKD, monitor vancomycin levels DM II (on insulin): -pharmacy diabetic consult following patient on glucose control -has been on steroids for respiratory issues Transaminitis: -AST, ALT slightly elevated on admission, now downtrending HTN: -continue home dose amlodipine 5 mg Severe dementia and anxiety history -re-orient patient as needed Hypothyroidism: -had been on home dose Levothyroxine 75 mcg daily but TSH 0.157 low and T4 8.4 is suggestive of hyperthyroidism vs overuse of levothyroxine -hold levothyroxine for now Erythema around left eye -erythema has increased around left eye, patient instructed not to touch the eye , nurse informed to put eye patch on patient after ciprofloxacin eye drops, start visine eyedrops. DVT Ppx: heparin Code status: DNR, per paperwork sent by [facility] PCP: Tejal Dispo: Plan to return to [facility] for completion of vancomycin IV, with 6 out of 14 day course completed for treatment of staph in blood. Total time spent on discharge = This includes examination of the patient, discharge planning, medication reconciliation, and communication with other providers. Discharge Instructions see in hospital course
[2017-01-22] MEDS ORDERED: VANCOMYCIN TROUGH SCH (03:30)
--- NOTE | 2017-01-23 14:13 | EDITING REQUIRED CODING QUERY ---
CODING QUERY To promote full compliance with coding requirements relating to patient care, provider participation is requested in all cases of professor of family medicine uncertainty. Please assist us with the question(s) below: Coding Question(s): Patient admitted with shortness of breath and cough from [facility] where she had been diagnosed with pneumonia/bronchitis on 01/10. She was started on Levaquin, steroids and nebulizers_ Pt presents to hospital still dyspneic after breathing treatments,etc. Please indicate the diagnosis, after study, to be responsible for this patient's shortness of breath. Thanks for your assistance. Americo Olivia, [facility] Physician's Response(s): Patient was treated with antibiotics initially for concern of pneumonia non responsive to original medications. However, chest X rays generally okay. Was then found to have a bacteria sensitive to vancomycin but not to typical beta lactamase in blood cultures and so antibiotics then targeted for that reason. I think dyspnea after treatments may suggest an underlying upper respiratory infection vs history of obstructive lung disease. Principal Diagnosis: "_that condition established after study, to be chiefly responsible for occasioning the admission of the patient to the hospital for care." Co-Existing Principal Diagnosis: "_when two or more diagnoses equally meet the criteria for principal diagnosis as determined by the circumstances of admission, diagnostic work up, and/or therapy provided, and the Alphabetic Index, Tabular List, or another coding guideline does not provide sequencing direction, any one of the diagnoses may be sequenced first." "When the physician has documented what appears to be a current diagnosis in the body of the record, but has not included the diagnosis in the final diagnostic statement, the physician should be asked whether the diagnosis should be added." (Source Coding [facility] 2 QTR90. p3-4)
== END 2017-01-21 19:00 | DRG 202 ==
LOC: EDBD 16:55 → C.EDA 16:55 → C.MS2W 19:46 → ENRESERV 20:03
PROVIDERS: ADMIT Internal Medicine; ATTEND Hospitalist
PROC: 02HV33Z Insertion of Infusion Device into Superior Vena Cava, Percutaneous Approach (ICD-10-PCS; principal; 2017-01-21)
DX: J40 Bronchitis, not specified as acute or chronic (principal); J06.9 Acute upper respiratory infection, unspecified; E11.649 Type 2 diabetes mellitus with hypoglycemia without coma; R78.81 Bacteremia; I50.32 Chronic diastolic (congestive) heart failure; I13.0 Hypertensive heart and chronic kidney disease with heart failure and stage 1 through stage 4 chronic kidney disease, or unspecified chronic kidney disease; N17.9 Acute kidney failure, unspecified; Z88.2 Allergy status to sulfonamides; N18.3 Chronic kidney disease, stage 3 (moderate); E11.21 Type 2 diabetes mellitus with diabetic nephropathy; F03.90 Unspecified dementia, unspecified severity, without behavioral disturbance, psychotic disturbance, mood disturbance, and anxiety; E03.9 Hypothyroidism, unspecified; Z87.891 Personal history of nicotine dependence; Z79.4 Long term (current) use of insulin; H01.009 Unspecified blepharitis unspecified eye, unspecified eyelid; R09.02 Hypoxemia; H10.9 Unspecified conjunctivitis; Z88.0 Allergy status to penicillin; Z95.0 Presence of cardiac pacemaker

== ENCOUNTER 2018-09-08 12:28 | Inpatient (IN) ==
--- NOTE | 2018-09-08 14:01 | CT Scan Report ---
CT head/brain wo con CT DOSE: 537.48 mGy.cm HISTORY: Mental status change ams TECHNIQUE: Multiaxial CT images of the head were performed without the use of intravenous contrast. A dose lowering technique was utilized adhering to the principles of ALARA. Comparison: None. Findings: The paranasal sinuses and mastoid air cells are clear. The calvarium and skull base are int act. The ventricles and sulci are within normal limits. There is no mass, hematoma, midline shift, or acute infarct. Impression: No acute intracranial abnormality. The above report was generated using voice recognition software. It may contain grammatical, syntax or spelling errors. Electronically signed by: Kun Berrios M.D. 09/08/2018 1:59 PM
[2018-09-08 14:26] LABS: Albumin Level 2.9 gm/dl (3.4-5.0); BUN Creatinine Ratio 18.5 (10-20); Calcium 8.1 mg/dl (8.5-10.1); Creatinine Clr Calc Pharmacy 17.3 ml/min; Est GFR (African American) 20.8; Est GFR (Non-African American) 17.9; Potassium 6.1 mmol/L (3.5-5.1)
[2018-09-08 14:34] LABS: Albumin Globulin Ratio 0.6 (0.9-2); Bilirubin,Total 0.3 mg/dl (0.2-1); Globulin 4.7 gm/dl (2.5-4.0); Total Protein 7.6 gm/dl (6.4-8.2); Troponin I 0.056 ng/ml (0-0.045)
[2018-09-08 14:49] LABS: Basophils # (auto) 0.04 K/uL (0-0.2); Basophils % (auto) 0.4 %; Eosinophils # (auto) 0.02 K/uL (0-0.5); Eosinophils % (auto) 0.2 %; Hemoglobin 10.2 g/dL (12.0-16.0); Immature Granulocytes # (auto) 0.04 K/uL (0.00-0.02); Immature Granulocytes % (auto) 0.4 %; Lymphocytes % (auto) 21.2 %; Mean Corpuscular Volume 78.5 fL (80-100); Mean Platelet Volume 9.6 fL (7.4-10.4); Monocytes # (auto) 0.74 K/uL (0.11-0.59); Monocytes % (auto) 7.1 %; Neutrophils # (auto) 7.35 K/uL (1.4-6.5); Neutrophils % (auto) 70.7 %; Platelet Count 298 K/uL (130-400); RDW Coefficient of Variation 19.3 % (11.5-14.5); RDW Standard Deviation 56.3 fL (36.4-46.3); Red Blood Count 4.33 M/uL (4.2-5.4); White Blood Count 10.39 K/uL (4.8-10.8)
--- NOTE | 2018-09-08 14:50 | XRay Report ---
XR chest 1V portable CLINICAL HISTORY: edema, SOB dyspnea COMPARISON STUDY: September 2016 FINDINGS: Mild increase in cardiac size. Increased pulmonary vasculature. Small superimposed infiltra te and effusion left base. IMPRESSION: 1. Congestive heart failure. 2. Superimposed atelectasis versus minimal infiltrate left base. The above report was generated using voice recognition software. It may contain grammatical, syntax or spelling errors. Electronically signed by: Kun Berrios M.D. 09/08/2018 2:49 PM
[2018-09-08] MEDS ORDERED: FUROSEMIDE 40 MG in SYRINGE 0 ML IV ONE (15:27)
[2018-09-08] MEDS ORDERED: VANCOMYCIN HCL 1,750 MG in SODIUM CHLORIDE 0.9% 500 ML IV ONE (15:36)
[2018-09-08] MEDS ORDERED: VANCOMYCIN CONSULT ACTIVE PRN ×2 (15:36→19:13)
[2018-09-08] MEDS ORDERED: VANCOMYCIN CONSULT ACTIVE ONE (15:36)
[2018-09-08] MEDS ORDERED: LEVOFLOXACIN/D5W 750 MG/150 ML BAG IV ONE (16:00)
[2018-09-08] MEDS ORDERED: AZTREONAM 2,000 MG in DEXTROSE 5% 100 ML IV ONE (16:15)
--- NOTE | 2018-09-08 16:58 | History & Physical Report ---
Date of Service September 08, 2018 Assessment & Plan (1) Acute on chronic diastolic (congestive) heart failure: Pt presented to ER from [facility] with reported increased lower extremity edema, face looked puffy, increased dyspnea, increased lethargy this morning. She was given Lasix 40 mg orally today. Later it was reported that pt was noted to be hypoxic with oxygen saturations in the 80s on room air and patient was transported to ER. No reported fevers. Unknown if patient had a cough. In ER Pt afebrile, P: 60, R: 26, BP: 168/64, 93%->87% on 2L NC up to 97% on 3L oxymask. No leukocytosis, BNP: 3630 -In ER pt was given lasix 40mg IV -monitor I's &O's, daily weights -monitor renal functions -echo -reassess volume status in morning for further diuretic dosing -supplemental oxygen as needed (2) Pneumonia: Possible pneumonia No leukocytosis. Afebrile. CXR: Superimposed atelectasis versus minimal infiltrate left base. -In ER was given Vancomycin, Levaquin, aztreonam -pending influenza -dysphagia screen to monitor for any aspiration risk -levaquin, vancomycin renal dosed -duonebs -supplemental oxygen as needed -monitor CBC (3) Hypoxia: Pt developed hypoxia today at [facility]. DDX: fluid overload, possible pneumonia -treatment as above (4) Acute kidney injury superimposed on CKD: Hx CKD III Cr: 2.3. Baseline: 1.2-1.7 -monitor renal functions -renal dose medications -may need to consider nephrology consult (5) Elevated troponin: Troponin: 0.056. Paced rhythm on EKG may be secondary to CKD -trend troponin -echo -EKG in am (6) Hyperkalemia: K: 6.0 specimen was hemolyzed. repeat K was 5.8 -Calcium gluconate, insulin R 10 units, 25ml glucose -will repeat bmp in 4 hours (7) Diabetes mellitus, type II: A1c: 8.4 on 08/29/18 BS -Monitor BSGs -Continue home lantus -Novolog sliding scale (8) Dementia: (9) Altered mental status: Hx dementia. Spoke with pt's daughter Fernanda who reports pt has had decline with mental status over the past 6 months. Also with increased lethargy past 6 months with limited opening eyes with visits by daughter. -continue memantine (10) S/P placement of cardiac pacemaker: paced rhythm on EKG -pacer interrogation (11) HTN (hypertension): -continue amlodipine (12) Dyslipidemia: -continue atorvastatin (13) Anxiety: -continue mirtazapine (14) Gout: -continue allopurinol DVT Prophylaxis -Heparin SQ DNR/DNI as per discussion with pt's daughter who is POA Follows with Dr Toure at [facility] for routine care Pt was seen with Dr Daniel. See addendum History of Present Illness Chief Complaint: hypoxia Primary Care Provider: Lisy Toure MD Pt is 88 y/o F with PMH insulin dependent DM II, HTN, dyslipidemia, chronic diastolic heart failure, hypothyroidism, severe dementia, CKD III, GERD, asthma, s/p pacemaker presented to ER from [facility] for increased edema and hypoxia. History obtained from records and ER staff as patient unable to give any history. It is reported this morning patient was noted to have increased lower extremity edema, face looked puffy, increased dyspnea, increased lethargy. She was seen and given Lasix 40 mg orally today. Later it was reported that patient noted to be hypoxic with oxygen saturations in the 80s on room air and patient was transported to ER. No reported fevers. Unknown if patient had a cough. I contacted pt's daughter who reports that for past 6 months pt has been very lethargic and sleeps most of the time and doesn't usually open her eyes or wake up. Sometimes when she is more alert she knows her daughter, but most of the time she does not recognize family. Pt's daughter states that in May 2018 patient had pneumonia and required nebulizer treatments and oxygen for some time after that however has not been on oxygen recently. Daughter also reports that in past patient has been very sensitive to Lasix as it causes worsening renal functions. hx echo: 2017: EF: 60-65%, no wall motion abnormality, grade II diastolic dysfunction, severe mitral annular calcification Allergies Allergy/AdvReac Type Severity Reaction Status Date / Time amoxicillin Allergy Unknown UNKNOWN Unverified 09/08/18 12:53 cefazolin Allergy Unknown UNKNOWN Unverified 09/08/18 12:53 Cephalosporins Allergy Unknown UNKNOWN Unverified 09/08/18 12:53 clavulanic acid Allergy Unknown UNKNOWN Unverified 09/08/18 12:53 fentanyl Allergy Unknown UNKNOWN Unverified 09/08/18 12:53 Sulfa (Sulfonamide Allergy Unknown UNKNOWN Unverified 09/08/18 12:53 Antibiotics) Home Medications Home Medications Medication Instructions Recorded Confirmed Type allopurinol 100 mg PO DAILY 09/08/18 09/08/18 History amlodipine 5 mg PO DAILY 09/08/18 09/08/18 History aspirin 81 mg PO DAILY 09/08/18 09/08/18 History atorvastatin 20 mg PO HS 09/08/18 09/08/18 History furosemide [Lasix] 40 mg PO DAILY 09/08/18 09/08/18 History insulin aspart U-100 [Novolog 14 unit SUBCUT DIRECTED 09/08/18 09/08/18 History U-100 Insulin aspart] insulin aspart U-100 [Novolog 22 unit SUBCUT UD 09/08/18 09/08/18 History U-100 Insulin aspart] insulin glargine [Basaglar KwikPen 42 unit SUBCUT BID 09/08/18 09/08/18 History U-100 Insulin] levothyroxine 75 mcg PO DAILY 09/08/18 09/08/18 History memantine 7 mg PO DAILY 09/08/18 09/08/18 History miconazole nitrate 1 applic TOPICAL BID 09/08/18 09/08/18 History mirtazapine 30 mg PO HS 09/08/18 09/08/18 History pantoprazole 20 mg PO DAILY 09/08/18 09/08/18 History polyethylene glycol 3350 [Miralax] 17 g PO Q2D 09/08/18 09/08/18 History pregabalin [Lyrica] 75 mg PO BID 09/08/18 09/08/18 History ranitidine HCl 150 mg PO BID 09/08/18 09/08/18 History zinc oxide 1 applic TOPICAL TID 09/08/18 09/08/18 History Past Med/Surg History Medical History History of hysterectomy (Chronic) Gastroparesis (Chronic) CKD (chronic kidney disease), stage III (Chronic) Chronic diastolic heart failure (Chronic) Gout (Chronic) Asthma (Chronic) Diabetes mellitus, type II (Chronic) GERD (gastroesophageal reflux disease) (Chronic) HTN (hypertension) (Chronic) Dyslipidemia (Chronic) Cough Dyspnea on exertion Surgical History History of lumbar surgery (Chronic) 04/2000 History of appendectomy (Chronic) S/P placement of cardiac pacemaker (Chronic) Social History Communication Ability: Impaired Beliefs That Will Affect Care: None Current Living Situation: Detention Feels Safe at Home: Yes Smoking Status: Unknown if ever smoked Hx Alcohol Use: No Hx Substance Use: No Review of Systems Review of Systems: Unobtainable due to cognitive status Physical Exam Physical Exam: General:+lethargic, obese, chronic ill appearing Head: normocephalic, atraumatic Eyes: PERRL, unable to test EOM's, conjunctiva non-injected, anicteric ENT: normal inspection external ears, nose, mucous membranes dry Neck: supple, trachea midline Lungs: On 3L oxymask with O2 sat 96%, R: 22 with slight use of abdomen muscles, diminished, slight wheezing, rales at bases CV: RRR, 1-2+ BLE edema Abd: normal BS, soft, non-tender Ext: no cyanosis, no calf tenderness Neuro: Very lethargic, opens eyes to painful stimuli Skin: warm, dry Results & Data Vital Signs (Past 12 Hours) Vital Signs Temp Pulse Resp BP Pulse Ox 09/08/18 16:01 60 28 H 142/58 H 96 09/08/18 15:30 60 27 H 96 09/08/18 15:19 60 28 H 156/63 H 96 09/08/18 15:00 60 24 97 09/08/18 14:38 60 24 145/108 H 95 09/08/18 14:30 60 23 87 L 09/08/18 14:00 74 21 93 09/08/18 13:30 60 17 87 L 09/08/18 13:20 87 L 09/08/18 13:01 60 18 154/83 H 93 09/08/18 12:41 93 09/08/18 12:35 36.7 C 60 26 H 168/64 H 93 Laboratory Results Short CBC 09/08/18 Range/Units 14:20 WBC 10.39 (4.8-10.8) K/uL Hgb 10.2 L (12.0-16.0) g/dL Hct 34.0 L (37-47) % Plt Count 298 (130-400) K/uL BMP 09/08/18 09/08/18 13:40 16:36 Sodium 135 L 139 Potassium 6.1 H* 5.8 H Chloride 104 105 Carbon Dioxide 29 30 BUN 43 H 43 H Creatinine 2.33 H 2.28 H Glucose 296 H 266 H Calcium 8.1 L 8.5 Cardiac Enzymes 09/08/18 Range/Units 13:40 Troponin I 0.056 H* (0-0.045) ng/ml Liver Function 09/08/18 Range/Units 13:40 Total Bilirubin 0.3 (0.2-1) mg/dl AST 65 H (15-37) U/L ALT 50 (12-78) U/L Alkaline Phosphatase 104 (45-117) U/L Albumin 2.9 L (3.4-5.0) gm/dl Diagnostic Findings CT HEAD: Impression: No acute intracranial abnormality. CXR: IMPRESSION: 1. Congestive heart failure. 2. Superimposed atelectasis versus minimal infiltrate left base. ECG Rate (beats per minute): 67 Findings: + paced rhythm Supervising Physician Co-Signing Physician Notes I have seen and examined the patient and have discussed the case with the provider above. I agree with the assessment and plan as stated with the following exceptions. Ms. Cavazos has dementia and is unable to give me a reliable history. She can answer short questions that are not complex, but not accurately. Large complex instructions or questions invoke a blank stare. She is volume overloaded on exam and was recently started on Lasix as outpatient in the last two days. She has been incontinent and has no Shook yet, so response to Lasix is unclear. Shook was ordered for accurate I/Os and to check for infection. EKG reveals a paced rhythm, and trop is mildly positive with a positive trend up from 0.06 to 0.1. TRS is 4 and she may derive benefit from heparin. However, it is not clear this is an NSTEMI as trop is only mildly elevated and can be this for many reasons including demand ischemia in setting of acute CHF exacerbation and infection as well as renal disease. Will trend another troponin prior to starting heparin but added a full dose ASA now. Daily weights and sodium restriction recommended. Agree with renally dosed abx including Vanc as she has MRSA risk factors including alf residence and recent antibiotic use. Physical exam reveals a woman in NAD with dementia wearing an oxymask at 3L and in no acute distress. Lung exam difficult as patient having difficulty following instruction to take deep breaths, did auscultate crackles at the R base. Good air movmenet without wheezing. No heart murmurs, S1/2 heard. No peripheral edema present or JVD. Bilateral blepharoconjunctivitis. Disoriented wo delirium. Cont with Lasix, abx pending cultures and clinical improvement. Potassium has improved from 6.1 to 4.3 with treatment and with Lasix given today. Uncertain cause. r/o rhabdo-CK pending. DO Fredy (1) Altered mental status Altered mental status type: unspecified Qualified Code(s): R41.82 - Altered mental status, unspecified (2) Pneumonia Laterality: left Lung location: lower lobe of lung Pneumonia type: due to unspecified organism Qualified Code(s): J18.1 - Lobar pneumonia, unspecified organism
[2018-09-08 17:07] LABS: Calcium 8.5 mg/dl (8.5-10.1); Creatinine Clr Calc Pharmacy 17.7 ml/min; Est GFR (African American) 21.4; Est GFR (Non-African American) 18.4; Potassium 5.8 mmol/L (3.5-5.1)
[2018-09-08] MEDS ORDERED: NovoLIN-R INSULIN PER UNIT CHARGE IV STA (17:27)
[2018-09-08] MEDS ORDERED: FUROSEMIDE 40 MG/4 ML VIAL IV ONE (17:51)
[2018-09-08] MEDS ORDERED: ALBUT/IPRATROP 3MG/0.5MG NEB 3 ML VIAL NEB STA (18:22)
[2018-09-08] MEDS ORDERED: CALCIUM GLUCONATE 10% 1,000 MG in SODIUM CHLORIDE 0.9% 50 ML IV STA (18:22)
[2018-09-08] MEDS ORDERED: DEXTROSE 50% 50 ML SYRINGE IV ONE (18:30)
[2018-09-08] MEDS ORDERED: INSULIN HUMAN REGULAR PER UNIT 10 UNITS in SYRINGE 9.9 ML IV ONE (18:30)
[2018-09-08] MEDS ORDERED: GLUCAGON FOR INJ 1 MG VIAL SQ PRN (18:36)
[2018-09-08] MEDS ORDERED: CARBOHYDRATES FOR HYPOGLYCEMIA PO PRN (18:36)
[2018-09-08] MEDS ORDERED: ACETAMINOPHEN 325 MG TAB PO PRN (18:36)
[2018-09-08] MEDS ORDERED: GLUCOSE 40% GEL 15 GM TUBE PO PRN (18:36)
[2018-09-08] MEDS ORDERED: DEXTROSE 50% 50 ML SYRINGE IV PRN (18:36)
[2018-09-08] MEDS ORDERED: POLYETHYLENE (MIRALAX) 17 GM PACK PO PRN (18:36)
[2018-09-08] MEDS ORDERED: GLUCOSE 10 TABS/TUBE PO PRN (18:36)
[2018-09-08] MEDS: ALBUT/IPRATROP 3MG/0.5MG NEB 3 ML VIAL NEB SCH (19:24)
[2018-09-08 19:35] LABS: Prothrombin Time 10.7 Seconds (9.0-12.0)
[2018-09-08] MEDS: BUTT PASTE (ZINC OXIDE 16%) 171 APPLN/57 GM JAR EXT SCH (21:39)
[2018-09-08] MEDS: HEPARIN SOD 5,000 UNIT/0.5 ML VIAL SQ SCH (21:39)
[2018-09-08] MEDS: INSULIN GLARGINE SOLOSTAR 100 UNITS/ML 3 ML PEN SC SCH (21:40)
[2018-09-08] MEDS: ATORVASTATIN 20 MG TAB PO SCH (21:42)
[2018-09-08] MEDS: MIRTAZAPINE TAB 15 MG TAB PO SCH (21:42)
[2018-09-08] MEDS: MICONAZOLE NITRATE 2% CR 30 GM TUBE TOP SCH (21:43)
[2018-09-08] MEDS: PREGABALIN 75 MG CAP PO SCH (21:45)
[2018-09-08] MEDS: INSULIN ASPART 100 UNITS/ML 3 ML PEN SC SCH (21:46)
[2018-09-08 21:53] LABS: BUN Creatinine Ratio 20.2 (10-20); Calcium 8.6 mg/dl (8.5-10.1); Creatinine Clr Calc Pharmacy 19.9 ml/min; Est GFR (African American) 23.5; Est GFR (Non-African American) 20.2; Potassium 4.3 mmol/L (3.5-5.1)
[2018-09-08 21:54] LABS: Troponin I 0.109 ng/ml (0-0.045)
[2018-09-08] MEDS ORDERED: ASPIRIN 81 MG CHEW PO STA (22:14)
[2018-09-08] MEDS: TRIMETHOPRIM/POLYMYXIN B OPB SCH (23:07)
--- OUTSIDE RECORDS SUMMARY | 2018-09-08 23:17 | External Medical Summary | Continuity of Care Document ---
:1930 Author Name Tiana Porter Address Unavailable Unavailable , Care Team Providers Name Role Phone Leon DO Unavailable [email or web address] [email or web address], UNKNOWN Unavailable Unavailable Problems Active medical history not documented Allergies and Adverse Reactions Allergy history not documented Medications Medications not documented Procedures Procedures not documented Immunizations Immunizations not documented Plan of Treatment Planned Observations Planned Goals not documented Results No Known Results Results not documented
[2018-09-09] LABS: Influenza A virus by PCR Neg for Influ A (Neg); Influenza B virus by PCR Neg for Influ B (Neg)
[2018-09-09 01:55] LABS: Basophils # (auto) 0.03 K/uL (0-0.2); Basophils % (auto) 0.2 %; Eosinophils # (auto) 0.18 K/uL (0-0.5); Eosinophils % (auto) 1.3 %; Hematocrit (blood only) 33.5 % (37-47); Hemoglobin 10.1 g/dL (12.0-16.0); Immature Granulocytes # (auto) 0.05 K/uL (0.00-0.02); Immature Granulocytes % (auto) 0.4 %; Lymphocytes # (auto) 1.14 K/uL (1.2-3.4); Lymphocytes % (auto) 8.4 %; Mean Corpuscular Hgb Conc 30.1 g/dL (32-36); Mean Platelet Volume 9.8 fL (7.4-10.4); Monocytes # (auto) 0.91 K/uL (0.11-0.59); Monocytes % (auto) 6.7 %; Neutrophils # (auto) 11.23 K/uL (1.4-6.5); Nucleated RBC # (auto) 0.03 K/uL (0-0); Nucleated RBC % (auto) 0.2 %; Platelet Count 274 K/uL (130-400); RDW Coefficient of Variation 19.1 % (11.5-14.5); Red Blood Count 4.24 M/uL (4.2-5.4); White Blood Count 13.54 K/uL (4.8-10.8)
[2018-09-09] MEDS: TRIMETHOPRIM/POLYMYXIN B OPB SCH ×7 (01:55→23:10)
[2018-09-09 02:13] LABS: BUN Creatinine Ratio 21.7 (10-20); Calcium 8.4 mg/dl (8.5-10.1); Creatinine Clr Calc Pharmacy 20.3 ml/min; Est GFR (Non-African American) 20.7; Potassium 4.7 mmol/L (3.5-5.1)
[2018-09-09 02:27] LABS: Troponin I 0.09 ng/ml (0-0.045)
[2018-09-09 02:52] LABS: Appearance Urine Clear (Clear); Bacteria Urine Automated Negative (Negative); Bilirubin Urine Negative (Negative); Blood Urine Trace (Negative); Color Urine Yellow; Epithelial Cell Urine Auto 0-5 /lpf (0-5); Glucose Urine UA Negative (Negative); Ketones Urine Negative (Negative); Leukocyte Esterase Urine Negative (Negative); Nitrite Urine Negative (Negative); Protein Urine Trace (Negative); RBC Urine Automated 0-4 /hpf (0-4); Specific Gravity Urine 1.016 (1.000-1.030); Urobilinogen Urine Negative (Negative)
[2018-09-09] MEDS: LEVOTHYROXINE SODIUM 75 MCG TABLET PO SCH (05:32)
[2018-09-09] MEDS ORDERED: PERFLUTREN LIPID MICROSPHERE (DEFINITY) IV ONE (06:49)
[2018-09-09] MEDS: ALBUT/IPRATROP 3MG/0.5MG NEB 3 ML VIAL NEB SCH ×4 (07:04→18:59)
[2018-09-09] MEDS: INSULIN ASPART 100 UNITS/ML 3 ML PEN SC SCH ×4 (08:54→20:27)
[2018-09-09] MEDS ORDERED: FUROSEMIDE 40 MG in SYRINGE 0 ML IV SCH (09:00)
[2018-09-09] MEDS ORDERED: POLYETHYLENE (MIRALAX) 17 GM PACK PO SCH (09:00)
[2018-09-09] MEDS: BUTT PASTE (ZINC OXIDE 16%) 171 APPLN/57 GM JAR EXT SCH ×3 (09:40→20:31)
[2018-09-09] MEDS: HEPARIN SOD 5,000 UNIT/0.5 ML VIAL SQ SCH ×2 (09:40→20:35)
[2018-09-09] MEDS: MICONAZOLE NITRATE 2% CR 30 GM TUBE TOP SCH ×2 (09:41→20:35)
--- NOTE | 2018-09-09 10:15 | Cardiology Consultation ---
Date of Consultation September 09, 2018 Assessment & Plan (1) Acute on chronic diastolic (congestive) heart failure: Patient appears volume overloaded. Has received 40 mg of furosemide this morning. I am going to place a hold on further furosemide, and I have ordered a dose of IV albumin given her low protein state on blood work. She has been on the same dose of amlodipine for years per her outside record. Reassess renal function tomorrow, and likely start low-dose furosemide perhaps 20 mg IV every 6 hours with albumin to help mobilize her fluid. (2) Altered mental status: Agree with empiric antibiotics for now. Urinalysis does not suggest urinary tract infection. Agree with empiric treatment for pneumonia as the chest x-ray is somewhat equivocal. Is reassuring that her CT is within normal limits. Underlying aspiration may be an issue. (3) Acute kidney injury superimposed on CKD: Monitor kidney function as noted above. Great subcutaneous heparin for DVT prophylaxis. History of Present Illness Attending Physician: Ryan Solo MD History of Present Illness Shari Hernandez is an 88 year old female seen in cardiology consultation per the request of Regina Corbett PA-C and [facility]. The patient was transferred to the emergency department at [facility] yesterday from [facility] for concerns of increasing facial and lower extremity edema, and lethargy. Per review of the assisted notes she has been recently treated with antibiotics for pneumonia last month. She has an apparent past history of diastolic heart failure. She is not on chronic diuretic therapy due to history of tenuous renal insufficiency while on diuretics. She been observed yesterday to be more lethargic and did not eat as much breakfast. CT of the brain was negative for acute intracranial change. This morning, the nurse notes the patient is not arousable to verbal or physical stimuli. Her pulse oximetry is stable on 2 L of supplemental oxygen with pulse oximetry readings of 95% or greater at present. She has received IV furosemide and has had a mild amount of urine output. Her creatinine which typically is in the range of 1.2-1.4 as an outpatient has increased to 2.28, 2.11, and 2.07. Patient is not able to provide history. She does have a dual-chamber [employer] permanent pacemaker that was interrogated last evening. The information available in the interrogation describes that the device was implanted in January 2014. I do not have the information regarding the implanting physician or institution, but the patient does not follow with [facility] cardiology. The generator longevity is in the range of 8.6 to 9.3 years. The predominant rhythm is sinus rhythm. Patient is AV sequential paced 97% the time and a sensed ventricular paced 2.9% the time. Allergies Allergy/AdvReac Type Severity Reaction Status Date / Time amoxicillin Allergy Unknown UNKNOWN Unverified 09/08/18 12:53 cefazolin Allergy Unknown UNKNOWN Unverified 09/08/18 12:53 Cephalosporins Allergy Unknown UNKNOWN Unverified 09/08/18 12:53 clavulanic acid Allergy Unknown UNKNOWN Unverified 09/08/18 12:53 fentanyl Allergy Unknown UNKNOWN Unverified 09/08/18 12:53 Sulfa (Sulfonamide Allergy Unknown UNKNOWN Unverified 09/08/18 12:53 Antibiotics) Home Medications Home Medications Medication Instructions Recorded Confirmed Type allopurinol 100 mg PO DAILY 09/08/18 09/08/18 History amlodipine 5 mg PO DAILY 09/08/18 09/08/18 History aspirin 81 mg PO DAILY 09/08/18 09/08/18 History atorvastatin 20 mg PO HS 09/08/18 09/08/18 History furosemide [Lasix] 40 mg PO DAILY 09/08/18 09/08/18 History insulin aspart U-100 [Novolog 14 unit SUBCUT DIRECTED 09/08/18 09/08/18 History U-100 Insulin aspart] insulin aspart U-100 [Novolog 22 unit SUBCUT UD 09/08/18 09/08/18 History U-100 Insulin aspart] insulin glargine [Basaglar KwikPen 42 unit SUBCUT BID 09/08/18 09/08/18 History U-100 Insulin] levothyroxine 75 mcg PO DAILY 09/08/18 09/08/18 History memantine 7 mg PO DAILY 09/08/18 09/08/18 History miconazole nitrate 1 applic TOPICAL BID 09/08/18 09/08/18 History mirtazapine 30 mg PO HS 09/08/18 09/08/18 History pantoprazole 20 mg PO DAILY 09/08/18 09/08/18 History polyethylene glycol 3350 [Miralax] 17 g PO Q2D 09/08/18 09/08/18 History pregabalin [Lyrica] 75 mg PO BID 09/08/18 09/08/18 History ranitidine HCl 150 mg PO BID 09/08/18 09/08/18 History zinc oxide 1 applic TOPICAL TID 09/08/18 09/08/18 History Patient History Medical History History of hysterectomy (Chronic) Gastroparesis (Chronic) CKD (chronic kidney disease), stage III (Chronic) Chronic diastolic heart failure (Chronic) Gout (Chronic) Asthma (Chronic) Diabetes mellitus, type II (Chronic) GERD (gastroesophageal reflux disease) (Chronic) HTN (hypertension) (Chronic) Dyslipidemia (Chronic) Cough Dyspnea on exertion Surgical History History of lumbar surgery (Chronic) 04/2000 History of appendectomy (Chronic) S/P placement of cardiac pacemaker (Chronic) Social History Communication Ability: Impaired Beliefs That Will Affect Care: None Current Living Situation: Jail Feels Safe at Home: Yes Smoking Status: Unknown if ever smoked Hx Alcohol Use: No Hx Substance Use: No Review of Systems Review of Systems: Review of systems unobtainable due to the patient's lethargic mental status Physical Exam Constitutional: + ill appearing Neck: trachea midline, no thyromegaly + trachea not midline Respiratory: Auscultation: no rales (Mildly diminished breath sounds at the bases) Cardiovascular: Extremities: + edema (1+ lower extremity edema of the lower legs) Gastrointestinal (Abdomen): normal bowel sounds, soft, nontender, no hepatosplenomegaly Results & Data Vital Signs (Past 12 Hours) Vital Signs Temp Pulse Resp BP Pulse Ox 09/09/18 07:16 60 18 95 09/09/18 07:06 37.1 C 60 22 136/67 95 09/09/18 03:11 37.2 C 60 20 125/56 L 97 09/08/18 23:12 36.7 C 60 18 131/61 96 Laboratory Results EKG reveals AV sequential paced rhythm. Cardiac Enzymes 09/08/18 09/08/18 09/09/18 Range/Units 13:40 21:07 01:41 AST 65 H (15-37) U/L Troponin I 0.056 H* 0.109 H* 0.090 H* (0-0.045) ng/ml Coagulation 09/08/18 Range/Units 13:55 PT 10.7 (9.0-12.0) Seconds CBC 09/08/18 09/09/18 Range/Units 14:20 01:41 WBC 10.39 13.54 H (4.8-10.8) K/uL RBC 4.33 4.24 (4.2-5.4) M/uL Hgb 10.2 L 10.1 L (12.0-16.0) g/dL Hct 34.0 L 33.5 L (37-47) % Plt Count 298 274 (130-400) K/uL Neut # (Auto) 7.35 H 11.23 H (1.4-6.5) K/uL Lymph # (Auto) 2.20 1.14 L (1.2-3.4) K/uL Henry # (Auto) 0.74 H 0.91 H (0.11-0.59) K/uL Eos # (Auto) 0.02 0.18 (0-0.5) K/uL Baso # (Auto) 0.04 0.03 (0-0.2) K/uL Comprehensive Metabolic Panel 09/08/18 09/08/18 09/08/18 Range/Units 13:40 16:36 21:07 Sodium 135 L 139 141 (136-145) mmol/L Potassium 6.1 H* 5.8 H 4.3 D (3.5-5.1) mmol/L Chloride 104 105 106 (98-107) mmol/L Carbon Dioxide 29 30 28 (21-32) mmol/L BUN 43 H 43 H 43 H (7-18) mg/dl Creatinine 2.33 H 2.28 H 2.11 H (0.6-1.2) mg/dl Glucose 296 H 266 H 176 H (70-99) mg/dl Calcium 8.1 L 8.5 8.6 (8.5-10.1) mg/dl AST 65 H (15-37) U/L ALT 50 (12-78) U/L Alkaline Phosphatase 104 (45-117) U/L Total Protein 7.6 (6.4-8.2) gm/dl Albumin 2.9 L (3.4-5.0) gm/dl 09/09/18 Range/Units 01:41 Sodium 139 (136-145) mmol/L Potassium 4.7 (3.5-5.1) mmol/L Chloride 107 (98-107) mmol/L Carbon Dioxide 31 (21-32) mmol/L BUN 45 H (7-18) mg/dl Creatinine 2.07 H (0.6-1.2) mg/dl Glucose 115 H (70-99) mg/dl Calcium 8.4 L (8.5-10.1) mg/dl AST (15-37) U/L ALT (12-78) U/L Alkaline Phosphatase (45-117) U/L Total Protein (6.4-8.2) gm/dl Albumin (3.4-5.0) gm/dl Intake and Output 09/08/18 09/09/18 09/09/18 22:59 06:59 14:59 Intake Total 733.333 / 733.333 Output Total 203 / 353 150 / 353 Balance 530.333 / 380.333 -150 / 380.333 Intake: IV 483.333 / 483.333 Azactam 2,000 mg In D5 100 ml @ 110 / 110 110 mls/hr IV ONE ONE Rx#: [id number] Calcium Gluconate 10% 1,000 mg 60 / 60 In Nss 50 ml @ 240 mls/hr IV NOW STA Rx#:[id number] LEVAQUIN/D5W 750 mg In 150 ml @ 150 / 150 100 mls/hr IV ONE ONE Rx#: [id number] Vancomycin HCl 1,750 mg In Nss 163.333 / 163.333 500 ml @ 200 mls/hr IV NOW ONE Rx#:[id number] Oral 250 / 250 Output: Stool 1 / 1 Urine/Stool Mix 1 / Urine Amount (Catheter) 200 / 350 150 / 350 Shook/Indwelling 200 / 350 150 / 350 # Bowel Movements 1 / 1 Other: Other Intake Source SIPS # Unmeasured Voids 3 Weight 88.6 kg 88.2 kg Chest x-ray with left lower lobe atelectasis versus infiltrate versus small pleural effusion. On her echocardiogram there does appear to be a small left pleural effusion. Echocardiogram performed today revealed normal LVEF with grade 2 diastolic dysfunction, borderline to mild aortic valve stenosis, mild tricuspid regurgitation with mild pulmonary artery systolic hypertension Medications Administered Current Inpatient Medications Acetaminophen (Tylenol) 650 mg PO Q4H PRN PRN Reason: Pain or Fever Stop: 10/08/18 18:35 Albuterol (Duoneb) 3 ml NEB QIDR DAWN Stop: 10/08/18 19:59 Last Admin: 09/09/18 07:04 Dose: 3 ml Documented by: Allopurinol (Zyloprim) 100 mg PO DAILY DAWN Stop: 10/09/18 08:59 Amlodipine Besylate (Norvasc) 5 mg PO DAILY DAWN Stop: 10/09/18 08:59 Aspirin (Ecotrin Ectab) 81 mg PO DAILY DAWN Stop: 10/09/18 08:59 Atorvastatin Calcium (Lipitor) 20 mg PO HS DAWN Stop: 10/08/18 20:59 Last Admin: 09/08/18 21:42 Dose: 20 mg Documented by: Dextrose (Dextrose 50%) 25 - 50 ml IV UD PRN; Protocol PRN Reason: Hypoglycemia Protocol Stop: 10/08/18 18:35 Glucagon (Glucagen) 1 mg SQ UD PRN; Protocol PRN Reason: Hypoglycemia Protocol Stop: 10/08/18 18:35 Glucose (Glucose 40%) 15 - 30 gm PO UD PRN; Protocol PRN Reason: Hypoglycemia Protocol Stop: 10/08/18 18:35 Glucose (Dex4 Glucose) 4 - 8 tabs PO UD PRN; Protocol PRN Reason: Hypoglycemia Protocol Stop: 10/08/18 18:35 Heparin Sodium (Porcine) (Heparin Sodium (Porcine)) 5,000 units SQ Q12 DAWN Stop: 10/08/18 20:59 Last Admin: 09/09/18 09:40 Dose: 5,000 units Documented by: Levofloxacin/Dextrose (Levaquin/D5w) 500 mg in 100 mls @ 100 mls/hr IV Q48H DAWN Stop: 09/15/18 17:59 Albumin Human (Albumin 25%) 50 mls @ 50 mls/hr IV ONE DAWN Stop: 09/12/18 10:14 Insulin Aspart (Novolog Flexpen) 0 units SC ACHS DAWN Stop: 10/08/18 20:59 Last Admin: 09/09/18 08:54 Dose: Not Given Documented by: Insulin Glargine (Lantus Solostar Pen) 42 units SC BID DAWN Stop: 10/08/18 20:59 Last Admin: 09/08/18 21:40 Dose: 42 units Documented by: Levothyroxine Sodium (Synthroid) 75 mcg PO DAILYBB DAWN Stop: 10/09/18 06:29 Last Admin: 09/09/18 05:32 Dose: 75 mcg Documented by: Miconazole Nitrate (Monistat Derm) 1 appln TOP BID [facility] Stop: 10/08/18 20:59 Last Admin: 09/09/18 09:41 Dose: 1 appln Documented by: Mirtazapine (Remeron) 30 mg PO HS [facility] Stop: 10/08/18 20:59 Last Admin: 09/08/18 21:42 Dose: 30 mg Documented by: Miscellaneous (Order Awaiting Action) 1 ea N/A QS DAWN Stop: 10/09/18 00:00 Last Admin: 09/09/18 08:55 Dose: Not Given Documented by: Miscellaneous (Carbohydrates For Hypoglycemia) 15 - 30 gm PO UD PRN PRN Reason: Hypoglycemia Treatment Stop: 10/08/18 18:35 Miscellaneous Information (Consult) 1 ea N/A UD PRN PRN Reason: Consult Stop: 10/08/18 19:12 Pantoprazole Sodium (Protonix) 40 mg PO DAILY [facility] Stop: 10/09/18 08:59 Petrolatum (Butt Paste) 1 appln EXT TID [facility] Stop: 10/08/18 20:59 Last Admin: 09/09/18 09:40 Dose: 1 appln Documented by: Polyethylene Glycol (Miralax Powder Packet) 17 gm PO DAILY PRN PRN Reason: Constipation Stop: 10/08/18 18:35 Polyethylene Glycol (Miralax Powder Packet) 17 gm PO Q2D@0900 [facility] Stop: 10/10/18 08:59 Polymyxin/Trimethoprim Sulfate (Polytrim) 1 drops OPB Q3H [facility] Stop: 09/15/18 22:29 Last Admin: 09/09/18 04:49 Dose: 1 drops Documented by: Pregabalin (Lyrica) 75 mg PO BID [facility] Stop: 10/08/18 20:59 Last Admin: 09/08/18 21:45 Dose: 75 mg Documented by: Ranitidine HCl (Zantac) 150 mg PO BID [facility] Stop: 10/08/18 20:59 Last Admin: 09/08/18 21:41 Dose: 150 mg Documented by: (1) Altered mental status Altered mental status type: unspecified Qualified Code(s): R41.82 - Altered mental status, unspecified
[2018-09-09] MEDS ORDERED: ALBUMIN 25% 50 ML IV ONE (11:00)
[2018-09-09] MEDS: PANTOprazole 40 MG TAB PO SCH (11:44)
[2018-09-09] MEDS: AMLODIPINE BESYLATE 5 MG TAB PO SCH (11:44)
[2018-09-09] MEDS: ASPIRIN 81 MG ECTAB PO SCH (11:44)
[2018-09-09] MEDS: PREGABALIN 75 MG CAP PO SCH ×2 (11:44→20:46)
[2018-09-09] MEDS: ALLOPURINOL 100 MG TAB PO SCH (11:45)
--- NOTE | 2018-09-09 12:40 | Hospitalist Progress Note ---
Date of Service September 09, 2018 Assessment & Plan (1) Acute on chronic diastolic (congestive) heart failure: Patient presented with dyspnea and hypoxia. Chest x-ray demonstrated cardiomegaly and CHF. Echocardiogram demonstrated mild concentric LVH, normal left ventricular wall motion and systolic function with an LVEF of 55-60%, grade II diastolic dysfunction. Mild aortic stenosis, mild tricuspid regurgitation, mild pulmonary hypertension were also noted. Acute on chronic left ventricular diastolic heart failure. Receiving IV furosemide. Cardiology consulted. (2) Elevated troponin: Serum troponin 0.056, 0.109, 0.090. Elevated troponins could be secondary to CHF or demand ischemia. Cardiology consulted. (3) HTN (hypertension): Continue amlodipine. (4) Abnormal chest x-ray: Chest x-ray demonstrated cardiomegaly, pulmonary edema, density left base suggesting atelectasis or infiltrate. Afebrile. Mild leukocytosis. Normal procalcitonin. Nasopharyngeal swab for influenza A/B-. Nasal swab for MRSA colonization negative. Blood cultures negative so far. Procalcitonin. May or may not have pneumonia. Has reported allergies to amoxicillin, cefazolin, sulfa (details unknown). MRSA pneumonia very unlikely with negative MRSA screen. Discontinue vancomycin. Patient currently receiving levofloxacin. Probably best to avoid quinolones due to dementia and cardiovascular risks. Discontinue levofloxacin. Do not feel that there is clear indication of pneumonia at this time. Will stop all antibiotics and follow. (5) Hypoxia: O2 sats as low as 87%. Hypoxia most likely secondary to CHF and/or atelectasis. Continue supplemental oxygen as necessary. (6) GERD (gastroesophageal reflux disease): Continue pantoprazole. (7) Acute kidney injury superimposed on CKD: Serum creatinine 2.33 compared to baseline of 1.4-1.8 in 2017. Creatinine today = 2.07. Titrate diuretics. Avoid potential nephrotoxins when able. Follow. (8) Hyperkalemia: Serum potassium at time of admission was 6.1. Hyperkalemia associated with acute kidney injury. Received calcium gluconate, insulin + dextrose, furosemide. Potassium today = 4.7. Follow. (9) Diabetes mellitus, type II: Random blood sugar at time of admission was 296. Fasting blood sugar this morning = 73. Continue Lantus/NovoLog per protocol. (10) Dyslipidemia: Continue atorvastatin. (11) Hypothyroidism: Continue levothyroxine. (12) Altered mental status: Underlying dementia with worsening confusion. Head CT negative. Probable delirium/metabolic encephalopathy secondary to acute medical problems. Management of underlying problems as discussed above. Avoid anticholinergic medications and other meds with [employer] side effects whenever possible. (13) Dementia: Advanced dementia per history. Consider stopping memantine if not clearly offering benefit. Ongoing delirium monitoring/management. (14) DVT prophylaxis: SQ heparin. Ambulate as tolerated. (15) Discharge planning issues: Anticipated return to [facility]. Family Medicine follow-up with Dr. Toure. Subjective Recheck for multiple problems. Patient seen in their room around 0840. Admitted yesterday with SOB, hypoxia, confusion. Patient is very somnolent this morning and unable to offer any information. Review of Systems: Unable to obtain due to neuro status. Physical Exam Constitutional: + ill appearing; no acute distress Respiratory: no respiratory distress Auscultation: + diminished lung sounds (at bases, poor inspiratory effort); no rhonchi and no wheezes Cardiovascular: Rate/Rhythm: regular rate and regular rhythm Heart Sounds: no gallop, no murmur and no cardiac rub Vessels: no JVD Extremities: + edema (1-2+ pretibial); no calf tenderness Gastrointestinal (Abdomen): normal bowel sounds, soft, nontender, no hepatosplenomegaly Skin: no rashes, warm and dry Psychiatric: Orientation: + not alert (somnolent) Results & Data Vital Signs (Past 12 Hours) Vital Signs Temp Pulse Resp BP Pulse Ox 09/09/18 11:01 60 18 97 09/09/18 10:57 36.5 C 60 19 156/64 H 97 09/09/18 07:16 60 18 95 09/09/18 07:06 37.1 C 60 22 136/67 95 09/09/18 03:11 37.2 C 60 20 125/56 L 97 Laboratory Results Laboratory Results - last 24 hr 09/08/18 09/08/18 09/08/18 13:40 13:55 13:55 WBC RBC Hgb Hct MCV MCH MCHC RDW Std Deviation RDW Coeff of Tristen Plt Count MPV Immature Gran % (Auto) Neut % (Auto) Lymph % (Auto) [place] % (Auto) Eos % (Auto) Baso % (Auto) Immature Gran # (Auto) Neut # (Auto) Lymph # (Auto) [place] # (Auto) Eos # (Auto) Baso # (Auto) Absolute Nucleated RBC Nucleated RBC % (auto) PT 10.7 INR 1.0 Sodium 135 L Potassium 6.1 H* Chloride 104 Carbon Dioxide 29 Anion Gap 3.0 BUN 43 H Creatinine 2.33 H Est Cr Clr Drug Dosing 17.3 Est GFR ( Amer) 20.8 Est GFR (Non-Af Amer) 17.9 BUN/Creatinine Ratio 18.5 Glucose 296 H POC Glucose Calcium 8.1 L Total Bilirubin 0.3 AST 65 H ALT 50 Alkaline Phosphatase 104 Total Creatine Kinase Troponin I 0.056 H* NT-Pro-B Natriuret Pep 3630 H Total Protein 7.6 Albumin 2.9 L Globulin 4.7 H Albumin/Globulin Ratio 0.6 L Procalcitonin 0.12 Specimen Hemolysis Urine Color Urine Appearance Urine pH Ur Specific [place] Urine Protein Urine Glucose (UA) Urine Ketones Urine Blood Urine Nitrite Urine Bilirubin Urine Urobilinogen Ur Leukocyte Esterase Urine WBC (Auto) Urine RBC (Auto) U Hyaline Cast (Auto) U Epithel Cells (Auto) Urine Bacteria (Auto) Nasal Screen MRSA (PCR) Random Vancomycin Influenza Type A (PCR) Influenza Type B (PCR) 09/08/18 09/08/18 09/08/18 14:20 16:28 16:36 WBC 10.39 RBC 4.33 Hgb 10.2 L Hct 34.0 L MCV 78.5 L MCH 23.6 L MCHC 30.0 L RDW Std Deviation 56.3 H RDW Coeff of Tristen 19.3 H Plt Count 298 MPV 9.6 Immature Gran % (Auto) 0.4 Neut % (Auto) 70.7 Lymph % (Auto) 21.2 [place] % (Auto) 7.1 Eos % (Auto) 0.2 Baso % (Auto) 0.4 Immature Gran # (Auto) 0.04 H Neut # (Auto) 7.35 H Lymph # (Auto) 2.20 [place] # (Auto) 0.74 H Eos # (Auto) 0.02 Baso # (Auto) 0.04 Absolute Nucleated RBC Nucleated RBC % (auto) PT INR Sodium 139 Potassium 5.8 H Chloride 105 Carbon Dioxide 30 Anion Gap 4.0 BUN 43 H Creatinine 2.28 H Est Cr Clr Drug Dosing 17.7 Est GFR ( Amer) 21.4 Est GFR (Non-Af Amer) 18.4 BUN/Creatinine Ratio 19.0 Glucose 266 H POC Glucose Calcium 8.5 Total Bilirubin AST ALT Alkaline Phosphatase Total Creatine Kinase Troponin I NT-Pro-B Natriuret Pep Total Protein Albumin Globulin Albumin/Globulin Ratio Procalcitonin Specimen Hemolysis Urine Color Urine Appearance Urine pH Ur Specific [place] Urine Protein Urine Glucose (UA) Urine Ketones Urine Blood Urine Nitrite Urine Bilirubin Urine Urobilinogen Ur Leukocyte Esterase Urine WBC (Auto) Urine RBC (Auto) U Hyaline Cast (Auto) U Epithel Cells (Auto) Urine Bacteria (Auto) Nasal Screen MRSA (PCR) Negative Random Vancomycin Influenza Type A (PCR) Influenza Type B (PCR) 09/08/18 09/08/18 09/08/18 20:30 21:07 Unknown WBC RBC Hgb Hct MCV MCH MCHC RDW Std Deviation RDW Coeff of Tristen Plt Count MPV Immature Gran % (Auto) Neut % (Auto) Lymph % (Auto) [place] % (Auto) Eos % (Auto) Baso % (Auto) Immature Gran # (Auto) Neut # (Auto) Lymph # (Auto) [place] # (Auto) Eos # (Auto) Baso # (Auto) Absolute Nucleated RBC Nucleated RBC % (auto) PT INR Sodium 141 Potassium 4.3 D Chloride 106 Carbon Dioxide 28 Anion Gap 8.0 BUN 43 H Creatinine 2.11 H Est Cr Clr Drug Dosing 19.9 Est GFR ( Amer) 23.5 Est GFR (Non-Af Amer) 20.2 BUN/Creatinine Ratio 20.2 H Glucose 176 H POC Glucose 203 H Calcium 8.6 Total Bilirubin AST ALT Alkaline Phosphatase Total Creatine Kinase 51 Troponin I 0.109 H* NT-Pro-B Natriuret Pep Total Protein Albumin Globulin Albumin/Globulin Ratio Procalcitonin Specimen Hemolysis Urine Color Urine Appearance Urine pH Ur Specific [place] Urine Protein Urine Glucose (UA) Urine Ketones Urine Blood Urine Nitrite Urine Bilirubin Urine Urobilinogen Ur Leukocyte Esterase Urine WBC (Auto) Urine RBC (Auto) U Hyaline Cast (Auto) U Epithel Cells (Auto) Urine Bacteria (Auto) Nasal Screen MRSA (PCR) Random Vancomycin Influenza Type A (PCR) Neg for Influ A Influenza Type B (PCR) Neg for Influ B 09/09/18 09/09/18 09/09/18 01:41 01:41 01:41 WBC 13.54 H RBC 4.24 Hgb 10.1 L Hct 33.5 L MCV 79.0 L MCH 23.8 L MCHC 30.1 L RDW Std Deviation 55.0 H RDW Coeff of Tristen 19.1 H Plt Count 274 MPV 9.8 Immature Gran % (Auto) 0.4 Neut % (Auto) 83.0 Lymph % (Auto) 8.4 [place] % (Auto) 6.7 Eos % (Auto) 1.3 Baso % (Auto) 0.2 Immature Gran # (Auto) 0.05 H Neut # (Auto) 11.23 H Lymph # (Auto) 1.14 L [place] # (Auto) 0.91 H Eos # (Auto) 0.18 Baso # (Auto) 0.03 Absolute Nucleated RBC 0.03 H Nucleated RBC % (auto) 0.2 PT INR Sodium 139 Potassium 4.7 Chloride 107 Carbon Dioxide 31 Anion Gap 1.0 L BUN 45 H Creatinine 2.07 H Est Cr Clr Drug Dosing 20.3 Est GFR ( Amer) 24.0 Est GFR (Non-Af Amer) 20.7 BUN/Creatinine Ratio 21.7 H Glucose 115 H POC Glucose Calcium 8.4 L Total Bilirubin AST ALT Alkaline Phosphatase Total Creatine Kinase Troponin I 0.090 H* NT-Pro-B Natriuret Pep Total Protein Albumin Globulin Albumin/Globulin Ratio Procalcitonin Specimen Hemolysis Urine Color Urine Appearance Urine pH Ur Specific [place] Urine Protein Urine Glucose (UA) Urine Ketones Urine Blood Urine Nitrite Urine Bilirubin Urine Urobilinogen Ur Leukocyte Esterase Urine WBC (Auto) Urine RBC (Auto) U Hyaline Cast (Auto) U Epithel Cells (Auto) Urine Bacteria (Auto) Nasal Screen MRSA (PCR) Random Vancomycin 21.4 Influenza Type A (PCR) Influenza Type B (PCR) 09/09/18 09/09/18 09/09/18 02:30 07:16 07:39 WBC RBC Hgb Hct MCV MCH MCHC RDW Std Deviation RDW Coeff of Tristen Plt Count MPV Immature Gran % (Auto) Neut % (Auto) Lymph % (Auto) [place] % (Auto) Eos % (Auto) Baso % (Auto) Immature Gran # (Auto) Neut # (Auto) Lymph # (Auto) [place] # (Auto) Eos # (Auto) Baso # (Auto) Absolute Nucleated RBC Nucleated RBC % (auto) PT INR Sodium Potassium Chloride Carbon Dioxide Anion Gap BUN Creatinine Est Cr Clr Drug Dosing Est GFR ( Amer) Est GFR (Non-Af Amer) BUN/Creatinine Ratio Glucose POC Glucose 73 74 Calcium Total Bilirubin AST ALT Alkaline Phosphatase Total Creatine Kinase Troponin I NT-Pro-B Natriuret Pep Total Protein Albumin Globulin Albumin/Globulin Ratio Procalcitonin Specimen Hemolysis Urine Color Yellow Urine Appearance Clear Urine pH 5.0 Ur Specific [place] 1.016 Urine Protein Trace H Urine Glucose (UA) Negative Urine Ketones Negative Urine Blood Trace H Urine Nitrite Negative Urine Bilirubin Negative Urine Urobilinogen Negative Ur Leukocyte Esterase Negative Urine WBC (Auto) 1-5 Urine RBC (Auto) 0-4 U Hyaline Cast (Auto) 1-5 U Epithel Cells (Auto) 0-5 Urine Bacteria (Auto) Negative Nasal Screen MRSA (PCR) Random Vancomycin Influenza Type A (PCR) Influenza Type B (PCR) 09/09/18 09/09/18 11:37 11:39 WBC RBC Hgb Hct MCV MCH MCHC RDW Std Deviation RDW Coeff of Tristen Plt Count MPV Immature Gran % (Auto) Neut % (Auto) Lymph % (Auto) [place] % (Auto) Eos % (Auto) Baso % (Auto) Immature Gran # (Auto) Neut # (Auto) Lymph # (Auto) [place] # (Auto) Eos # (Auto) Baso # (Auto) Absolute Nucleated RBC Nucleated RBC % (auto) PT INR Sodium Potassium Chloride Carbon Dioxide Anion Gap BUN Creatinine Est Cr Clr Drug Dosing Est GFR ( Amer) Est GFR (Non-Af Amer) BUN/Creatinine Ratio Glucose POC Glucose 56 L* 56 L* Calcium Total Bilirubin AST ALT Alkaline Phosphatase Total Creatine Kinase Troponin I NT-Pro-B Natriuret Pep Total Protein Albumin Globulin Albumin/Globulin Ratio Procalcitonin Specimen Hemolysis Urine Color Urine Appearance Urine pH Ur Specific [place] Urine Protein Urine Glucose (UA) Urine Ketones Urine Blood Urine Nitrite Urine Bilirubin Urine Urobilinogen Ur Leukocyte Esterase Urine WBC (Auto) Urine RBC (Auto) U Hyaline Cast (Auto) U Epithel Cells (Auto) Urine Bacteria (Auto) Nasal Screen MRSA (PCR) Random Vancomycin Influenza Type A (PCR) Influenza Type B (PCR) (1) Altered mental status Altered mental status type: unspecified Qualified Code(s): R41.82 - Altered mental status, unspecified
[2018-09-09] MEDS: DEXTROSE 5% 1,000 ML IV SCH (14:09)
[2018-09-09] MEDS: ATORVASTATIN 20 MG TAB PO SCH (20:34)
[2018-09-09] MEDS: MIRTAZAPINE TAB 15 MG TAB PO SCH (20:35)
[2018-09-09] MEDS: INSULIN GLARGINE SOLOSTAR 100 UNITS/ML 3 ML PEN SC SCH (20:36)
--- NOTE | 2018-09-10 00:09 | Emergency Department Note ---
Entered by Tino Juares acting as a scribe for History of Present Illness General Chief complaint: Altered Mental Status Stated complaint: altered mental status Time Seen by Provider: 09/08/18 13:12 Source: RN notes reviewed Limitations: altered mental status History of Present Illness Provider complaint: Altered mental status Onset (ago): hour(s) (This morning) Location: head Radiation: non-radiation Pain Consistency: + constant Relieved By: + none Exacerbated By: + none Associated symptoms: + confusion The patient is an 88 year old female who presents to the Emergency Room with complaints of constant altered mental status that was first noticed this morning, per the nursing note. The nurse reports that the patient takes Lasix daily but the staff at her living facility noticed her swelling this morning was worse. The nurse also noted that the patient is normally coherent and can hold conversations but this morning when her son visited she could barely recognize him. Upon entering the room the patient's O2 saturation was 87% on 2.5L NC. She does typically wear 2L at baseline. HPI is limited secondary to patient's altered mental status. Home Medications Home Medications Medication Instructions Recorded Confirmed Type allopurinol 100 mg PO DAILY 09/08/18 09/08/18 History amlodipine 5 mg PO DAILY 09/08/18 09/08/18 History aspirin 81 mg PO DAILY 09/08/18 09/08/18 History atorvastatin 20 mg PO HS 09/08/18 09/08/18 History furosemide [Lasix] 40 mg PO DAILY 09/08/18 09/08/18 History insulin aspart U-100 [Novolog 14 unit SUBCUT DIRECTED 09/08/18 09/08/18 History U-100 Insulin aspart] insulin aspart U-100 [Novolog 22 unit SUBCUT UD 09/08/18 09/08/18 History U-100 Insulin aspart] insulin glargine [Basaglar KwikPen 42 unit SUBCUT BID 09/08/18 09/08/18 History U-100 Insulin] levothyroxine 75 mcg PO DAILY 09/08/18 09/08/18 History memantine 7 mg PO DAILY 09/08/18 09/08/18 History miconazole nitrate 1 applic TOPICAL BID 09/08/18 09/08/18 History mirtazapine 30 mg PO HS 09/08/18 09/08/18 History pantoprazole 20 mg PO DAILY 09/08/18 09/08/18 History polyethylene glycol 3350 [Miralax] 17 g PO Q2D 09/08/18 09/08/18 History pregabalin [Lyrica] 75 mg PO BID 09/08/18 09/08/18 History ranitidine HCl 150 mg PO BID 09/08/18 09/08/18 History zinc oxide 1 applic TOPICAL TID 09/08/18 09/08/18 History Allergies Allergy/AdvReac Type Severity Reaction Status Date / Time amoxicillin Allergy Unknown UNKNOWN Unverified 09/08/18 12:53 cefazolin Allergy Unknown UNKNOWN Unverified 09/08/18 12:53 Cephalosporins Allergy Unknown UNKNOWN Unverified 09/08/18 12:53 clavulanic acid Allergy Unknown UNKNOWN Unverified 09/08/18 12:53 fentanyl Allergy Unknown UNKNOWN Unverified 09/08/18 12:53 Sulfa (Sulfonamide Allergy Unknown UNKNOWN Unverified 09/08/18 12:53 Antibiotics) Past Med/Surg History Medical History Hypothyroidism (Chronic) Dementia (Chronic) History of hysterectomy (Chronic) Gastroparesis (Chronic) CKD (chronic kidney disease), stage III (Chronic) Chronic diastolic heart failure (Chronic) Gout (Chronic) Asthma (Chronic) Diabetes mellitus, type II (Chronic) GERD (gastroesophageal reflux disease) (Chronic) HTN (hypertension) (Chronic) Dyslipidemia (Chronic) Surgical History History of lumbar surgery (Chronic) 04/2000 History of appendectomy (Chronic) S/P placement of cardiac pacemaker (Chronic) Social History Communication Ability: Unable Beliefs That Will Affect Care: None marital status: / Current Living Situation: Shelter Feels Safe at Home: Yes Smoking Status: Unknown if ever smoked Hx Alcohol Use: No Hx Substance Use: No Review of Systems See HPI for pertinent positives & negatives. Other (Limited secondary to patient's altered mental status) Physical Exam Vital Signs Vital Signs - 24 hr 09/09/18 03:11 09/09/18 07:06 09/09/18 07:16 Temperature 37.2 C 37.1 C Temperature Source Axillary Axillary Pulse Rate [Right Finger] 60 60 60 Respiratory Rate 20 22 18 Respiratory Effort / Characteristics Non-Labored Spontaneous Respiratory Depth Blood Pressure [Right Arm] 125/56 L 136/67 Blood Pressure Mean [Right Arm] 79 90 Blood Pressure Position [Right Arm] Lying Lying Pulse Oximetry 97 95 95 Oxygen Delivery Method Oxymask Oxymask Oxymask Oxygen Flow Rate 4.0 4.0 4 09/09/18 09:31 09/09/18 10:57 09/09/18 11:01 Temperature 36.5 C Temperature Source Oral Pulse Rate [Right Finger] 60 60 Respiratory Rate 19 18 Respiratory Effort / Characteristics Non-Labored Spontaneous Respiratory Depth Normal Blood Pressure [Right Arm] 156/64 H Blood Pressure Mean [Right Arm] 94 Blood Pressure Position [Right Arm] Sitting Pulse Oximetry 97 97 Oxygen Delivery Method Oxymask Oxymask Oxymask Oxygen Flow Rate 2 2 2 09/09/18 14:40 09/09/18 15:19 09/09/18 18:59 Temperature 36.5 C Temperature Source Axillary Pulse Rate [Right Finger] 70 60 60 Respiratory Rate 18 16 18 Respiratory Effort / Characteristics Non-Labored Spontaneous Non-Labored Spontaneous Respiratory Depth Blood Pressure [Right Arm] 149/66 H Blood Pressure Mean [Right Arm] 93 Blood Pressure Position [Right Arm] Semi-fowlers Pulse Oximetry 96 96 97 Oxygen Delivery Method Nasal Cannula Nasal Cannula Nasal Cannula Oxygen Flow Rate 2 2 2 09/09/18 19:10 09/09/18 19:22 09/10/18 00:02 Temperature 37.3 C 36.5 C Temperature Source Oral Oral Pulse Rate [Right Finger] 60 73 Respiratory Rate 18 19 Respiratory Effort / Characteristics Non-Labored Respiratory Depth Normal Blood Pressure [Right Arm] 133/66 133/67 Blood Pressure Mean [Right Arm] 88 89 Blood Pressure Position [Right Arm] Lying Lying Pulse Oximetry 97 94 Oxygen Delivery Method Nasal Cannula Nasal Cannula Nasal Cannula Oxygen Flow Rate 2 2 3 GENERAL: alert, well appearing, well nourished, no distress, non-toxic EYE EXAM: normal conjunctiva, PERRL and EOM's grossly intact OROPHARYNX: no exudate, no erythema, lips, buccal mucosa, and tongue normal and mucous membranes are moist NECK: supple, no nuchal rigidity, no adenopathy, non-tender LUNGS: Faint bilateral rales. Poor inspiratory effort. Normal chest wall mechanics HEART: no murmurs, S1 normal and S2 normal ABDOMEN: abdomen soft, non-tender, normo-active bowel sounds, no masses, no rebound or guarding. BACK: Back is symmetrical on inspection and there is no deformity, no midline tenderness, no CVA tenderness. SKIN: no rashes and no bruising UPPER EXTREMITIES: upper extremities are grossly normal. LOWER EXTREMITIES: 3+ edema. Compression wraps in place. Normal distal pulses bilaterally. NEURO EXAM: Patient is confused, somnolent but arousable, cranial nerves II-XII grossly intact, normal speech, no gross weakness of arms, no gross weakness of legs. Follows commands and can answer simple questions. Course 1314: The patient was evaluated in room C10, and a complete history and physical examination were performed. 1500: I reevaluated the patient and updated her on the results and treatment plan. She appears in the same state. Is not hypoxic while on nasal cannula and otherwise hemodynamically stable. 1535: I spoke to Lynn Mazariegos PA-C for Dr. Fredy leary. They will be accepting the patient for further evaluation. Consultations Consultation #1: I spoke to Lynn Mazariegos PA-C for Dr. Fredy leary. They will be accepting the patient for further evaluation. Time: 15:35 Administered Medications Albuterol (Duoneb) 3 ml NEB QIDR [facility] Stop: 10/08/18 19:59 Last Admin: 09/09/18 18:59 Dose: 3 ml Documented by: [id number] Admin: 09/09/18 14:38 Dose: 3 ml Documented by: [id number] Admin: 09/09/18 11:00 Dose: 3 ml Documented by: [id number] Admin: 09/09/18 07:04 Dose: 3 ml Documented by: [id number] Admin: 09/08/18 19:24 Dose: Not Given Documented by: [id number] Allopurinol (Zyloprim) 100 mg PO DAILY [facility] Stop: 10/09/18 08:59 Last Admin: 09/09/18 11:45 Dose: Not Given Documented by: [id number] Amlodipine Besylate (Norvasc) 5 mg PO DAILY DAWN Stop: 10/09/18 08:59 Last Admin: 09/09/18 11:44 Dose: Not Given Documented by: [id number] Aspirin (Ecotrin Ectab) 81 mg PO DAILY DAWN Stop: 10/09/18 08:59 Last Admin: 09/09/18 11:44 Dose: Not Given Documented by: [id number] Atorvastatin Calcium (Lipitor) 20 mg PO HS DAWN Stop: 10/08/18 20:59 Last Admin: 09/09/18 20:34 Dose: 20 mg Documented by: [id number] Admin: 09/08/18 21:42 Dose: 20 mg Documented by: [id number] Dextrose (Dextrose 50%) 25 - 50 ml IV UD PRN; Protocol PRN Reason: Hypoglycemia Protocol Stop: 10/08/18 18:35 Last Admin: 09/09/18 11:48 Dose: 25 ml Documented by: [id number] Heparin Sodium (Porcine) (Heparin Sodium (Porcine)) 5,000 units SQ Q12 DAWN Stop: 10/08/18 20:59 Last Admin: 09/09/18 20:35 Dose: 5,000 units Documented by: [id number] Cosigned by: [id number] Admin: 09/09/18 09:40 Dose: 5,000 units Documented by: [id number] Cosigned by: [id number] Admin: 09/08/18 21:39 Dose: 5,000 units Documented by: [id number] Cosigned by: [id number] Dextrose (D5w) 1,000 mls @ 80 mls/hr IV .[id number] [facility] Stop: 10/09/18 12:59 Last Admin: 09/09/18 14:09 Dose: 80 mls/hr Documented by: [id number] Insulin Aspart (Novolog Flexpen) 0 units SC ACHS [facility] Stop: 10/08/18 20:59 Last Admin: 09/09/18 20:27 Dose: Not Given Documented by: [id number] Cosigned by: [id number] Admin: 09/09/18 16:57 Dose: Not Given Documented by: [id number] Cosigned by: [id number] Admin: 09/09/18 11:45 Dose: Not Given Documented by: [id number] Cosigned by: [id number] Admin: 09/09/18 08:54 Dose: Not Given Documented by: [id number] Cosigned by: [id number] Admin: 09/08/18 21:46 Dose: 5 units Documented by: [id number] Cosigned by: [id number] Insulin Glargine (Lantus Solostar Pen) 0 - 20 units SC BID [facility] Stop: 10/09/18 20:59 Last Admin: 09/09/18 20:36 Dose: 10 units Documented by: [id number] Cosigned by: [id number] Levothyroxine Sodium (Synthroid) 75 mcg PO DAILYBB [facility] Stop: 10/09/18 06:29 Last Admin: 09/09/18 05:32 Dose: 75 mcg Documented by: [id number] Miconazole Nitrate (Monistat Derm) 1 appln TOP BID [facility] Stop: 10/08/18 20:59 Last Admin: 09/09/18 20:35 Dose: 1 appln Documented by: [id number] Admin: 09/09/18 09:41 Dose: 1 appln Documented by: [id number] Admin: 09/08/18 21:43 Dose: 1 appln Documented by: [id number] Mirtazapine (Remeron) 30 mg PO HS [facility] Stop: 10/08/18 20:59 Last Admin: 09/09/18 20:35 Dose: 30 mg Documented by: [id number] Admin: 09/08/18 21:42 Dose: 30 mg Documented by: [id number] Miscellaneous (Order Awaiting Action) 1 ea N/A QS [facility] Stop: 10/09/18 00:00 Last Admin: 09/09/18 23:33 Dose: Not Given Documented by: [id number] Admin: 09/09/18 16:59 Dose: Not Given Documented by: [id number] Admin: 09/09/18 16:59 Dose: Not Given Documented by: [id number] Admin: 09/09/18 08:55 Dose: Not Given Documented by: [id number] Pantoprazole Sodium (Protonix) 40 mg PO DAILY [facility] Stop: 10/09/18 08:59 Last Admin: 09/09/18 11:44 Dose: Not Given Documented by: [id number] Petrolatum (Butt Paste) 1 appln EXT TID [facility] Stop: 10/08/18 20:59 Last Admin: 09/09/18 20:31 Dose: 1 appln Documented by: [id number] Admin: 09/09/18 14:12 Dose: 1 appln Documented by: [id number] Admin: 09/09/18 09:40 Dose: 1 appln Documented by: [id number] Admin: 09/08/18 21:39 Dose: 1 appln Documented by: [id number] Polymyxin/Trimethoprim Sulfate (Polytrim) 1 drops OPB Q3H [facility] Stop: 09/15/18 22:29 Last Admin: 09/09/18 23:10 Dose: 1 drops Documented by: [id number] Admin: 09/09/18 20:34 Dose: 1 drops Documented by: [id number] Admin: 09/09/18 16:58 Dose: 1 drops Documented by: [id number] Admin: 09/09/18 14:11 Dose: 1 drops Documented by: [id number] Admin: 09/09/18 11:45 Dose: Not Given Documented by: [id number] Admin: 09/09/18 11:45 Dose: Not Given Documented by: [id number] Admin: 09/09/18 04:49 Dose: 1 drops Documented by: [id number] Admin: 09/09/18 01:55 Dose: Not Given Documented by: [id number] Admin: 09/08/18 23:07 Dose: 1 drops Documented by: [id number] Pregabalin (Lyrica) 75 mg PO BID DAWN Stop: 10/08/18 20:59 Last Admin: 09/09/18 20:46 Dose: 75 mg Documented by: [id number] Admin: 09/09/18 11:44 Dose: Not Given Documented by: [id number] Admin: 09/08/18 21:45 Dose: 75 mg Documented by: [id number] Ranitidine HCl (Zantac) 150 mg PO BID DAWN Stop: 10/08/18 20:59 Last Admin: 09/09/18 20:35 Dose: 150 mg Documented by: [id number] Admin: 09/09/18 11:44 Dose: Not Given Documented by: [id number] Admin: 09/08/18 21:41 Dose: 150 mg Documented by: [id number] Discontinued Medications Albuterol (Duoneb) 3 ml NEB NOW STA Stop: 09/08/18 18:23 Last Admin: 09/08/18 19:23 Dose: 3 ml Documented by: [id number] Aspirin (Aspirin Chew) 324 mg PO NOW STA Stop: 09/08/18 22:15 Last Admin: 09/08/18 23:06 Dose: 324 mg Documented by: [id number] Dextrose (Dextrose 50%) 25 ml IV NOW ONE Stop: 09/08/18 18:31 Last Admin: 09/08/18 19:19 Dose: 25 ml Documented by: [id number] Furosemide (Lasix) Confirm Administered Dose 40 mg IV .STK-MED ONE Stop: 09/08/18 17:52 Last Admin: 09/08/18 18:58 Dose: Not Given Documented by: [id number] Furosemide 40 mg/ Syringe 4 mls @ 4 mls/min IV ONE ONE Stop: 09/08/18 15:28 Last Admin: 09/08/18 17:56 Dose: 4 mls/min Documented by: [id number] Vancomycin HCl 1,750 mg/ (Sodium Chloride) 535 mls @ 200 mls/hr IV NOW ONE Stop: 09/08/18 18:16 Last Infusion: 09/08/18 17:37 Dose: 0 mls/hr Documented by: [id number] Admin: 09/08/18 16:48 Dose: 200 mls/hr Documented by: [id number] Aztreonam 2,000 mg/ Dextrose 110 mls @ 110 mls/hr IV ONE ONE Stop: 09/08/18 17:14 Last Infusion: 09/08/18 17:37 Dose: 0 mls/hr Documented by: [id number] Admin: 09/08/18 16:47 Dose: 110 mls/hr Documented by: [id number] Levofloxacin/Dextrose (Levaquin/D5w) 750 mg in 150 mls @ 100 mls/hr IV ONE ONE Stop: 09/08/18 17:29 Last Infusion: 09/08/18 19:54 Dose: 0 mls/hr Documented by: [id number] Admin: 09/08/18 17:50 Dose: 100 mls/hr Documented by: [id number] Calcium Gluconate 1,000 mg/ (Sodium Chloride) 60 mls @ 240 mls/hr IV NOW STA Stop: 09/08/18 18:36 Last Infusion: 09/08/18 19:16 Dose: 0 mls/hr Documented by: [id number] Admin: 09/08/18 18:44 Dose: 240 mls/hr Documented by: [id number] Insulin Human Regular 10 units (/ Syringe) 10 mls @ 30 mls/min IV ONE ONE Stop: 09/08/18 18:31 Last Admin: 09/08/18 19:16 Dose: 30 mls/min Documented by: [id number] Cosigned by: [id number] Furosemide 40 mg/ Syringe 4 mls @ 4 mls/min IV DAILY@0900 DAWN Stop: 10/09/18 08:59 Last Admin: 09/09/18 09:40 Dose: 4 mls/min Documented by: [id number] Albumin Human (Albumin 25%) 50 mls @ 50 mls/hr IV ONE ONE Stop: 09/09/18 11:59 Last Infusion: 09/09/18 12:27 Dose: 0 mls/hr Documented by: [id number] Admin: 09/09/18 11:27 Dose: 50 mls/hr Documented by: [id number] Insulin Glargine (Lantus Solostar Pen) 42 units SC BID DAWN Stop: 10/08/18 20:59 Last Admin: 09/08/18 21:40 Dose: 42 units Documented by: [id number] Cosigned by: [id number] Miscellaneous Information (Consult) 1 ea N/A UD ONE Stop: 09/08/18 15:37 Last Admin: 09/08/18 18:45 Dose: 1 ea Documented by: [id number] Perflutren Lipid Microsphere (Definity) 2 ml IV ONCE ONE Stop: 09/09/18 06:50 Last Admin: 09/09/18 06:51 Dose: 2 ml Documented by: [id number] Medical Decision Making Differential Diagnosis Differential diagnoses includes but is not limited to toxic, metabolic, infectious, traumatic, cardiac, neurologic, hematologic, psychiatric and inflammatory etiologies. Medical Records Attestation: I reviewed the patient's medical records. Home Medications Current Medication List: was personally reviewed by me Laboratory Data Attestation: I reviewed the patient's lab results. Result diagrams: 09/09/18 01:41 09/09/18 01:41 Lab Results 09/08/18 09/08/18 09/08/18 Range/Units 13:40 13:55 13:55 WBC (4.8-10.8) K/uL RBC (4.2-5.4) M/uL Hgb (12.0-16.0) g/dL Hct (37-47) % MCV (80-100) fL MCH (25-34) pg MCHC (32-36) g/dL RDW Std Deviation (36.4-46.3) fL RDW Coeff of Tristen (11.5-14.5) % Plt Count (130-400) K/uL MPV (7.4-10.4) fL Immature Gran % (Auto) % Neut % (Auto) % Lymph % (Auto) % [place] % (Auto) % Eos % (Auto) % Baso % (Auto) % Immature Gran # (Auto) (0.00-0.02) K/uL Neut # (Auto) (1.4-6.5) K/uL Lymph # (Auto) (1.2-3.4) K/uL [place] # (Auto) (0.11-0.59) K/uL Eos # (Auto) (0-0.5) K/uL Baso # (Auto) (0-0.2) K/uL Absolute Nucleated RBC (0-0) K/uL Nucleated RBC % (auto) % PT 10.7 (9.0-12.0) Seconds INR 1.0 (0.9-1.1) Sodium 135 L (136-145) mmol/L Potassium 6.1 H* (3.5-5.1) mmol/L Chloride 104 (98-107) mmol/L Carbon Dioxide 29 (21-32) mmol/L Anion Gap 3.0 (3-11) BUN 43 H (7-18) mg/dl Creatinine 2.33 H (0.6-1.2) mg/dl Est Cr Clr Drug Dosing 17.3 ml/min Est GFR ( Amer) 20.8 Est GFR (Non-Af Amer) 17.9 BUN/Creatinine Ratio 18.5 (10-20) Glucose 296 H (70-99) mg/dl POC Glucose (70-99) Calcium 8.1 L (8.5-10.1) mg/dl Total Bilirubin 0.3 (0.2-1) mg/dl AST 65 H (15-37) U/L ALT 50 (12-78) U/L Alkaline Phosphatase 104 (45-117) U/L Total Creatine Kinase (26-192) U/L Troponin I 0.056 H* (0-0.045) ng/ml NT-Pro-B Natriuret Pep 3630 H (0-1800) pg/ml Total Protein 7.6 (6.4-8.2) gm/dl Albumin 2.9 L (3.4-5.0) gm/dl Globulin 4.7 H (2.5-4.0) gm/dl Albumin/Globulin Ratio 0.6 L (0.9-2) Procalcitonin 0.12 (0-0.5) ng/ml Specimen Hemolysis Urine Color Urine Appearance (Clear) Urine pH (4.5-7.5) Ur Specific [place] (1.000-1.030) Urine Protein (Negative) Urine Glucose (UA) (Negative) Urine Ketones (Negative) Urine Blood (Negative) Urine Nitrite (Negative) Urine Bilirubin (Negative) Urine Urobilinogen (Negative) Ur Leukocyte Esterase (Negative) Urine WBC (Auto) (0-5) /hpf Urine RBC (Auto) (0-4) /hpf U Hyaline Cast (Auto) (0-5) /lpf U Epithel Cells (Auto) (0-5) /lpf Urine Bacteria (Auto) (Negative) Nasal Screen MRSA (PCR) (Negative) Random Vancomycin mcg/ml Influenza Type A (PCR) (Neg) Influenza Type B (PCR) (Neg) 09/08/18 09/08/18 09/08/18 Range/Units 14:20 16:28 16:36 WBC 10.39 (4.8-10.8) K/uL RBC 4.33 (4.2-5.4) M/uL Hgb 10.2 L (12.0-16.0) g/dL Hct 34.0 L (37-47) % MCV 78.5 L (80-100) fL MCH 23.6 L (25-34) pg MCHC 30.0 L (32-36) g/dL RDW Std Deviation 56.3 H (36.4-46.3) fL RDW Coeff of Tristen 19.3 H (11.5-14.5) % Plt Count 298 (130-400) K/uL MPV 9.6 (7.4-10.4) fL Immature Gran % (Auto) 0.4 % Neut % (Auto) 70.7 % Lymph % (Auto) 21.2 % [place] % (Auto) 7.1 % Eos % (Auto) 0.2 % Baso % (Auto) 0.4 % Immature Gran # (Auto) 0.04 H (0.00-0.02) K/uL Neut # (Auto) 7.35 H (1.4-6.5) K/uL Lymph # (Auto) 2.20 (1.2-3.4) K/uL [place] # (Auto) 0.74 H (0.11-0.59) K/uL Eos # (Auto) 0.02 (0-0.5) K/uL Baso # (Auto) 0.04 (0-0.2) K/uL Absolute Nucleated RBC (0-0) K/uL Nucleated RBC % (auto) % PT (9.0-12.0) Seconds INR (0.9-1.1) Sodium 139 (136-145) mmol/L Potassium 5.8 H (3.5-5.1) mmol/L Chloride 105 (98-107) mmol/L Carbon Dioxide 30 (21-32) mmol/L Anion Gap 4.0 (3-11) BUN 43 H (7-18) mg/dl Creatinine 2.28 H (0.6-1.2) mg/dl Est Cr Clr Drug Dosing 17.7 ml/min Est GFR ( Amer) 21.4 Est GFR (Non-Af Amer) 18.4 BUN/Creatinine Ratio 19.0 (10-20) Glucose 266 H (70-99) mg/dl POC Glucose (70-99) Calcium 8.5 (8.5-10.1) mg/dl Total Bilirubin (0.2-1) mg/dl AST (15-37) U/L ALT (12-78) U/L Alkaline Phosphatase (45-117) U/L Total Creatine Kinase (26-192) U/L Troponin I (0-0.045) ng/ml NT-Pro-B Natriuret Pep (0-1800) pg/ml Total Protein (6.4-8.2) gm/dl Albumin (3.4-5.0) gm/dl Globulin (2.5-4.0) gm/dl Albumin/Globulin Ratio (0.9-2) Procalcitonin (0-0.5) ng/ml Specimen Hemolysis Urine Color Urine Appearance (Clear) Urine pH (4.5-7.5) Ur Specific [place] (1.000-1.030) Urine Protein (Negative) Urine Glucose (UA) (Negative) Urine Ketones (Negative) Urine Blood (Negative) Urine Nitrite (Negative) Urine Bilirubin (Negative) Urine Urobilinogen (Negative) Ur Leukocyte Esterase (Negative) Urine WBC (Auto) (0-5) /hpf Urine RBC (Auto) (0-4) /hpf U Hyaline Cast (Auto) (0-5) /lpf U Epithel Cells (Auto) (0-5) /lpf Urine Bacteria (Auto) (Negative) Nasal Screen MRSA (PCR) Negative (Negative) Random Vancomycin mcg/ml Influenza Type A (PCR) (Neg) Influenza Type B (PCR) (Neg) 09/08/18 09/08/18 09/08/18 Range/Units 20:30 21:07 Unknown WBC (4.8-10.8) K/uL RBC (4.2-5.4) M/uL Hgb (12.0-16.0) g/dL Hct (37-47) % MCV (80-100) fL MCH (25-34) pg MCHC (32-36) g/dL RDW Std Deviation (36.4-46.3) fL RDW Coeff of Tristen (11.5-14.5) % Plt Count (130-400) K/uL MPV (7.4-10.4) fL Immature Gran % (Auto) % Neut % (Auto) % Lymph % (Auto) % [place] % (Auto) % Eos % (Auto) % Baso % (Auto) % Immature Gran # (Auto) (0.00-0.02) K/uL Neut # (Auto) (1.4-6.5) K/uL Lymph # (Auto) (1.2-3.4) K/uL [place] # (Auto) (0.11-0.59) K/uL Eos # (Auto) (0-0.5) K/uL Baso # (Auto) (0-0.2) K/uL Absolute Nucleated RBC (0-0) K/uL Nucleated RBC % (auto) % PT (9.0-12.0) Seconds INR (0.9-1.1) Sodium 141 (136-145) mmol/L Potassium 4.3 D (3.5-5.1) mmol/L Chloride 106 (98-107) mmol/L Carbon Dioxide 28 (21-32) mmol/L Anion Gap 8.0 (3-11) BUN 43 H (7-18) mg/dl Creatinine 2.11 H (0.6-1.2) mg/dl Est Cr Clr Drug Dosing 19.9 ml/min Est GFR ( Amer) 23.5 Est GFR (Non-Af Amer) 20.2 BUN/Creatinine Ratio 20.2 H (10-20) Glucose 176 H (70-99) mg/dl POC Glucose 203 H (70-99) Calcium 8.6 (8.5-10.1) mg/dl Total Bilirubin (0.2-1) mg/dl AST (15-37) U/L ALT (12-78) U/L Alkaline Phosphatase (45-117) U/L Total Creatine Kinase 51 (26-192) U/L Troponin I 0.109 H* (0-0.045) ng/ml NT-Pro-B Natriuret Pep (0-1800) pg/ml Total Protein (6.4-8.2) gm/dl Albumin (3.4-5.0) gm/dl Globulin (2.5-4.0) gm/dl Albumin/Globulin Ratio (0.9-2) Procalcitonin (0-0.5) ng/ml Specimen Hemolysis Urine Color Urine Appearance (Clear) Urine pH (4.5-7.5) Ur Specific [place] (1.000-1.030) Urine Protein (Negative) Urine Glucose (UA) (Negative) Urine Ketones (Negative) Urine Blood (Negative) Urine Nitrite (Negative) Urine Bilirubin (Negative) Urine Urobilinogen (Negative) Ur Leukocyte Esterase (Negative) Urine WBC (Auto) (0-5) /hpf Urine RBC (Auto) (0-4) /hpf U Hyaline Cast (Auto) (0-5) /lpf U Epithel Cells (Auto) (0-5) /lpf Urine Bacteria (Auto) (Negative) Nasal Screen MRSA (PCR) (Negative) Random Vancomycin mcg/ml Influenza Type A (PCR) Neg for Influ A (Neg) Influenza Type B (PCR) Neg for Influ B (Neg) 09/09/18 09/09/18 09/09/18 Range/Units 01:41 01:41 01:41 WBC 13.54 H (4.8-10.8) K/uL RBC 4.24 (4.2-5.4) M/uL Hgb 10.1 L (12.0-16.0) g/dL Hct 33.5 L (37-47) % MCV 79.0 L (80-100) fL MCH 23.8 L (25-34) pg MCHC 30.1 L (32-36) g/dL RDW Std Deviation 55.0 H (36.4-46.3) fL RDW Coeff of Tristen 19.1 H (11.5-14.5) % Plt Count 274 (130-400) K/uL MPV 9.8 (7.4-10.4) fL Immature Gran % (Auto) 0.4 % Neut % (Auto) 83.0 % Lymph % (Auto) 8.4 % [place] % (Auto) 6.7 % Eos % (Auto) 1.3 % Baso % (Auto) 0.2 % Immature Gran # (Auto) 0.05 H (0.00-0.02) K/uL Neut # (Auto) 11.23 H (1.4-6.5) K/uL Lymph # (Auto) 1.14 L (1.2-3.4) K/uL [place] # (Auto) 0.91 H (0.11-0.59) K/uL Eos # (Auto) 0.18 (0-0.5) K/uL Baso # (Auto) 0.03 (0-0.2) K/uL Absolute Nucleated RBC 0.03 H (0-0) K/uL Nucleated RBC % (auto) 0.2 % PT (9.0-12.0) Seconds INR (0.9-1.1) Sodium 139 (136-145) mmol/L Potassium 4.7 (3.5-5.1) mmol/L Chloride 107 (98-107) mmol/L Carbon Dioxide 31 (21-32) mmol/L Anion Gap 1.0 L (3-11) BUN 45 H (7-18) mg/dl Creatinine 2.07 H (0.6-1.2) mg/dl Est Cr Clr Drug Dosing 20.3 ml/min Est GFR ( Amer) 24.0 Est GFR (Non-Af Amer) 20.7 BUN/Creatinine Ratio 21.7 H (10-20) Glucose 115 H (70-99) mg/dl POC Glucose (70-99) Calcium 8.4 L (8.5-10.1) mg/dl Total Bilirubin (0.2-1) mg/dl AST (15-37) U/L ALT (12-78) U/L Alkaline Phosphatase (45-117) U/L Total Creatine Kinase (26-192) U/L Troponin I 0.090 H* (0-0.045) ng/ml NT-Pro-B Natriuret Pep (0-1800) pg/ml Total Protein (6.4-8.2) gm/dl Albumin (3.4-5.0) gm/dl Globulin (2.5-4.0) gm/dl Albumin/Globulin Ratio (0.9-2) Procalcitonin (0-0.5) ng/ml Specimen Hemolysis Urine Color Urine Appearance (Clear) Urine pH (4.5-7.5) Ur Specific [place] (1.000-1.030) Urine Protein (Negative) Urine Glucose (UA) (Negative) Urine Ketones (Negative) Urine Blood (Negative) Urine Nitrite (Negative) Urine Bilirubin (Negative) Urine Urobilinogen (Negative) Ur Leukocyte Esterase (Negative) Urine WBC (Auto) (0-5) /hpf Urine RBC (Auto) (0-4) /hpf U Hyaline Cast (Auto) (0-5) /lpf U Epithel Cells (Auto) (0-5) /lpf Urine Bacteria (Auto) (Negative) Nasal Screen MRSA (PCR) (Negative) Random Vancomycin 21.4 mcg/ml Influenza Type A (PCR) (Neg) Influenza Type B (PCR) (Neg) 09/09/18 09/09/18 09/09/18 Range/Units 02:30 07:16 07:39 WBC (4.8-10.8) K/uL RBC (4.2-5.4) M/uL Hgb (12.0-16.0) g/dL Hct (37-47) % MCV (80-100) fL MCH (25-34) pg MCHC (32-36) g/dL RDW Std Deviation (36.4-46.3) fL RDW Coeff of Tristen (11.5-14.5) % Plt Count (130-400) K/uL MPV (7.4-10.4) fL Immature Gran % (Auto) % Neut % (Auto) % Lymph % (Auto) % [place] % (Auto) % Eos % (Auto) % Baso % (Auto) % Immature Gran # (Auto) (0.00-0.02) K/uL Neut # (Auto) (1.4-6.5) K/uL Lymph # (Auto) (1.2-3.4) K/uL [place] # (Auto) (0.11-0.59) K/uL Eos # (Auto) (0-0.5) K/uL Baso # (Auto) (0-0.2) K/uL Absolute Nucleated RBC (0-0) K/uL Nucleated RBC % (auto) % PT (9.0-12.0) Seconds INR (0.9-1.1) Sodium (136-145) mmol/L Potassium (3.5-5.1) mmol/L Chloride (98-107) mmol/L Carbon Dioxide (21-32) mmol/L Anion Gap (3-11) BUN (7-18) mg/dl Creatinine (0.6-1.2) mg/dl Est Cr Clr Drug Dosing ml/min Est GFR ( Amer) Est GFR (Non-Af Amer) BUN/Creatinine Ratio (10-20) Glucose (70-99) mg/dl POC Glucose 73 74 (70-99) Calcium (8.5-10.1) mg/dl Total Bilirubin (0.2-1) mg/dl AST (15-37) U/L ALT (12-78) U/L Alkaline Phosphatase (45-117) U/L Total Creatine Kinase (26-192) U/L Troponin I (0-0.045) ng/ml NT-Pro-B Natriuret Pep (0-1800) pg/ml Total Protein (6.4-8.2) gm/dl Albumin (3.4-5.0) gm/dl Globulin (2.5-4.0) gm/dl Albumin/Globulin Ratio (0.9-2) Procalcitonin (0-0.5) ng/ml Specimen Hemolysis Urine Color Yellow Urine Appearance Clear (Clear) Urine pH 5.0 (4.5-7.5) Ur Specific [place] 1.016 (1.000-1.030) Urine Protein Trace H (Negative) Urine Glucose (UA) Negative (Negative) Urine Ketones Negative (Negative) Urine Blood Trace H (Negative) Urine Nitrite Negative (Negative) Urine Bilirubin Negative (Negative) Urine Urobilinogen Negative (Negative) Ur Leukocyte Esterase Negative (Negative) Urine WBC (Auto) 1-5 (0-5) /hpf Urine RBC (Auto) 0-4 (0-4) /hpf U Hyaline Cast (Auto) 1-5 (0-5) /lpf U Epithel Cells (Auto) 0-5 (0-5) /lpf Urine Bacteria (Auto) Negative (Negative) Nasal Screen MRSA (PCR) (Negative) Random Vancomycin mcg/ml Influenza Type A (PCR) (Neg) Influenza Type B (PCR) (Neg) 09/09/18 09/09/18 09/09/18 Range/Units 11:37 11:39 12:08 WBC (4.8-10.8) K/uL RBC (4.2-5.4) M/uL Hgb (12.0-16.0) g/dL Hct (37-47) % MCV (80-100) fL MCH (25-34) pg MCHC (32-36) g/dL RDW Std Deviation (36.4-46.3) fL RDW Coeff of Tristen (11.5-14.5) % Plt Count (130-400) K/uL MPV (7.4-10.4) fL Immature Gran % (Auto) % Neut % (Auto) % Lymph % (Auto) % [place] % (Auto) % Eos % (Auto) % Baso % (Auto) % Immature Gran # (Auto) (0.00-0.02) K/uL Neut # (Auto) (1.4-6.5) K/uL Lymph # (Auto) (1.2-3.4) K/uL [place] # (Auto) (0.11-0.59) K/uL Eos # (Auto) (0-0.5) K/uL Baso # (Auto) (0-0.2) K/uL Absolute Nucleated RBC (0-0) K/uL Nucleated RBC % (auto) % PT (9.0-12.0) Seconds INR (0.9-1.1) Sodium (136-145) mmol/L Potassium (3.5-5.1) mmol/L Chloride (98-107) mmol/L Carbon Dioxide (21-32) mmol/L Anion Gap (3-11) BUN (7-18) mg/dl Creatinine (0.6-1.2) mg/dl Est Cr Clr Drug Dosing ml/min Est GFR ( Amer) Est GFR (Non-Af Amer) BUN/Creatinine Ratio (10-20) Glucose (70-99) mg/dl POC Glucose 56 L* 56 L* 91 (70-99) Calcium (8.5-10.1) mg/dl Total Bilirubin (0.2-1) mg/dl AST (15-37) U/L ALT (12-78) U/L Alkaline Phosphatase (45-117) U/L Total Creatine Kinase (26-192) U/L Troponin I (0-0.045) ng/ml NT-Pro-B Natriuret Pep (0-1800) pg/ml Total Protein (6.4-8.2) gm/dl Albumin (3.4-5.0) gm/dl Globulin (2.5-4.0) gm/dl Albumin/Globulin Ratio (0.9-2) Procalcitonin (0-0.5) ng/ml Specimen Hemolysis Urine Color Urine Appearance (Clear) Urine pH (4.5-7.5) Ur Specific [place] (1.000-1.030) Urine Protein (Negative) Urine Glucose (UA) (Negative) Urine Ketones (Negative) Urine Blood (Negative) Urine Nitrite (Negative) Urine Bilirubin (Negative) Urine Urobilinogen (Negative) Ur Leukocyte Esterase (Negative) Urine WBC (Auto) (0-5) /hpf Urine RBC (Auto) (0-4) /hpf U Hyaline Cast (Auto) (0-5) /lpf U Epithel Cells (Auto) (0-5) /lpf Urine Bacteria (Auto) (Negative) Nasal Screen MRSA (PCR) (Negative) Random Vancomycin mcg/ml Influenza Type A (PCR) (Neg) Influenza Type B (PCR) (Neg) 09/09/18 09/09/18 Range/Units 16:27 20:07 WBC (4.8-10.8) K/uL RBC (4.2-5.4) M/uL Hgb (12.0-16.0) g/dL Hct (37-47) % MCV (80-100) fL MCH (25-34) pg MCHC (32-36) g/dL RDW Std Deviation (36.4-46.3) fL RDW Coeff of Tristen (11.5-14.5) % Plt Count (130-400) K/uL MPV (7.4-10.4) fL Immature Gran % (Auto) % Neut % (Auto) % Lymph % (Auto) % [place] % (Auto) % Eos % (Auto) % Baso % (Auto) % Immature Gran # (Auto) (0.00-0.02) K/uL Neut # (Auto) (1.4-6.5) K/uL Lymph # (Auto) (1.2-3.4) K/uL [place] # (Auto) (0.11-0.59) K/uL Eos # (Auto) (0-0.5) K/uL Baso # (Auto) (0-0.2) K/uL Absolute Nucleated RBC (0-0) K/uL Nucleated RBC % (auto) % PT (9.0-12.0) Seconds INR (0.9-1.1) Sodium (136-145) mmol/L Potassium (3.5-5.1) mmol/L Chloride (98-107) mmol/L Carbon Dioxide (21-32) mmol/L Anion Gap (3-11) BUN (7-18) mg/dl Creatinine (0.6-1.2) mg/dl Est Cr Clr Drug Dosing ml/min Est GFR ( Amer) Est GFR (Non-Af Amer) BUN/Creatinine Ratio (10-20) Glucose (70-99) mg/dl POC Glucose 104 H 163 H (70-99) Calcium (8.5-10.1) mg/dl Total Bilirubin (0.2-1) mg/dl AST (15-37) U/L ALT (12-78) U/L Alkaline Phosphatase (45-117) U/L Total Creatine Kinase (26-192) U/L Troponin I (0-0.045) ng/ml NT-Pro-B Natriuret Pep (0-1800) pg/ml Total Protein (6.4-8.2) gm/dl Albumin (3.4-5.0) gm/dl Globulin (2.5-4.0) gm/dl Albumin/Globulin Ratio (0.9-2) Procalcitonin (0-0.5) ng/ml Specimen Hemolysis Urine Color Urine Appearance (Clear) Urine pH (4.5-7.5) Ur Specific [place] (1.000-1.030) Urine Protein (Negative) Urine Glucose (UA) (Negative) Urine Ketones (Negative) Urine Blood (Negative) Urine Nitrite (Negative) Urine Bilirubin (Negative) Urine Urobilinogen (Negative) Ur Leukocyte Esterase (Negative) Urine WBC (Auto) (0-5) /hpf Urine RBC (Auto) (0-4) /hpf U Hyaline Cast (Auto) (0-5) /lpf U Epithel Cells (Auto) (0-5) /lpf Urine Bacteria (Auto) (Negative) Nasal Screen MRSA (PCR) (Negative) Random Vancomycin mcg/ml Influenza Type A (PCR) (Neg) Influenza Type B (PCR) (Neg) Imaging Data Radiologist's Impression: Radiology results as stated below per my review and the radiologist's interpretation: XR chest 1V portable CLINICAL HISTORY: edema, SOB dyspnea COMPARISON STUDY: September 2016 FINDINGS: Mild increase in cardiac size. Increased pulmonary vasculature. Small superimposed infiltrate and effusion left base. IMPRESSION: 1. Congestive heart failure. 2. Superimposed atelectasis versus minimal infiltrate left base. The above report was generated using voice recognition software. It may contain grammatical, syntax or spelling errors. Electronically signed by: Kun Berrios M.D. 09/08/2018 2:[address] head/brain wo con CT DOSE: 537.48 mGy.cm HISTORY: Mental status change ams TECHNIQUE: Multiaxial CT images of the head were performed without the use of intravenous contrast. A dose lowering technique was utilized adhering to the principles of ALARA. Comparison: None. Findings: The paranasal sinuses and mastoid air cells are clear. The calvarium and skull base are intact. The ventricles and sulci are within normal limits. There is no mass, hematoma, midline shift, or acute infarct. Impression: No acute intracranial abnormality. The above report was generated using voice recognition software. It may contain grammatical, syntax or spelling errors. Electronically signed by: Kun Berrios M.D. 09/08/2018 1:59 PM ECG Data Attestation: I personally reviewed and interpreted this ECG as follows: Indication: altered mental status Rate (beats per minute): 67 Rhythm: other (AV-Paced) Findings: + other (Prolonged QRS, normal QTC); no ST elevation Blood Pressure Blood Pressure Findings: Elevated blood pressure Blood Pressure Disposition: further management by hospitalist [place] Narrative Patient here ill-appearing with altered mental status and worsening trouble breathing according to alf report. Patient found to be in congestive heart failure which likely led to elevated troponin secondarily. I do not suspect ACS as the primary cause. Patient is at risk for ACS given past medical history. Patient with a known history of chronic kidney disease although today's creatinine elevated compared to prior on review of EMR. Patient's chest x-ray also read as possible infiltrate so blood cultures obtained, lactic acid and procalcitonin ordered and patient started on IV antibiotics as a precaution. No evidence of septic shock. Case discussed with the admitting team for additional inpatient treatment and evaluation. No family at bedside. Hyperkalemia noted although likely secondary to acute renal dysfunction, no acute EKG abnormalities noted. Given patient was given a dose of Lasix here to help with pulmonary edema and fluid retention, this will also help with hyperkalemia. Patient also noted to be hyperglycemic. Patient does however have a history of diabetes, no evidence of DKA or HH NK. Impression & Plan CHF (congestive heart failure), Altered mental status, CKD (chronic kidney disease), Pneumonia, Elevated troponin, Hyperkalemia, Hyperglycemia Discharge Plan Visit Data *Final* Discharge Date/Time: 09/08/18 17:45 Chief Complaint: Altered Mental Status Stated Complaint: altered mental status ED Provider: Tessa Davis Discharge Problem: CHF (congestive heart failure), Altered mental status, CKD (chronic kidney disease), Pneumonia, Elevated troponin, Hyperkalemia, Hyperglycemia Patient Disposition: Admitted As Inpatient Discharge Instructions Interventions: ED Discharge Assessment Last Done: 09/08/18 17:45 The scribe's documentation has been prepared under my direction and personally reviewed by me in its entirety. I confirm that the note above accurately reflects all work, treatment, procedures, and medical decision making performed by me.
[2018-09-10] MEDS: DEXTROSE 5% 1,000 ML IV SCH (02:11)
[2018-09-10] MEDS: TRIMETHOPRIM/POLYMYXIN B OPB SCH ×8 (02:12→20:27)
[2018-09-10] MEDS: LEVOTHYROXINE SODIUM 75 MCG TABLET PO SCH (05:44)
[2018-09-10 06:25] LABS: BUN Creatinine Ratio 21.3 (10-20); Calcium 8.3 mg/dl (8.5-10.1); Creatinine Clr Calc Pharmacy 23.7 ml/min; Est GFR (African American) 29.4; Est GFR (Non-African American) 25.4; Potassium 3.9 mmol/L (3.5-5.1)
[2018-09-10] MEDS: ALBUT/IPRATROP 3MG/0.5MG NEB 3 ML VIAL NEB SCH ×3 (07:11→14:40)
[2018-09-10] MEDS: INSULIN ASPART 100 UNITS/ML 3 ML PEN SC SCH ×4 (08:09→20:15)
[2018-09-10] MEDS: BUTT PASTE (ZINC OXIDE 16%) 171 APPLN/57 GM JAR EXT SCH ×3 (08:10→20:16)
[2018-09-10] MEDS: ALLOPURINOL 100 MG TAB PO SCH (08:11)
[2018-09-10] MEDS: ASPIRIN 81 MG ECTAB PO SCH (08:11)
[2018-09-10] MEDS: PANTOprazole 40 MG TAB PO SCH (08:11)
[2018-09-10] MEDS: AMLODIPINE BESYLATE 5 MG TAB PO SCH (08:11)
[2018-09-10] MEDS: MICONAZOLE NITRATE 2% CR 30 GM TUBE TOP SCH ×2 (08:12→20:16)
[2018-09-10] MEDS: INSULIN GLARGINE SOLOSTAR 100 UNITS/ML 3 ML PEN SC SCH ×3 (08:12→20:27)
[2018-09-10] MEDS: HEPARIN SOD 5,000 UNIT/0.5 ML VIAL SQ SCH ×2 (08:13→20:28)
[2018-09-10] MEDS: PREGABALIN 75 MG CAP PO SCH ×2 (08:16→20:26)
[2018-09-10] MEDS ORDERED: POLYETHYLENE (MIRALAX) 17 GM PACK PO SCH (09:00)
[2018-09-10] MEDS ORDERED: POTASSIUM CHLORIDE 20 MEQ TABCR PO STA (09:35)
--- NOTE | 2018-09-10 09:46 | Cardiology Progress Note ---
Date of Service September 10, 2018 Assessment & Plan (1) Acute on chronic diastolic (congestive) heart failure: Volume status improved. 2 L of urine output noted yesterday via Shook catheter which remains in place. She received 40 mg of IV furosemide the a.m. of 09/09/2018, and I held her dose pending reassessment of her kidney function today. Kidney function electrolytes are stable. We will resume IV diuretics with low-dose furosemide 20 mg every 12 along with IV albumin given her low albumin state. (2) Acute kidney injury superimposed on CKD: Baseline creatinine appears to be in the range of 1.5-1.8. Creatinine was 2.33 on admission and is trended toward improvement, 1.75 today. Diuretics as noted above, repeat chemistry panel in the morning. (3) Hyperkalemia: Hyperkalemia noted on admission, potassium 6.1, this is now 3.9. Given plans for diuretic therapy, will administer cautious dose of potassium chloride 20 mEq x 1 today. Follow chemistry panel tomorrow. (4) Dementia: Appears to be approaching baseline mental status (5) Altered mental status: Cognitive impairment noted, but certainly improved compared to admission. (6) Elevated troponin: The patient's EKG is nondiagnostic for ischemia given chronic ventricular paced rhythm. Her mild, relatively flat, troponin elevation, is likely due to myocardial strain in the setting of volume overload. Echocardiogram revealed normal LV wall motion which is reassuring. The patient did have hypoglycemia overnight and was therefore on D5 dextrose at 80 mL's per hour. This is been discontinued. Agree with subcutaneous heparin for DVT prophylaxis. Subjective Chief complaint: Follow-up edema, lethargy Subjective: The patient is much more alert today. She responds to verbal commands and opens her eyes. She deftly demonstrates a cognitive impairment in terms of providing history. She believes that she had her pacemaker at this institution, however, it was not performed here. She was unable to tell me who her slip bridge operator is outside hospital but her daughter came to visit her and inform me that the patient follows with Dr. Peng as an outpatient for management of her pacemaker, and her history of diastolic heart failure. Telemetry reveals sinus rhythm with AV sequential pacing and no significant arrhythmia. Review of Systems Review of Systems: Patient without subjective complaints. 10 point review of systems is unobtainable due to her cognitive impairment. Physical Exam Constitutional: + altered mental status (Mentation improved, based on records, I think she is approaching her baseline mental status) Neck: trachea midline, no thyromegaly Respiratory: Auscultation: + diminished lung sounds (Mildly decreased breath sounds at the bases, no rales rhonchi or wheezing) Cardiovascular: RRR, no murmur, no edema Extremities: + edema (1+ bilateral lower extremity edema, significantly improved compared to 09/09/2018, mild upper extremity edema) Neurologic: Moves all 4 extremities on command Results & Data Vital Signs (Past 12 Hours) Vital Signs Temp Pulse Pulse Resp BP Pulse Ox 09/10/18 07:42 36.8 C 60 18 133/66 94 09/10/18 07:11 69 18 97 09/10/18 03:02 36.5 C 62 19 127/72 95 09/10/18 00:49 60 09/10/18 00:02 36.5 C 73 19 133/67 94 Laboratory Results Comprehensive Metabolic Panel 09/10/18 Range/Units 05:23 Sodium 137 (136-145) mmol/L Potassium 3.9 D (3.5-5.1) mmol/L Chloride 101 (98-107) mmol/L Carbon Dioxide 33 H (21-32) mmol/L BUN 37 H (7-18) mg/dl Creatinine 1.75 H D (0.6-1.2) mg/dl Glucose 130 H (70-99) mg/dl Calcium 8.3 L (8.5-10.1) mg/dl Intake and Output 09/09/18 09/10/18 09/10/18 22:59 06:59 14:59 Intake Total 50 / 6451.400 1665.000 / 1488.000 Output Total 852075 475 / 2075 Balance -801 / -588.000 853.000 / -588.000 Intake: IV 1328.000 / 1378.000 D5w 1,000 ml @ 80 mls/hr IV . 1328.000 / 1328.000 [id number] [facility] Rx#:[id number] Oral 50 / 110 Output: Urine Amount (Catheter) 2074 475 / 2074 Shook/Indwelling 2074 # Bowel Movements Other: Other Intake Source sips Weight 86.4 kg Medications Administered Current Inpatient Medications Acetaminophen (Tylenol) 650 mg PO Q4H PRN PRN Reason: Pain or Fever Stop: 10/08/18 18:35 Albuterol (Duoneb) 3 ml NEB QIDR [facility] Stop: 10/08/18 19:59 Last Admin: 09/10/18 07:11 Dose: 3 ml Documented by: Allopurinol (Zyloprim) 100 mg PO DAILY [facility] Stop: 10/09/18 08:59 Last Admin: 09/10/18 08:11 Dose: 100 mg Documented by: Amlodipine Besylate (Norvasc) 5 mg PO DAILY [facility] Stop: 10/09/18 08:59 Last Admin: 09/10/18 08:11 Dose: 5 mg Documented by: Aspirin (Ecotrin Ectab) 81 mg PO DAILY [facility] Stop: 10/09/18 08:59 Last Admin: 09/10/18 08:11 Dose: 81 mg Documented by: Atorvastatin Calcium (Lipitor) 20 mg PO HS [facility] Stop: 10/08/18 20:59 Last Admin: 09/09/18 20:34 Dose: 20 mg Documented by: Dextrose (Dextrose 50%) 25 - 50 ml IV UD PRN; Protocol PRN Reason: Hypoglycemia Protocol Stop: 10/08/18 18:35 Last Admin: 09/09/18 11:48 Dose: 25 ml Documented by: Glucagon (Glucagen) 1 mg SQ UD PRN; Protocol PRN Reason: Hypoglycemia Protocol Stop: 10/08/18 18:35 Glucose (Glucose 40%) 15 - 30 gm PO UD PRN; Protocol PRN Reason: Hypoglycemia Protocol Stop: 10/08/18 18:35 Glucose (Dex4 Glucose) 4 - 8 tabs PO UD PRN; Protocol PRN Reason: Hypoglycemia Protocol Stop: 10/08/18 18:35 Heparin Sodium (Porcine) (Heparin Sodium (Porcine)) 5,000 units SQ Q12 [facility] Stop: 10/08/18 20:59 Last Admin: 09/10/18 08:13 Dose: 5,000 units Documented by: Furosemide 20 mg/ Albumin (Human) 52 mls @ 54 mls/hr IV BID [facility] Stop: 09/13/18 09:44 Insulin Aspart (Novolog Flexpen) 0 units SC ACHS [facility] Stop: 10/08/18 20:59 Last Admin: 09/10/18 08:09 Dose: Not Given Documented by: Insulin Glargine (Lantus Solostar Pen) 0 - 20 units SC BID [facility] Stop: 10/09/18 20:59 Last Admin: 09/10/18 08:12 Dose: 5 units Documented by: Levothyroxine Sodium (Synthroid) 75 mcg PO DAILYBB [facility] Stop: 10/09/18 06:29 Last Admin: 09/10/18 05:44 Dose: 75 mcg Documented by: Miconazole Nitrate (Monistat Derm) 1 appln TOP BID [facility] Stop: 10/08/18 20:59 Last Admin: 09/10/18 08:12 Dose: 1 appln Documented by: Mirtazapine (Remeron) 30 mg PO HS [facility] Stop: 10/08/18 20:59 Last Admin: 09/09/18 20:35 Dose: 30 mg Documented by: Miscellaneous (Order Awaiting Action) 1 ea N/A QS [facility] Stop: 10/09/18 00:00 Last Admin: 09/10/18 08:10 Dose: Not Given Documented by: Miscellaneous (Carbohydrates For Hypoglycemia) 15 - 30 gm PO UD PRN PRN Reason: Hypoglycemia Treatment Stop: 10/08/18 18:35 Pantoprazole Sodium (Protonix) 40 mg PO DAILY [facility] Stop: 10/09/18 08:59 Last Admin: 09/10/18 08:11 Dose: 40 mg Documented by: Petrolatum (Butt Paste) 1 appln EXT TID [facility] Stop: 10/08/18 20:59 Last Admin: 09/10/18 08:10 Dose: 1 appln Documented by: Polyethylene Glycol (Miralax Powder Packet) 17 gm PO DAILY PRN PRN Reason: Constipation Stop: 10/08/18 18:35 Polyethylene Glycol (Miralax Powder Packet) 17 gm PO Q2D@0900 [facility] Stop: 10/10/18 08:59 Last Admin: 09/10/18 08:12 Dose: Not Given Documented by: Polymyxin/Trimethoprim Sulfate (Polytrim) 1 drops OPB Q3H [facility] Stop: 09/15/18 22:29 Last Admin: 09/10/18 08:10 Dose: 1 drops Documented by: Potassium Chloride (Klor-Con M20) 20 meq PO NOW STA Stop: 09/10/18 09:36 Pregabalin (Lyrica) 75 mg PO BID [facility] Stop: 10/08/18 20:59 Last Admin: 09/10/18 08:16 Dose: 75 mg Documented by: Ranitidine HCl (Zantac) 150 mg PO BID [facility] Stop: 10/08/18 20:59 Last Admin: 09/10/18 08:11 Dose: 150 mg Documented by: (1) Altered mental status Altered mental status type: unspecified Qualified Code(s): R41.82 - Altered mental status, unspecified
--- NOTE | 2018-09-10 10:48 | Hospitalist Progress Note ---
Date of Service September 10, 2018 Assessment & Plan (1) Acute on chronic diastolic (congestive) heart failure: Patient presented with dyspnea and hypoxia. Chest x-ray demonstrated cardiomegaly and CHF. Echocardiogram demonstrated mild concentric LVH, normal left ventricular wall motion and systolic function with an LVEF of 55-60%, grade II diastolic dysfunction. Mild aortic stenosis, mild tricuspid regurgitation, mild pulmonary hypertension were also noted. Acute on chronic left ventricular diastolic heart failure. Receiving IV furosemide. Cardiology on Case (2) Elevated troponin: Serum troponin 0.056, 0.109, 0.090. Elevated troponins could be secondary to CHF or demand ischemia. Cardiology on case (3) HTN (hypertension): Continue amlodipine. (4) Abnormal chest x-ray: Chest x-ray demonstrated cardiomegaly, pulmonary edema, density left base suggesting atelectasis or infiltrate. Afebrile. Mild leukocytosis. Normal procalcitonin. Nasopharyngeal swab for influenza A/B-. Nasal swab for MRSA colonization negative. Blood cultures negative so far. Procalcitonin. May or may not have pneumonia. Has reported allergies to amoxicillin, cefazolin, sulfa (details unknown). MRSA pneumonia very unlikely with negative MRSA screen. Discontinue vancomycin. Patient off levofloxacin. Probably best to avoid quinolones due to dementia and cardiovascular risks. Do not feel that there is clear indication of pneumonia at this time. Off all antibiotics and follow. (5) Hypoxia: O2 sats as low as 87%. Hypoxia most likely secondary to CHF and/or atelectasis. Continue supplemental oxygen as necessary. (6) GERD (gastroesophageal reflux disease): Continue pantoprazole. (7) Acute kidney injury superimposed on CKD: Serum creatinine 2.33 compared to baseline of 1.4-1.8 in 2017. Creatinine today = 1.75. Titrate diuretics. Avoid potential nephrotoxins when able. Follow. (8) Hyperkalemia: Serum potassium at time of admission was 6.1. Hyperkalemia associated with acute kidney injury. Received calcium gluconate, insulin + dextrose, furosemide. Potassium today = 3.9. Follow. (9) Diabetes mellitus, type II: Continue Lantus/NovoLog per protocol. (10) Dyslipidemia: Continue atorvastatin. (11) Hypothyroidism: Continue levothyroxine. (12) Altered mental status: Underlying dementia with worsening confusion. Head CT negative. Probable delirium/metabolic encephalopathy secondary to acute medical problems. Management of underlying problems as discussed above. Avoid anticholinergic medications and other meds with MAGNETIC PROSPECTING OPERATOR side effects whenever possible. (13) Dementia: Advanced dementia per history. Consider stopping memantine if not clearly offering benefit. Ongoing delirium monitoring/management. (14) DVT prophylaxis: SQ heparin. Ambulate as tolerated. (15) Discharge planning issues: Anticipated return to [facility]. Family Medicine follow-up with Dr. Toure. Subjective 88 y/o F with PMH insulin dependent DM II, HTN, dyslipidemia, chronic diastolic heart failure, hypothyroidism, severe dementia, CKD III, GERD, asthma, s/p pacemaker presented to ER from one detail for increased edema and hypoxia. History obtained from records and ER staff as patient unable to give any history. It is reported this morning patient was noted to have increased lower extremity edema, face looked puffy, increased dyspnea, increased lethargy. She was seen and given Lasix 40 mg orally today. Later it was reported that patient noted to be hypoxic with oxygen saturations in the 80s on room air and patient was transported to ER. No reported fevers. Unknown if patient had a cough. Daughter reports that for past 6 months pt has been very lethargic and sleeps most of the time and doesn't usually open her eyes or wake up. Sometimes when she is more alert she knows her daughter, but most of the time she does not recognize family. Pt's daughter states that in May 2018 patient had pneumonia and required nebulizer treatments and oxygen for some time after that however has not been on oxygen recently. Daughter also reports that in past patient has been very sensitive to Lasix as it causes worsening renal functions. hx echo: 2017: EF: 60-65%, no wall motion abnormality, grade II diastolic dysfunction, severe mitral annular calcification ROS-No Headache, No Visual Changes, No Nausea, No Vomiting, No Fever, No Chills, No Neck Pain or Stiffness, No Chest Pain, No Palpitations, No SOB, No GONGORA, No Cough, No Sputum, No Wheezing, No Abdominal Pain, No Diarrhea, No Hematemesis, No Hemoptysis, No Unexpected Weight Loss, No Flank pain, No Melena, No Hematochezia, No Frequency, No Urgency, No Burning, No Hematuria, No Rashes, No Diaphoresis. Appetite is Normal Physical Exam Gen-AAO x 2, NAD, Afebrile, Demented, Much more interactive today per RNs Head-NCAT, EOMI, PERRLA, Anicteric Sclera, No Posterior Pharyngeal Erythema Neck-Supple, No JVD, No Thyromegaly, No Masses, No LAD, No Bruits Lungs-Clear to Auscultation Bilaterally, No Rales, No Rhonchi, No Wheezing, No Crepitus Chest-No S4, +S1, +S2, No S3, No Murmurs, No Rubs, No Gallops, No Ectopy Abdomen-Soft, Bowel Sounds Present, Non Tender, Non Distended, No Hepatomegaly, No Splenomegaly, No Palpable Masses, No Rebound, No Rigidity, No Guarding Musculoskeletal-Full Range of Motion Bilaterally, No CVAT Extremities-No Cyanosis, No Clubbing, +Upper Extremity Edema Bilaterally Nuero-Cranial Nerves II-XII grossly intact, Motor WNL, DTRs WNL, Strength WNL, Non Focal Psych-Normal Mood Results & Data Vital Signs (Past 12 Hours) Vital Signs Temp Pulse Pulse Resp BP Pulse Ox 09/10/18 09:17 60 09/10/18 07:42 36.8 C 60 18 133/66 94 09/10/18 07:11 69 18 97 09/10/18 03:02 36.5 C 62 19 127/72 95 09/10/18 00:49 60 09/10/18 00:02 36.5 C 73 19 133/67 94 Current Diagnoses Hypothyroidism, unspecified (09/08/18) Type 2 diabetes mellitus without complications (09/08/18) Hyperlipidemia, unspecified (09/08/18) Hyperkalemia (09/08/18) Unspecified dementia without behavioral disturbance (09/08/18) Anxiety disorder, unspecified (09/08/18) Essential (primary) hypertension (09/08/18) Acute on chronic diastolic (congestive) heart failure (09/08/18) Lobar pneumonia, unspecified organism (09/08/18) Gastro-esophageal reflux disease without esophagitis (09/08/18) Gout, unspecified (09/08/18) Acute kidney failure, unspecified (09/08/18) Chronic kidney disease, unspecified (09/08/18) Hypoxemia (09/08/18) Altered mental status, unspecified (09/08/18) Abnormal levels of other serum enzymes (09/08/18) Abnormal findings on diagnostic imaging of other specified body structures (09/08/18) Encounter for administrative examinations, unspecified (09/08/18) Presence of cardiac pacemaker (09/08/18) Allergies amoxicillin Allergy (Unknown, Unverified 09/08/18 12:53) UNKNOWN cefazolin Allergy (Unknown, Unverified 09/08/18 12:53) UNKNOWN Cephalosporins Allergy (Unknown, Unverified 09/08/18 12:53) UNKNOWN clavulanic acid Allergy (Unknown, Unverified 09/08/18 12:53) UNKNOWN fentanyl Allergy (Unknown, Unverified 09/08/18 12:53) UNKNOWN Sulfa (Sulfonamide Antibiotics) Allergy (Unknown, Unverified 09/08/18 12:53) UNKNOWN Height/Weight/Isolation Height 5 ft 5 in Weight 86.4 kg Chemistry 09/08/18 09/08/18 09/08/18 13:40 16:36 21:07 Sodium 135 L 139 141 Potassium 6.1 H* 5.8 H 4.3 D Chloride 104 105 106 Carbon Dioxide 29 30 28 Anion Gap 3.0 4.0 8.0 BUN 43 H 43 H 43 H Creatinine 2.33 H 2.28 H 2.11 H Glucose 296 H 266 H 176 H 09/09/18 09/10/18 01:41 05:23 Sodium 139 137 Potassium 4.7 3.9 D Chloride 107 101 Carbon Dioxide 31 33 H Anion Gap 1.0 L 3.0 BUN 45 H 37 H Creatinine 2.07 H 1.75 H D Glucose 115 H 130 H Urinalysis 09/09/18 02:30 Urine Color Yellow Urine Appearance Clear Urine pH 5.0 Ur Specific [place] 1.016 Urine Protein Trace H Urine Glucose (UA) Negative Urine Ketones Negative Urine Blood Trace H Urine Nitrite Negative Urine Bilirubin Negative Microbiology 09/08/18 16:36 Blood Blood Culture - Preliminary No growth to date. 09/08/18 16:36 Blood Blood Culture - Preliminary No growth to date. (1) Altered mental status Altered mental status type: unspecified Qualified Code(s): R41.82 - Altered mental status, unspecified
[2018-09-10] MEDS ORDERED: LEVOFLOXACIN/D5W 500 MG/100 ML BAG IV SCH (11:00)
[2018-09-10] MEDS: ALBUMIN 25% 50 ML with FUROSEMIDE 20 MG IV SCH ×2 (11:57→21:27)
[2018-09-10] MEDS ORDERED: ALBUT/IPRATROP 3MG/0.5MG NEB 3 ML VIAL NEB PRN (16:38)
[2018-09-10] MEDS: ATORVASTATIN 20 MG TAB PO SCH (20:26)
[2018-09-10] MEDS: MIRTAZAPINE TAB 15 MG TAB PO SCH (20:26)
[2018-09-11] MEDS: TRIMETHOPRIM/POLYMYXIN B OPB SCH ×5 (00:52→11:58)
[2018-09-11 05:57] LABS: Hemoglobin 9.9 g/dL (12.0-16.0); Mean Corpuscular Volume 77.6 fL (80-100); Mean Platelet Volume 9.3 fL (7.4-10.4); Platelet Count 261 K/uL (130-400); RDW Coefficient of Variation 18.8 % (11.5-14.5); RDW Standard Deviation 53.6 fL (36.4-46.3); Red Blood Count 4.25 M/uL (4.2-5.4); White Blood Count 7.64 K/uL (4.8-10.8)
[2018-09-11] MEDS: LEVOTHYROXINE SODIUM 75 MCG TABLET PO SCH (06:06)
[2018-09-11 06:26] LABS: BUN Creatinine Ratio 21.1 (10-20); Calcium 8.6 mg/dl (8.5-10.1); Est GFR (African American) 34.9; Est GFR (Non-African American) 30.1; Potassium 3.9 mmol/L (3.5-5.1)
[2018-09-11] MEDS: INSULIN ASPART 100 UNITS/ML 3 ML PEN SC SCH ×2 (07:39→11:47)
[2018-09-11] MEDS: PANTOprazole 40 MG TAB PO SCH (07:41)
[2018-09-11] MEDS: AMLODIPINE BESYLATE 5 MG TAB PO SCH (07:42)
[2018-09-11] MEDS: ALLOPURINOL 100 MG TAB PO SCH (07:42)
[2018-09-11] MEDS: ASPIRIN 81 MG ECTAB PO SCH (07:42)
[2018-09-11] MEDS: MICONAZOLE NITRATE 2% CR 30 GM TUBE TOP SCH (07:43)
[2018-09-11] MEDS: INSULIN GLARGINE SOLOSTAR 100 UNITS/ML 3 ML PEN SC SCH (07:43)
[2018-09-11] MEDS: BUTT PASTE (ZINC OXIDE 16%) 171 APPLN/57 GM JAR EXT SCH ×2 (07:43→11:58)
[2018-09-11] MEDS: HEPARIN SOD 5,000 UNIT/0.5 ML VIAL SQ SCH (07:44)
[2018-09-11] MEDS: PREGABALIN 75 MG CAP PO SCH (07:47)
[2018-09-11] MEDS: ALBUMIN 25% 50 ML with FUROSEMIDE 20 MG IV SCH (08:19)
--- NOTE | 2018-09-11 10:47 | Discharge Summary ---
Date of Service September 11, 2018 Admission HPI Per Admitting Provider Pt is 88 y/o F with PMH insulin dependent DM II, HTN, dyslipidemia, chronic diastolic heart failure, hypothyroidism, severe dementia, CKD III, GERD, asthma, s/p pacemaker presented to ER from one detail for increased edema and hypoxia. History obtained from records and ER staff as patient unable to give any history. It is reported this morning patient was noted to have increased lower extremity edema, face looked puffy, increased dyspnea, increased lethargy. She was seen and given Lasix 40 mg orally today. Later it was reported that patient noted to be hypoxic with oxygen saturations in the 80s on room air and patient was transported to ER. No reported fevers. Unknown if patient had a cough. I contacted pt's daughter who reports that for past 6 months pt has been very lethargic and sleeps most of the time and doesn't usually open her eyes or wake up. Sometimes when she is more alert she knows her daughter, but most of the time she does not recognize family. Pt's daughter states that in May 2018 patient had pneumonia and required nebulizer treatments and oxygen for some time after that however has not been on oxygen recently. Daughter also reports that in past patient has been very sensitive to Lasix as it causes worsening renal functions. hx echo: 2017: EF: 60-65%, no wall motion abnormality, grade II diastolic dysfunction, severe mitral annular calcification Admission Exam Per Admitting Provider General:+lethargic, obese, chronic ill appearing Head: normocephalic, atraumatic Eyes: PERRL, unable to test EOM's, conjunctiva non-injected, anicteric ENT: normal inspection external ears, nose, mucous membranes dry Neck: supple, trachea midline Lungs: On 3L oxymask with O2 sat 96%, R: 22 with slight use of abdomen muscles, diminished, slight wheezing, rales at bases CV: RRR, 1-2+ BLE edema Abd: normal BS, soft, non-tender Ext: no cyanosis, no calf tenderness Neuro: Very lethargic, opens eyes to painful stimuli Skin: warm, dry Principal Diagnosis Hyponatremai Vol Overload DM II CKD CHF A/C CKD Anxiety Dementia Hypothyroidism GERD HTN HLD Pneumonia Gout Gastroparesis Asthma Discharge Exam ROS-No Headache, No Visual Changes, No Nausea, No Vomiting, No Fever, No Chills, No Neck Pain or Stiffness, No Chest Pain, No Palpitations, No SOB, No GONGORA, No Cough, No Sputum, No Wheezing, No Abdominal Pain, No Diarrhea, No Hematemesis, No Hemoptysis, No Unexpected Weight Loss, No Flank pain, No Melena, No Hem atochezia, No Frequency, No Urgency, No Burning, No Hematuria, No Rashes, No Diaphoresis. Appetite is Normal Physical Exam Gen-AAO x 2, NAD, Afebrile, Demented, Much more interactive today per RNs Head-NCAT, EOMI, PERRLA, Anicteric Sclera, No Posterior Pharyngeal Erythema Neck-Supple, No JVD, No Thyromegaly, No Masses, No LAD, No Bruits Lungs-Clear to Auscultation Bilaterally, No Rales, No Rhonchi, No Wheezing, No Crepitus Chest-No S4, +S1, +S2, No S3, No Murmurs, No Rubs, No Gallops, No Ectopy Abdomen-Soft, Bowel Sounds Present, Non Tender, Non Distended, No Hepatomegaly, No Splenomegaly, No Palpable Masses, No Rebound, No Rigidity, No Guarding Musculoskeletal-Full Range of Motion Bilaterally, No CVAT Extremities-No Cyanosis, No Clubbing, +Upper Extremity Edema Bilaterally Nuero-Cranial Nerves II-XII grossly intact, Motor WNL, DTRs WNL, Strength WNL, Non Focal Psych-Normal Mood Discharge Data Allergies Allergy/AdvReac Type Severity Reaction Status Date / Time amoxicillin Allergy Unknown UNKNOWN Unverified 09/08/18 12:53 cefazolin Allergy Unknown UNKNOWN Unverified 09/08/18 12:53 Cephalosporins Allergy Unknown UNKNOWN Unverified 09/08/18 12:53 clavulanic acid Allergy Unknown UNKNOWN Unverified 09/08/18 12:53 fentanyl Allergy Unknown UNKNOWN Unverified 09/08/18 12:53 Sulfa (Sulfonamide Allergy Unknown UNKNOWN Unverified 09/08/18 12:53 Antibiotics) Consultations 09/08/18 15:40 ED Decision to Admit Stat 09/08/18 22:14 Consult Cardiology Routine Ordered Studies 09/08/18 13:21 CT head/brain wo con Stat Current Diagnoses Hypothyroidism, unspecified (09/08/18) Type 2 diabetes mellitus without complications (09/08/18) Hyperlipidemia, unspecified (09/08/18) Hyperkalemia (09/08/18) Unspecified dementia without behavioral disturbance (09/08/18) Anxiety disorder, unspecified (09/08/18) Essential (primary) hypertension (09/08/18) Acute on chronic diastolic (congestive) heart failure (09/08/18) Lobar pneumonia, unspecified organism (09/08/18) Gastro-esophageal reflux disease without esophagitis (09/08/18) Gout, unspecified (09/08/18) Acute kidney failure, unspecified (09/08/18) Chronic kidney disease, unspecified (09/08/18) Hypoxemia (09/08/18) Altered mental status, unspecified (09/08/18) Abnormal levels of other serum enzymes (09/08/18) Abnormal findings on diagnostic imaging of other specified body structures (09/08/18) Encounter for administrative examinations, unspecified (09/08/18) Presence of cardiac pacemaker (09/08/18) Allergies amoxicillin Allergy (Unknown, Unverified 09/08/18 12:53) UNKNOWN cefazolin Allergy (Unknown, Unverified 09/08/18 12:53) UNKNOWN Cephalosporins Allergy (Unknown, Unverified 09/08/18 12:53) UNKNOWN clavulanic acid Allergy (Unknown, Unverified 09/08/18 12:53) UNKNOWN fentanyl Allergy (Unknown, Unverified 09/08/18 12:53) UNKNOWN Sulfa (Sulfonamide Antibiotics) Allergy (Unknown, Unverified 09/08/18 12:53) UNKNOWN Height/Weight/Isolation Height 5 ft 5 in Weight 85 kg Chemistry 09/10/18 09/11/18 05:23 05:38 Sodium 137 140 Potassium 3.9 D 3.9 Chloride 101 104 Carbon Dioxide 33 H 35 H Anion Gap 3.0 1.0 L BUN 37 H 32 H Creatinine 1.75 H D 1.52 H Glucose 130 H 149 H Microbiology 09/08/18 16:36 Blood Blood Culture - Preliminary No growth to date. 09/08/18 16:36 Blood Blood Culture - Preliminary No growth to date. Hospital Course (1) Acute on chronic diastolic (congestive) heart failure: Patient presented with dyspnea and hypoxia. Chest x-ray demonstrated cardiomegaly and CHF. Echocardiogram demonstrated mild concentric LVH, normal left ventricular wall motion and systolic function with an LVEF of 55-60%, grade II diastolic dysfunction. Mild aortic stenosis, mild tricuspid regurgitation, mild pulmonary hypertension were also noted. Acute on chronic left ventricular diastolic heart failure. Received IV furosemide. Cardiology was on Case (2) Elevated troponin: Serum troponin 0.056, 0.109, 0.090. Elevated troponins could be secondary to CHF or demand ischemia. Cardiology was on case (3) HTN (hypertension): Continue amlodipine. (4) Abnormal chest x-ray: Chest x-ray demonstrated cardiomegaly, pulmonary edema, density left base suggesting atelectasis or infiltrate. Afebrile. Mild leukocytosis. Normal procalcitonin. Nasopharyngeal swab for influenza A/B-. Nasal swab for MRSA colonization negative. Blood cultures negative so far. Procalcitonin. May or may not have pneumonia. Has reported allergies to amoxicillin, cefazolin, sulfa (details unknown). MRSA pneumonia very unlikely with negative MRSA screen. Discontinue vancomycin. Patient off levofloxacin. Probably best to avoid quinolones due to dementia and cardiovascular risks. Do not feel that there is clear indication of pneumonia at this time. Off all antibiotics and follow. (5) Hypoxia: O2 sats as low as 87%. Hypoxia most likely secondary to CHF and/or atelectasis. Continue supplemental oxygen as necessary. (6) GERD (gastroesophageal reflux disease): Continue pantoprazole. (7) Acute kidney injury superimposed on CKD: Serum creatinine 2.33 compared to baseline of 1.4-1.8 in 2017. Avoid potential nephrotoxins when able. Follow. (8) Hyperkalemia: Serum potassium at time of admission was 6.1. Hyperkalemia associated with acute kidney injury. Received calcium gluconate, insulin + dextrose, furosemide. (9) Diabetes mellitus, type II: OutPT Regimen. (10) Dyslipidemia: Continue atorvastatin. (11) Hypothyroidism: Continue levothyroxine. (12) Altered mental status: Underlying dementia Head CT negative. Probable delirium/metabolic encephalopathy secondary to acute medical problems. Management of underlying problems as discussed above. Avoid anticholinergic medications and other meds with CASING MIXER side effects whenever possible. (13) Dementia: Advanced dementia per history. Consider stopping memantine if not clearly offering benefit. Ongoing delirium monitoring/management. (14) DVT prophylaxis: SQ heparin. Ambulate as tolerated. (15) Discharge planning issues: Return to [facility]. Today Family Medicine follow-up with Dr. Toure. Total Time Total Time Spent Total Time Spent (In Minutes): 50 Mins Total Time Includes: Examination of the Patient, Discharge Planning, Medication Reconciliation and Communication With Other Providers Discharge Plan Discharge Items Patient Disposition: Transfer Group Home Fac Reason For Visit: HYPOXIA,FLUID OVERLOAD Discharge Diagnosis: Hyponatremai Vol Overload DM II CKD CHF A/C CKD Anxiety Dementia Hypothyroidism GERD HTN HLD Gout Gastroparesis Asthma Condition: Fair Discharge Goals: Improve disease control Activity: As commented below Activity Comment: As Tolerated Lifting: None Bathing: No limitations Exercise/Sports: Gradually increase as tolerated Driving/Machine Use: No limitations Weightbearing: Left weightbearing and Right weightbearing Non-emergency contact: Primary Care Provider, Sewer Hand and Sub Assembly Team Worker Call non-emergency contact if: your symptoms worsen and your pain is unusual for you Follow-up/Referrals: Beck Reinoso DO [Sewer Hand] - (2-3 weeks) Lisy Toure MD [Primary Care Provider] - Diet: Carb Consistent or DM2 and Heart Healthy Fluids: 1200ml (5 cups) Addtl Provider Instructions: Monitor Electrolytes and daily weight Prescriptions: New ipratropium-albuterol 0.5 mg-3 mg(2.5 mg base)/3 mL Solution For Nebulization 3 ml NEB QIDR PRN (Reason: shortness of breath or wheezing) Qty: 90 RF: 0 acetaminophen [Mapap (acetaminophen)] 325 mg Tablet 650 mg PO Q4H PRN (Reason: fever or pain) Qty: 100 RF: 0 heparin, porcine (PF) 5,000 unit/0.5 mL Syringe 5,000 unit subcut Q12 Qty: 15 RF: 0 sodium chloride 1 gram tablet 1,000 mg PO TID Qty: 30 RF: 0 Continued miconazole nitrate 2 % Cream 1 applic TOPICAL BID RF: 0 levothyroxine 75 mcg Tablet 75 mcg PO DAILY RF: 0 Novolog U-100 Insulin aspart 100 unit/mL Solution 14 unit SUBCUT DIRECTED RF: 0 ranitidine HCl 150 mg Tablet 150 mg PO BID RF: 0 Lyrica 75 mg Capsule 75 mg PO BID RF: 0 atorvastatin 20 mg Tablet 20 mg PO HS RF: 0 amlodipine 5 mg Tablet 5 mg PO DAILY RF: 0 allopurinol 100 mg Tablet 100 mg PO DAILY RF: 0 Novolog U-100 Insulin aspart 100 unit/mL Solution 22 unit SUBCUT UD RF: 0 mirtazapine 30 mg Tablet 30 mg PO HS RF: 0 aspirin 81 mg Tablet,Chewable 81 mg PO DAILY RF: 0 Basaglar KwikPen U-100 Insulin 100 unit/mL (3 mL) Insulin Pen 42 unit SUBCUT BID RF: 0 polyethylene glycol 3350 [Miralax] 17 gram Powder In Packet 17 g PO Q2D RF: 0 pantoprazole 20 mg Tablet,Delayed Release (Dr/Ec) 20 mg PO DAILY RF: 0 zinc oxide 40 % Ointment 1 applic TOPICAL TID RF: 0 Discontinued furosemide [Lasix] 40 mg Tablet 40 mg PO DAILY RF: 0 memantine 7 mg Capsule,Sprinkle,Er 24hr 7 mg PO DAILY RF: 0 Stand-Alone Forms: [facility] Discharge Orders: Discharge Order (Routine); Ordered 09/11/18 Ordered By: Ryan Ricks Skilled Items Patient informed of condition?: Yes DNR: Yes Discharge Level of Care: Skilled Communicable Disease: No Discharge Prognosis: Improving Admission Data Admit Date/Time: 09/08/18 16:43 Attending Provider: Ryan Ricks Admit Provider: Brandi Daniel Primary Care Provider: Lisy Toure Other Providers: Grant Salamanca ; Beck Reinoso ; Darci Catalan ; Simba Gibbons ; Kartik Watkins ; Kun Escalera ; Génesis Eason ; Lisa Tamez ; Brandi Daniel Service: Telemetry
== END 2018-09-11 16:04 | DRG 291 ==
LOC: ED 12:28 → 2S 16:43 → SUATTDRO 16:43 → 2S 17:45